=== PATIENT | male | born 1945 | race Caucasian/White ===

== ENCOUNTER 2017-06-13 12:09 | Inpatient (IN) | payer MEDICARE, OTHER ==
[~2017-06-13] VITALS: Ht 160 cm; Wt 108.0 kg
[~2017-06-13 12:09] MED LIST: ALBU8.5H5 INH; ALLO100T30 PO; ASPI-496 PO; CARV12.543 PO; CHOL500045 PO; FENO54TA17 PO; FLUT1DIS3 INH; FURO-93 PO; GEMF600T3 PO; INDO75CA3 PO; INSU100I29 SC; IRON; IRON 65 MG PO; LOSA25TA5 PO; MECL-76 PO; METF500T4 PO; MULT-224 PO; NABU500T PO; NATE120T2 PO; POTA10TA11 PO; RANI150T8 PO; SIMV20TA PO
[2017-06-13 12:35] LABS: HEMATOCRIT 42.5 % (39.2-51.8); HEMOGLOBIN 13.7 g/dL (13.7-18.0); WHITE BLOOD COUNT 5.1 x10^3/uL (3.4-10)
[2017-06-13 12:43] LABS: ASPARTATE AMINO TRANSFERASE 14 U/L (15-37); BLOOD UREA NITROGEN 22 mg/dL (7-18)
[2017-06-13 12:49] LABS: IS PT STATUS REG ER OR PRE ER? YES
[2017-06-13] MEDS ORDERED: ASPIRIN 81 MG TABLET CHEW ONE (12:49)
[2017-06-13] MEDS ORDERED: CEFTRIAXONE PMX 1GM/50ML 50 ML IVPB ONE (13:00)
[2017-06-13] MEDS ORDERED: ASPIRIN 81 MG TABLET CHEW PO ONE (13:00)
[2017-06-13] MEDS ORDERED: AZITHROMYCIN 500 MG in SODIUM CHLORIDE 0.9% 250 ML IVPB ONE (13:00)
[2017-06-13] MEDS ORDERED: SODIUM CHLORIDE FLUSH 10ML SYR IVF ONE (13:00)
[2017-06-13] MEDS ORDERED: CARV25TA12 PO ×2 (13:08→14:49)
[2017-06-13] MEDS ORDERED: CEFTRIAXONE PMX 1GM/50ML 50 ML ONE (14:06)
[2017-06-13] MEDS: AZITHROMYCIN 500 MG in SODIUM CHLORIDE 0.9% 250 ML IV SCH (14:30)
[2017-06-13] MEDS: CEFTRIAXONE PMX 1GM/50ML 50 ML IV SCH (14:30)
[2017-06-13] MEDS ORDERED: ATOR20TA9 PO (14:58)
[2017-06-13] MEDS ORDERED: INSU300I INJ (14:58)
[2017-06-13] MEDS ORDERED: NITROSPRAY (14:58)
[2017-06-13] MEDS ORDERED: FENO48TA5 PO (14:58)
[2017-06-13] MEDS ORDERED: LOSA25TA5 PO (14:58)
[2017-06-13] MEDS ORDERED: RANI150T8 PO (14:58)
[2017-06-13] MEDS ORDERED: ONDANSETRON 2MG/ML, 2ML IVPush PRN (15:00)
[2017-06-13] MEDS ORDERED: ACETAMINOPHEN 325 MG TABLET PO PRN (15:00)
[2017-06-13] MEDS ORDERED: ONDANSETRON ODT 4 MG PO PRN (15:00)
[2017-06-13] MEDS ORDERED: ALBUTEROL SULFATE 2.5 MG/3 ML NPPB PRN (16:30)
[2017-06-13] MEDS ORDERED: ENOXAPARIN 40 MG/0.4 ML ONE (17:38)
[2017-06-13] MEDS: ENOXAPARIN 40 MG/0.4 ML SQ SCH (17:43)
[2017-06-13 18:22] LABS: IS PT STATUS REG ER OR PRE ER? YES
[2017-06-13] MEDS ORDERED: ATORVASTATIN 20 MG TABLET PO SCH (21:00)
[2017-06-13] MEDS: INSULIN DETEMIR 100 UNITS/ML, PEN SQ-INSULIN SCH (21:00)
[2017-06-13] MEDS: ADVAIR INH SCH (21:00)
[2017-06-13] MEDS: CARVEDILOL 25 MG TABLET PO SCH (22:37)
[2017-06-13] MEDS: ALLOPURINOL 100 MG TABLET PO SCH ×2 (22:37→22:39)
[2017-06-13] MEDS: SIMVASTATIN 20 MG TABLET PO SCH (22:37)
[2017-06-13] MEDS: FAMOTIDINE 20 MG TABLET PO SCH (22:37)
[2017-06-14 00:36] LABS: RAPID INFLUENZA A Negative (Negative); RAPID INFLUENZA B Negative (Negative)
[2017-06-14 01:23] LABS: IS PT STATUS REG ER OR PRE ER? NO
[2017-06-14 01:26] VITALS: BP 139/78
[2017-06-14 05:08] LABS: HEMATOCRIT 38.6 % (39.2-51.8); HEMOGLOBIN 12.7 g/dL (13.7-18.0); WHITE BLOOD COUNT 4.4 x10^3/uL (3.4-10)
[2017-06-14 05:17] LABS: BLOOD UREA NITROGEN 22 mg/dL (7-18)
[2017-06-14 05:20] LABS: ASPARTATE AMINO TRANSFERASE 10 U/L (15-37)
[2017-06-14 06:54] VITALS: BP 126/70
[2017-06-14] MEDS ORDERED: FUROSEMIDE 20 MG TABLET PO SCH (09:00)
[2017-06-14] MEDS: FENOFIBRATE NANOCRYSTALLIZED 48 MG HOMEMEDPO SCH (09:00)
[2017-06-14] MEDS ORDERED: POTASSIUM CHLORIDE 10 MEQ TABLET.ER PO SCH (09:00)
[2017-06-14] MEDS: ADVAIR INH SCH ×2 (09:00→21:15)
[2017-06-14] MEDS ORDERED: FUROSEMIDE 40 MG TABLET ONE (09:06)
[2017-06-14] MEDS: methylPREDNISolone SOD SUCC 125 MG/2 ML IVPush SCH ×3 (09:10→23:34)
[2017-06-14] MEDS: GUAIFENESIN ER 600 MG TABLET PO SCH ×2 (09:11→21:26)
[2017-06-14] MEDS: ASPIRIN 81 MG TABLET EC PO SCH (09:11)
[2017-06-14] MEDS: FAMOTIDINE 20 MG TABLET PO SCH (09:12)
[2017-06-14] MEDS: ALLOPURINOL 100 MG TABLET PO SCH ×3 (09:12→21:25)
[2017-06-14] MEDS: CARVEDILOL 25 MG TABLET PO SCH ×2 (09:12→21:25)
[2017-06-14] MEDS: LOSARTAN 25MG TABLET PO SCH (09:12)
[2017-06-14 14:38] VITALS: BP 135/85
[2017-06-14] MEDS: CEFTRIAXONE PMX 1GM/50ML 50 ML IV SCH (17:27)
[2017-06-14] MEDS: ENOXAPARIN 40 MG/0.4 ML SQ SCH (17:34)
[2017-06-14] MEDS: AZITHROMYCIN 500 MG in SODIUM CHLORIDE 0.9% 250 ML IV SCH (17:52)
[2017-06-14 19:24] VITALS: BP 148/88
[2017-06-14] MEDS: INSULIN DETEMIR 100 UNITS/ML, PEN SQ-INSULIN SCH (21:00)
[2017-06-14] MEDS: SIMVASTATIN 20 MG TABLET PO SCH (21:26)
[2017-06-15 01:22] VITALS: BP 142/80
[2017-06-15 05:48] LABS: BLOOD UREA NITROGEN 26 mg/dL (7-18)
[2017-06-15] MEDS: methylPREDNISolone SOD SUCC 125 MG/2 ML IVPush SCH ×2 (07:27→18:28)
[2017-06-15] MEDS: SODIUM CHLORIDE 0.9% 1,000 ML IV SCH ×2 (07:27→20:04)
[2017-06-15 07:47] VITALS: BP 126/80
[2017-06-15] MEDS: ASPIRIN 81 MG TABLET EC PO SCH (09:29)
[2017-06-15] MEDS: FAMOTIDINE 20 MG TABLET PO SCH (09:29)
[2017-06-15] MEDS: ALLOPURINOL 100 MG TABLET PO SCH ×3 (09:29→20:02)
[2017-06-15] MEDS: FENOFIBRATE NANOCRYSTALLIZED 48 MG HOMEMEDPO SCH (09:30)
[2017-06-15] MEDS: GUAIFENESIN ER 600 MG TABLET PO SCH ×2 (09:30→20:02)
[2017-06-15] MEDS: LOSARTAN 25MG TABLET PO SCH (09:30)
[2017-06-15] MEDS: CARVEDILOL 25 MG TABLET PO SCH ×2 (09:30→20:02)
[2017-06-15] MEDS: ADVAIR INH SCH ×2 (09:30→20:06)
[2017-06-15 13:40] VITALS: BP 147/78
[2017-06-15] MEDS: CEFTRIAXONE PMX 1GM/50ML 50 ML IV SCH (14:33)
[2017-06-15] MEDS: ENOXAPARIN 40 MG/0.4 ML SQ SCH (14:33)
[2017-06-15] MEDS: AZITHROMYCIN 500 MG in SODIUM CHLORIDE 0.9% 250 ML IV SCH (18:28)
[2017-06-15 18:58] VITALS: BP 124/79
[2017-06-15] MEDS: SIMVASTATIN 20 MG TABLET PO SCH (20:03)
[2017-06-15] MEDS: INSULIN DETEMIR 100 UNITS/ML, PEN SQ-INSULIN SCH (20:11)
[2017-06-16 00:48] VITALS: BP 126/91
[2017-06-16 06:51] LABS: BLOOD UREA NITROGEN 33 mg/dL (7-18)
[2017-06-16] MEDS: FENOFIBRATE NANOCRYSTALLIZED 48 MG HOMEMEDPO SCH (09:00)
[2017-06-16] MEDS: ADVAIR INH SCH ×2 (09:00→20:18)
[2017-06-16] MEDS: GUAIFENESIN ER 600 MG TABLET PO SCH ×2 (10:22→20:16)
[2017-06-16] MEDS: ASPIRIN 81 MG TABLET EC PO SCH (10:22)
[2017-06-16] MEDS: FAMOTIDINE 20 MG TABLET PO SCH (10:22)
[2017-06-16] MEDS: methylPREDNISolone SOD SUCC 125 MG/2 ML IVPush SCH ×2 (10:22→20:15)
[2017-06-16] MEDS: CARVEDILOL 25 MG TABLET PO SCH ×2 (10:22→20:16)
[2017-06-16] MEDS: ALLOPURINOL 100 MG TABLET PO SCH ×3 (10:23→20:16)
[2017-06-16] MEDS: LOSARTAN 25MG TABLET PO SCH (10:23)
[2017-06-16] MEDS ORDERED: LABETALOL 5MG/ML, 20ML IVPush PRN (10:30)
[2017-06-16] MEDS: ENOXAPARIN 40 MG/0.4 ML SQ SCH (16:56)
[2017-06-16] MEDS: CEFTRIAXONE PMX 1GM/50ML 50 ML IV SCH (16:56)
[2017-06-16 18:53] VITALS: BP 137/82
[2017-06-16] MEDS: SIMVASTATIN 20 MG TABLET PO SCH (20:17)
[2017-06-16] MEDS: AZITHROMYCIN 500 MG in SODIUM CHLORIDE 0.9% 250 ML IV SCH (20:31)
[2017-06-16] MEDS: INSULIN DETEMIR 100 UNITS/ML, PEN SQ-INSULIN SCH (20:32)
[2017-06-16 22:22] LABS: POTASSIUM,URINE RANDOM 38 mmol/L
[2017-06-17 01:01] VITALS: BP 129/77
[2017-06-17 05:41] LABS: HEMOGLOBIN 12.9 g/dL (13.7-18.0); WHITE BLOOD COUNT 5.6 x10^3/uL (3.4-10)
[2017-06-17 06:08] LABS: BLOOD UREA NITROGEN 37 mg/dL (7-18)
[2017-06-17 06:53] VITALS: BP 119/83
[2017-06-17] MEDS: methylPREDNISolone SOD SUCC 125 MG/2 ML IVPush SCH (08:27)
[2017-06-17] MEDS: ASPIRIN 81 MG TABLET EC PO SCH (08:27)
[2017-06-17] MEDS: ALLOPURINOL 100 MG TABLET PO SCH ×2 (08:27→17:12)
[2017-06-17] MEDS: GUAIFENESIN ER 600 MG TABLET PO SCH (08:27)
[2017-06-17] MEDS: CARVEDILOL 25 MG TABLET PO SCH (08:27)
[2017-06-17] MEDS: FENOFIBRATE NANOCRYSTALLIZED 48 MG HOMEMEDPO SCH (08:31)
[2017-06-17] MEDS: ADVAIR INH SCH (08:31)
[2017-06-17] MEDS: FAMOTIDINE 20 MG TABLET PO SCH (08:33)
[2017-06-17 12:46] VITALS: BP 131/81
[2017-06-17] MEDS ORDERED: PRED10TA PO (15:31)
[2017-06-17] MEDS ORDERED: CEFP200T PO (15:31)
[2017-06-17] MEDS ORDERED: APIX5TAB PO (15:31)
[2017-06-17] MEDS ORDERED: ALBU8.5H8 IH (15:31)
[2017-06-17] MEDS ORDERED: APIXABAN 5 MG TABLET PO SCH (16:00)
== END 2017-06-17 19:00 | disposition home or self-care (01) | DRG 682 ==
LOC: ED 13:07 → EDIP 13:08 → ED 13:26 → 3NE 19:00
PROVIDERS: ADMIT Internal Medicine; ATTEND Internal Medicine
PROC: 5A09357 Assistance with Respiratory Ventilation, Less than 24 Consecutive Hours, Continuous Positive Airway Pressure (ICD-10-PCS; principal; 2017-06-14)
PROC: 5A09357 Assistance with Respiratory Ventilation, Less than 24 Consecutive Hours, Continuous Positive Airway Pressure (ICD-10-PCS; 2017-06-16)
PROC: 5A09357 Assistance with Respiratory Ventilation, Less than 24 Consecutive Hours, Continuous Positive Airway Pressure (ICD-10-PCS; 2017-06-17)
DX: N17.9 Acute kidney failure, unspecified (principal); J96.20 Acute and chronic respiratory failure, unspecified whether with hypoxia or hypercapnia; J18.1 Lobar pneumonia, unspecified organism; I13.0 Hypertensive heart and chronic kidney disease with heart failure and stage 1 through stage 4 chronic kidney disease, or unspecified chronic kidney disease; E11.22 Type 2 diabetes mellitus with diabetic chronic kidney disease; I42.9 Cardiomyopathy, unspecified; I50.40 Unspecified combined systolic (congestive) and diastolic (congestive) heart failure; Z68.41 Body mass index [BMI] 40.0-44.9, adult; J44.0 Chronic obstructive pulmonary disease with (acute) lower respiratory infection; J44.1 Chronic obstructive pulmonary disease with (acute) exacerbation; E78.5 Hyperlipidemia, unspecified; G47.33 Obstructive sleep apnea (adult) (pediatric); H81.09 Meniere's disease, unspecified ear; I25.10 Atherosclerotic heart disease of native coronary artery without angina pectoris; I25.2 Old myocardial infarction; I35.0 Nonrheumatic aortic (valve) stenosis; I48.0 Paroxysmal atrial fibrillation; I49.3 Ventricular premature depolarization; E66.9 Obesity, unspecified; G89.29 Other chronic pain; M19.90 Unspecified osteoarthritis, unspecified site; M54.9 Dorsalgia, unspecified; K21.9 Gastro-esophageal reflux disease without esophagitis; M10.9 Gout, unspecified; N18.9 Chronic kidney disease, unspecified; Z79.4 Long term (current) use of insulin; Z82.3 Family history of stroke; Z82.49 Family history of ischemic heart disease and other diseases of the circulatory system; Z87.891 Personal history of nicotine dependence; Z95.1 Presence of aortocoronary bypass graft; Z99.81 Dependence on supplemental oxygen
CPT/HCPCS: 36415; 71010; 80048; 80053; 82436; 82570; 82962; 83605; 83735; 83880; 84100; 84133; 84145; 84300; 84484; 85025; 87040; 87400; 93005; 93306; 94660; 99285; J0456; J0696; J1650; J1815; J2930; J7030; J7050

== ENCOUNTER 2017-07-29 09:43 | Inpatient (IN) | payer MEDICARE, OTHER ==
[~2017-07-29] VITALS: Ht 160 cm; Wt 108.9 kg
[~2017-07-29 09:43] MED LIST changes: +ALBU8.5H8 IH; +APIX5TAB PO; +ATOR20TA9 PO; +CARV25TA12 PO; +CEFP200T PO; +FENO48TA5 PO; +INSU300I INJ; +NITROSPRAY; +PRED10TA PO
[2017-07-29 10:19] LABS: BASOPHILS # (AUTO) 0.02 x10^3/uL (0-0.1); BASOPHILS % (AUTO) 0 % (0-1); EOSINOPHILS # (AUTO) 0.04 x10^3/uL (0-0.4); EOSINOPHILS % (AUTO) 1 % (1-7); LYMPHOCYTES # (AUTO) 0.98 x10^3/uL (1-3.4); LYMPHOCYTES % (AUTO) 15 % (22-44); MD NO; MEAN CORPUSCULAR HEMOGLOBIN 29.9 pg (27.5-34.5); MEAN CORPUSCULAR HGB CONC 31.7 g/dL (33.2-36.2); MEAN CORPUSCULAR VOLUME 94.3 fL (81-97); MONOCYTES # (AUTO) 0.75 x10^3/uL (0.2-0.8); MONOCYTES % (AUTO) 11 % (2-9); NEUTROPHILS # (AUTO) 4.89 x10^3/uL (1.8-6.8); NEUTROPHILS % (AUTO) 73 % (42-75); PLATELET COUNT 107 x10^3/uL (130-400); RED CELL DISTRIBUTION WIDTH 17.2 % (9.4-14.8)
[2017-07-29 10:28] LABS: INTERNATIONAL NORMALIZED RATIO 1.62 (0.93-1.1); PROTHROMBIN TIME 16.7 Seconds (9.6-11.5)
[2017-07-29 10:33] LABS: ALANINE AMINOTRANSFERASE 12 U/L (12-78); ALBUMIN 2.9 g/dL (3.4-5.0); ANION GAP 6 mmol/L (5-15); CALCIUM 8.3 mg/dL (8.5-10.1); CHLORIDE 107 mmol/L (98-107); CREATININE 1.04 mg/dL (0.7-1.3)
[2017-07-29 10:37] LABS: ALKALINE PHOSPHATASE 47 U/L (45-117); BILIRUBIN,TOTAL 0.6 mg/dL (0.2-1.0); TOTAL PROTEIN 6.4 g/dL (6.4-8.2); TROPONIN I < 0.015 ng/mL (0.000-0.045)
[2017-07-29] MEDS ORDERED: FUROSEMIDE 40 MG/4 ML IV ONE (12:30)
[2017-07-29] MEDS ORDERED: FUROSEMIDE 40 MG/4 ML ONE (12:46)
[2017-07-29] MEDS ORDERED: ACETAMINOPHEN 325 MG TABLET PO PRN (14:00)
[2017-07-29] MEDS ORDERED: DOCUSATE 100 MG CAPSULE PO PRN (14:00)
[2017-07-29] MEDS ORDERED: NITROGLYCERIN 0.4 MG BOTTLE (25 TABS) SL PRN (14:00)
[2017-07-29] MEDS ORDERED: ONDANSETRON 2MG/ML, 2ML IVPush PRN (14:00)
[2017-07-29] MEDS ORDERED: POLYETHYLENE GLYCOL 17 GM PACKET PO PRN (14:00)
[2017-07-29] MEDS ORDERED: morphine SULFATE 10 MG/ML, 1ML IVPush PRN (14:00)
[2017-07-29] MEDS ORDERED: ONDANSETRON ODT 4 MG PO PRN (14:00)
[2017-07-29 14:02] VITALS: BP 155/92
[2017-07-29 14:28] VITALS: BP 155/92
[2017-07-29] MEDS ORDERED: ALBUTEROL SULFATE 2.5 MG/3 ML NPPB PRN (14:30)
[2017-07-29] MEDS ORDERED: FERROUS SULFATE 325 MG TABLET PO SCH (14:30)
[2017-07-29] MEDS: INSULIN LISPRO 100 UNITS/ML, PEN SQ-INSULIN SCH ×2 (16:00→20:32)
[2017-07-29] MEDS ORDERED: MAGNESIUM SULFATE PMX 4GM/100M 100 ML IV ONE ×2 (16:00→17:00)
[2017-07-29] MEDS: ALLOPURINOL 100 MG TABLET PO SCH ×2 (17:26→20:29)
[2017-07-29] MEDS: FLUCONAZOLE 200 MG TABLET PO SCH (17:50)
[2017-07-29] MEDS ORDERED: WARFARIN 5 MG TABLET PO-COUM ONE (18:00)
[2017-07-29] MEDS ORDERED: OMNIPAQUE 350 MG/ML, 100ML BOTTLE ONE (19:04)
[2017-07-29 20:25] VITALS: BP 146/79
[2017-07-29] MEDS: SIMVASTATIN 20 MG TABLET PO SCH (20:28)
[2017-07-29] MEDS: FAMOTIDINE 20 MG TABLET PO SCH (20:28)
[2017-07-29] MEDS: DOXYCYCLINE 100MG TABLET PO SCH (20:29)
[2017-07-29] MEDS: CARVEDILOL 25 MG TABLET PO SCH (20:29)
[2017-07-29] MEDS: CEFDINIR 300 MG CAPSULE PO SCH (20:29)
[2017-07-29] MEDS: LOSARTAN 25MG TABLET PO SCH (20:29)
[2017-07-29] MEDS ORDERED: CEFPODOXIME PROXETIL 200 MG PO SCH (21:00)
[2017-07-30 02:30] VITALS: BP 131/75
[2017-07-30 05:07] LABS: BASOPHILS # (AUTO) 0.04 x10^3/uL (0-0.1); BASOPHILS % (AUTO) 1 % (0-1); EOSINOPHILS # (AUTO) 0.04 x10^3/uL (0-0.4); EOSINOPHILS % (AUTO) 1 % (1-7); LYMPHOCYTES # (AUTO) 1.23 x10^3/uL (1-3.4); LYMPHOCYTES % (AUTO) 22 % (22-44); MD NO; MEAN CORPUSCULAR HEMOGLOBIN 30.9 pg (27.5-34.5); MEAN CORPUSCULAR HGB CONC 33.1 g/dL (33.2-36.2); MEAN CORPUSCULAR VOLUME 93.5 fL (81-97); MEAN PLATELET VOLUME 9.7 fL (7.4-10.4); MONOCYTES # (AUTO) 0.72 x10^3/uL (0.2-0.8); MONOCYTES % (AUTO) 13 % (2-9); NEUTROPHILS # (AUTO) 3.59 x10^3/uL (1.8-6.8); NEUTROPHILS % (AUTO) 64 % (42-75); PLATELET COUNT 100 x10^3/uL (130-400); RED BLOOD COUNT 3.49 x10^6/uL (4.38-5.82); RED CELL DISTRIBUTION WIDTH 17.4 % (9.4-14.8)
[2017-07-30 05:08] LABS: INTERNATIONAL NORMALIZED RATIO 1.99 (0.93-1.1); PROTHROMBIN TIME 20.4 Seconds (9.6-11.5)
[2017-07-30 05:17] LABS: CHLORIDE 103 mmol/L (98-107)
[2017-07-30 05:28] LABS: ANION GAP 6 mmol/L (5-15); CALCIUM 8.3 mg/dL (8.5-10.1); CREATININE 1.17 mg/dL (0.7-1.3); TROPONIN I 0.026 ng/mL (0.000-0.045)
[2017-07-30 07:14] VITALS: BP 118/74
[2017-07-30] MEDS: INSULIN LISPRO 100 UNITS/ML, PEN SQ-INSULIN SCH ×4 (07:48→21:00)
[2017-07-30] MEDS ORDERED: REGADENOSON 0.4 MG/5 ML SYRINGE ONE (08:16)
[2017-07-30] MEDS: ALLOPURINOL 100 MG TABLET PO SCH ×3 (09:00→21:58)
[2017-07-30] MEDS ORDERED: LOSARTAN 25MG TABLET PO SCH (09:00)
[2017-07-30] MEDS ORDERED: MAGNESIUM SULFATE PMX 2GM/50ML 50 ML IV ONE (12:00)
[2017-07-30] MEDS ORDERED: SPIRONOLACTONE 100 MG TABLET ONE (12:04)
[2017-07-30 12:05] VITALS: BP 117/64
[2017-07-30] MEDS: FUROSEMIDE 40 MG/4 ML IV SCH (12:10)
[2017-07-30] MEDS: SPIRONOLACTONE 25 MG TABLET PO SCH (12:11)
[2017-07-30] MEDS: ASPIRIN 81 MG TABLET EC PO SCH (12:12)
[2017-07-30] MEDS: CHOLECALCIFEROL 1,000 UNIT TABLET PO SCH (12:13)
[2017-07-30] MEDS: FENOFIBRATE 54 MG TABLET PO SCH (12:14)
[2017-07-30] MEDS: CEFDINIR 300 MG CAPSULE PO SCH ×2 (12:14→21:59)
[2017-07-30] MEDS: FLUCONAZOLE 200 MG TABLET PO SCH (12:14)
[2017-07-30] MEDS: CARVEDILOL 25 MG TABLET PO SCH ×2 (12:15→21:59)
[2017-07-30] MEDS: FAMOTIDINE 20 MG TABLET PO SCH ×2 (12:15→21:59)
[2017-07-30] MEDS: MULTIVITAMIN 1 TABLET PO SCH (12:15)
[2017-07-30] MEDS: DOXYCYCLINE 100MG TABLET PO SCH ×2 (12:16→21:00)
[2017-07-30] MEDS: LOSARTAN 25MG TABLET PO SCH ×2 (12:16→21:58)
[2017-07-30] MEDS: FERROUS SULFATE 325 MG TABLET PO SCH (12:17)
[2017-07-30] MEDS: MECLIZINE CHEWABLE 25 MG TAB PO SCH (12:57)
[2017-07-30] MEDS: INSULIN GLARGINE 100 UNITS/ML, PEN SQ-INSULIN SCH (12:58)
[2017-07-30] MEDS ORDERED: WARFARIN 2.5 MG TABLET PO-COUM ONE (18:00)
[2017-07-30 19:51] VITALS: BP 125/78
[2017-07-30] MEDS: SIMVASTATIN 20 MG TABLET PO SCH (21:59)
[2017-07-31 01:23] VITALS: BP 119/74
[2017-07-31] MEDS ORDERED: MAALOX/HYOSCYAMINE/LIDOCAINE 45 ML BTL PO ONE (02:30)
[2017-07-31 05:19] LABS: INTERNATIONAL NORMALIZED RATIO 2.52 (0.93-1.1); PROTHROMBIN TIME 25.7 Seconds (9.6-11.5)
[2017-07-31 05:24] LABS: ALBUMIN 2.8 g/dL (3.4-5.0); ANION GAP 10 mmol/L (5-15); CALCIUM 8.2 mg/dL (8.5-10.1); CHLORIDE 104 mmol/L (98-107)
[2017-07-31 05:35] LABS: % IRON SATURATION 10 % (20-55); CREATININE 1.36 mg/dL (0.7-1.3); IRON LEVEL 26 mcg/dL (65-175); TOTAL IRON BINDING CAPACITY 273 mcg/dL (250-450)
[2017-07-31] MEDS: INSULIN LISPRO 100 UNITS/ML, PEN SQ-INSULIN SCH ×4 (06:57→21:00)
[2017-07-31 07:32] VITALS: BP 105/74
[2017-07-31] MEDS ORDERED: SPIRONOLACTONE 100 MG TABLET ONE (09:06)
[2017-07-31] MEDS: LOSARTAN 25MG TABLET PO SCH ×2 (09:25→21:17)
[2017-07-31] MEDS: CHOLECALCIFEROL 1,000 UNIT TABLET PO SCH (09:26)
[2017-07-31] MEDS: MULTIVITAMIN 1 TABLET PO SCH (09:27)
[2017-07-31] MEDS: FAMOTIDINE 20 MG TABLET PO SCH ×2 (09:27→21:17)
[2017-07-31] MEDS: ALLOPURINOL 100 MG TABLET PO SCH ×3 (09:27→21:17)
[2017-07-31] MEDS: FLUCONAZOLE 200 MG TABLET PO SCH (09:27)
[2017-07-31] MEDS: ASPIRIN 81 MG TABLET EC PO SCH (09:27)
[2017-07-31] MEDS: CARVEDILOL 25 MG TABLET PO SCH ×2 (09:27→21:16)
[2017-07-31] MEDS: CEFDINIR 300 MG CAPSULE PO SCH (09:27)
[2017-07-31] MEDS: DOXYCYCLINE 100MG TABLET PO SCH (09:27)
[2017-07-31] MEDS: SPIRONOLACTONE 25 MG TABLET PO SCH (09:28)
[2017-07-31] MEDS: MECLIZINE CHEWABLE 25 MG TAB PO SCH (09:29)
[2017-07-31] MEDS: FUROSEMIDE 40 MG/4 ML IV SCH (09:29)
[2017-07-31] MEDS: INSULIN GLARGINE 100 UNITS/ML, PEN SQ-INSULIN SCH (09:32)
[2017-07-31 12:27] VITALS: BP 124/79
[2017-07-31] MEDS: FENOFIBRATE 54 MG TABLET PO SCH (12:54)
[2017-07-31] MEDS: FERROUS SULFATE 325 MG TABLET PO SCH ×3 (12:55→16:53)
[2017-07-31] MEDS ORDERED: LOSA25TA5 PO (14:02)
[2017-07-31] MEDS ORDERED: NITR0.4T SL (14:02)
[2017-07-31] MEDS ORDERED: SPIR25TA PO (14:02)
[2017-07-31] MEDS ORDERED: WARFARIN 1 MG TABLET PO-COUM ONE (18:00)
[2017-07-31 18:41] VITALS: BP 115/64
[2017-07-31] MEDS ORDERED: APIXABAN 5 MG TABLET PO SCH (21:00)
[2017-07-31] MEDS: SIMVASTATIN 20 MG TABLET PO SCH (21:16)
[2017-07-31] MEDS ORDERED: [UNRECOGNIZED DRUG - REMARK] MC PRN (21:30)
[2017-08-01 01:17] VITALS: BP 121/73
[2017-08-01 05:04] LABS: INTERNATIONAL NORMALIZED RATIO 2.43 (0.93-1.1); PROTHROMBIN TIME 24.8 Seconds (9.6-11.5)
[2017-08-01 05:18] LABS: CHLORIDE 101 mmol/L (98-107)
[2017-08-01 05:32] LABS: ANION GAP 8 mmol/L (5-15); CALCIUM 8.7 mg/dL (8.5-10.1); CREATININE 1.64 mg/dL (0.7-1.3)
[2017-08-01] MEDS: INSULIN LISPRO 100 UNITS/ML, PEN SQ-INSULIN SCH ×4 (07:00→20:07)
[2017-08-01 07:20] VITALS: BP 121/77
[2017-08-01] MEDS ORDERED: APIXABAN MC PRN (08:00)
[2017-08-01] MEDS ORDERED: ALBUMIN HUMAN 25% 1 GM in SYRINGE 1 EA IV ONE (08:00)
[2017-08-01] MEDS ORDERED: ALBUMIN HUMAN 25% 50 ML IV ONE (08:30)
[2017-08-01] MEDS: FENOFIBRATE 54 MG TABLET PO SCH (09:24)
[2017-08-01] MEDS: MECLIZINE CHEWABLE 25 MG TAB PO SCH (09:24)
[2017-08-01] MEDS: SPIRONOLACTONE 25 MG TABLET PO SCH (09:24)
[2017-08-01] MEDS: FERROUS SULFATE 325 MG TABLET PO SCH ×4 (09:24→16:21)
[2017-08-01] MEDS: MULTIVITAMIN 1 TABLET PO SCH (09:25)
[2017-08-01] MEDS: LOSARTAN 25MG TABLET PO SCH ×2 (09:25→20:02)
[2017-08-01] MEDS: ASPIRIN 81 MG TABLET EC PO SCH (09:25)
[2017-08-01] MEDS: ALLOPURINOL 100 MG TABLET PO SCH ×3 (09:25→20:02)
[2017-08-01] MEDS: FAMOTIDINE 20 MG TABLET PO SCH (09:25)
[2017-08-01] MEDS: CARVEDILOL 25 MG TABLET PO SCH ×2 (09:25→20:02)
[2017-08-01] MEDS: CHOLECALCIFEROL 1,000 UNIT TABLET PO SCH (09:25)
[2017-08-01] MEDS: MAGNESIUM OXIDE 400 MG TABLET PO SCH ×2 (09:25→20:02)
[2017-08-01] MEDS: CEFDINIR 300 MG CAPSULE PO SCH ×2 (09:25→20:02)
[2017-08-01] MEDS: INSULIN GLARGINE 100 UNITS/ML, PEN SQ-INSULIN SCH (09:26)
[2017-08-01 13:46] VITALS: BP 128/84
[2017-08-01 14:10] VITALS: BP 128/84
[2017-08-01 19:04] VITALS: BP 119/66
[2017-08-01] MEDS: SIMVASTATIN 20 MG TABLET PO SCH (20:02)
[2017-08-02 01:09] VITALS: BP 125/75
[2017-08-02 04:57] LABS: ANION GAP 8 mmol/L (5-15); CALCIUM 8.2 mg/dL (8.5-10.1); CHLORIDE 104 mmol/L (98-107); CREATININE 1.55 mg/dL (0.7-1.3)
[2017-08-02 05:02] LABS: INTERNATIONAL NORMALIZED RATIO 2.3 (0.93-1.1); PROTHROMBIN TIME 23.5 Seconds (9.6-11.5)
[2017-08-02] MEDS: INSULIN LISPRO 100 UNITS/ML, PEN SQ-INSULIN SCH (07:00)
[2017-08-02 07:28] VITALS: BP 107/66
[2017-08-02] MEDS ORDERED: CEFD300C37 PO (07:42)
[2017-08-02] MEDS ORDERED: DOXY100T PO (07:42)
[2017-08-02] MEDS ORDERED: LACT1CAP24 PO (07:42)
[2017-08-02] MEDS ORDERED: APIX2.5T PO (07:53)
[2017-08-02] MEDS ORDERED: FERR325T18 PO (07:59)
[2017-08-02] MEDS ORDERED: MAGN400T26 PO (07:59)
[2017-08-02] MEDS: FERROUS SULFATE 325 MG TABLET PO SCH (08:00)
[2017-08-02] MEDS: ALLOPURINOL 100 MG TABLET PO SCH (08:36)
[2017-08-02] MEDS: MAGNESIUM OXIDE 400 MG TABLET PO SCH (08:36)
[2017-08-02] MEDS: CHOLECALCIFEROL 1,000 UNIT TABLET PO SCH (08:36)
[2017-08-02] MEDS: CEFDINIR 300 MG CAPSULE PO SCH (08:36)
[2017-08-02] MEDS: LOSARTAN 25MG TABLET PO SCH (08:36)
[2017-08-02] MEDS: FENOFIBRATE 54 MG TABLET PO SCH (08:36)
[2017-08-02] MEDS: MECLIZINE CHEWABLE 25 MG TAB PO SCH (08:36)
[2017-08-02] MEDS: MULTIVITAMIN 1 TABLET PO SCH (08:36)
[2017-08-02] MEDS: CARVEDILOL 25 MG TABLET PO SCH (08:36)
[2017-08-02] MEDS: ASPIRIN 81 MG TABLET EC PO SCH (08:36)
[2017-08-02] MEDS: INSULIN GLARGINE 100 UNITS/ML, PEN SQ-INSULIN SCH (08:37)
[2017-08-02] MEDS: SPIRONOLACTONE 25 MG TABLET PO SCH (08:37)
[2017-08-02] MEDS ORDERED: FAMOTIDINE 20 MG TABLET PO SCH (09:00)
== END 2017-08-02 10:13 | disposition home health service (06) | DRG 291 ==
LOC: ED 10:54 → EDIP 12:07 → 5SO 13:43 → 4WST 07-31 21:50 → DCLOUNGE 08-02 09:54
PROVIDERS: ADMIT Hospitalist; ATTEND Internal Medicine
DX: I11.0 Hypertensive heart disease with heart failure (principal); E43 Unspecified severe protein-calorie malnutrition; I47.2 Ventricular tachycardia; N17.9 Acute kidney failure, unspecified; J96.10 Chronic respiratory failure, unspecified whether with hypoxia or hypercapnia; I27.20 Pulmonary hypertension, unspecified; D68.59 Other primary thrombophilia; D69.6 Thrombocytopenia, unspecified; Z68.41 Body mass index [BMI] 40.0-44.9, adult; J98.11 Atelectasis; D64.9 Anemia, unspecified; I50.43 Acute on chronic combined systolic (congestive) and diastolic (congestive) heart failure; E78.5 Hyperlipidemia, unspecified; I25.10 Atherosclerotic heart disease of native coronary artery without angina pectoris; E11.9 Type 2 diabetes mellitus without complications; G89.29 Other chronic pain; H81.09 Meniere's disease, unspecified ear; D50.9 Iron deficiency anemia, unspecified; E66.9 Obesity, unspecified; G47.33 Obstructive sleep apnea (adult) (pediatric); I25.2 Old myocardial infarction; I25.5 Ischemic cardiomyopathy; I35.0 Nonrheumatic aortic (valve) stenosis; I48.0 Paroxysmal atrial fibrillation; K21.9 Gastro-esophageal reflux disease without esophagitis; M10.9 Gout, unspecified; Z79.01 Long term (current) use of anticoagulants; Z79.4 Long term (current) use of insulin; Z82.3 Family history of stroke; Z82.49 Family history of ischemic heart disease and other diseases of the circulatory system; Z87.01 Personal history of pneumonia (recurrent); Z87.891 Personal history of nicotine dependence; Z95.1 Presence of aortocoronary bypass graft; Z99.81 Dependence on supplemental oxygen; I25.9 Chronic ischemic heart disease, unspecified; M54.9 Dorsalgia, unspecified
CPT/HCPCS: 36415; 71045; 71275; 78452; 80048; 80053; 82040; 82962; 83036; 83540; 83550; 83735; 83880; 84100; 84145; 84443; 84484; 85025; 85610; 85730; 93005; 93017; 96374; J1940; J2785; P9047; Q9967; A9502; C9898; J1815; J3475

== ENCOUNTER 2018-03-07 13:50 | Inpatient (IN) | payer MEDICARE, OTHER ==
[~2018-03-07] VITALS: Ht 157.5 cm; Wt 102.8 kg
[~2018-03-07 13:50] MED LIST changes: +APIX2.5T PO; +ATOR40TA78 PO; +CEFD300C37 PO; +DOXY100T PO; +FENO145T32 PO; +FERR325T18 PO; -GEMF600T3 PO; +GEMF600T4 PO; +LACT1CAP24 PO; -LOSA25TA5 PO; +LOSA25TA6 PO; +MAGN400T26 PO; +METF500T17 PO; -METF500T4 PO; +NITR0.4T SL; +RANI150T23 PO; -RANI150T8 PO; +SPIR25TA PO; +TORS20TA PO
[2018-03-07] MEDS ORDERED: SODIUM CHLORIDE FLUSH 10ML SYR IVF ONE (14:30)
[2018-03-07 14:32] LABS: BASOPHILS # (AUTO) 0.02 x10^3/uL (0-0.1); BASOPHILS % (AUTO) 0 % (0-1); EOSINOPHILS # (AUTO) 0.04 x10^3/uL (0-0.4); EOSINOPHILS % (AUTO) 1 % (1-7); LYMPHOCYTES # (AUTO) 0.96 x10^3/uL (1-3.4); LYMPHOCYTES % (AUTO) 17 % (22-44); MD NO; MEAN CORPUSCULAR HEMOGLOBIN 31.4 pg (27.5-34.5); MEAN CORPUSCULAR HGB CONC 32.9 g/dL (33.2-36.2); MEAN CORPUSCULAR VOLUME 95.4 fL (81-97); MEAN PLATELET VOLUME 8.9 fL (7.4-10.4); MONOCYTES # (AUTO) 0.63 x10^3/uL (0.2-0.8); MONOCYTES % (AUTO) 11 % (2-9); NEUTROPHILS # (AUTO) 4.18 x10^3/uL (1.8-6.8); NEUTROPHILS % (AUTO) 72 % (42-75); PLATELET COUNT 166 x10^3/uL (130-400); RED BLOOD COUNT 3.51 x10^6/uL (4.38-5.82); RED CELL DISTRIBUTION WIDTH 15.3 % (9.4-14.8)
[2018-03-07] MEDS ORDERED: CARV25TA12 PO (14:34)
[2018-03-07 14:35] LABS: ALBUMIN 3.1 g/dL (3.4-5.0); ANION GAP 8 mmol/L (5-15); CALCIUM 8.5 mg/dL (8.5-10.1); CHLORIDE 107 mmol/L (98-107); INTERNATIONAL NORMALIZED RATIO 1.07 (0.93-1.1); PROTHROMBIN TIME 11.1 Seconds (9.6-11.5)
[2018-03-07] MEDS ORDERED: LOSA25TA6 PO (14:35)
[2018-03-07] MEDS ORDERED: MECL25TA4 PO (14:36)
[2018-03-07 14:38] LABS: TROPONIN I 0.022 ng/mL (0.000-0.045)
[2018-03-07] MEDS ORDERED: NITR12SP2 TL (14:38)
[2018-03-07] MEDS ORDERED: FERR140T3 PO (14:40)
[2018-03-07] MEDS ORDERED: IRON15TA3 PO (14:41)
[2018-03-07] MEDS ORDERED: FLUO10CA13 PO (14:42)
[2018-03-07] MEDS ORDERED: ACET325T14 PO (14:44)
[2018-03-07] MEDS ORDERED: ASPIRIN 81 MG TABLET CHEW PO ONE (17:00)
[2018-03-07] MEDS ORDERED: ASPIRIN 81 MG TABLET CHEW ONE (17:07)
[2018-03-07] MEDS ORDERED: LIDOCAINE-MPF 2%, 2ML ONE (17:13)
[2018-03-07] MEDS ORDERED: CEFTRIAXONE 1,000 MG in SODIUM CHLORIDE 0.9% 50 ML IV ONE (17:30)
[2018-03-07] MEDS ORDERED: CEFTRIAXONE PMX 1GM/50ML 50 ML ONE (17:35)
[2018-03-07] MEDS ORDERED: GUAIFENESIN/DM 200-20MG, 10ML UDC PO PRN (18:00)
[2018-03-07] MEDS ORDERED: ONDANSETRON ODT 4 MG PO PRN (18:00)
[2018-03-07] MEDS ORDERED: LABETALOL 5MG/ML, 20ML IVPush PRN (18:00)
[2018-03-07] MEDS ORDERED: ACETAMINOPHEN 325 MG TABLET PO SCH (18:00)
[2018-03-07] MEDS ORDERED: ONDANSETRON 2MG/ML, 2ML IVPush PRN (18:00)
[2018-03-07] MEDS ORDERED: POLYETHYLENE GLYCOL 17 GM PACKET PO PRN (18:00)
[2018-03-07 18:10] VITALS: BP 157/74
[2018-03-07 18:40] LABS: FREE T4 (FREE THYROXINE) 1.11 ng/dL (0.76-1.46); THYROID STIMULATING HORMONE 1.74 mIU/L (0.358-3.740)
[2018-03-07 20:00] VITALS: BP 146/84
[2018-03-07 20:03] LABS: MICROSCOPIC INDICATED
[2018-03-07 20:04] LABS: CULTURE INDICATED? YES
[2018-03-07] MEDS ORDERED: ALBUTEROL SULFATE 2.5 MG/3 ML NPPB PRN (20:30)
[2018-03-07] MEDS: ATORVASTATIN 40 MG TABLET PO SCH (21:08)
[2018-03-07] MEDS: MECLIZINE 12.5 MG TABLET PO SCH (21:08)
[2018-03-07] MEDS: DOXYCYCLINE 100MG TABLET PO SCH (21:09)
[2018-03-08] MEDS ORDERED: ACETAMINOPHEN 325 MG TABLET PO PRN ×2 (00:30)
[2018-03-08 02:00] VITALS: BP 129/78
[2018-03-08] MEDS: CEFTRIAXONE 2 GM in SODIUM CHLORIDE 0.9% 50 ML IV SCH (05:33)
[2018-03-08] MEDS: ASPIRIN 81 MG TABLET EC PO SCH (05:33)
[2018-03-08 06:16] LABS: BASOPHILS # (AUTO) 0.01 x10^3/uL (0-0.1); BASOPHILS % (AUTO) 0 % (0-1); EOSINOPHILS % (AUTO) 0 % (1-7); LYMPHOCYTES # (AUTO) 0.55 x10^3/uL (1-3.4); LYMPHOCYTES % (AUTO) 12 % (22-44); MD NO; MEAN CORPUSCULAR HEMOGLOBIN 32.1 pg (27.5-34.5); MEAN CORPUSCULAR HGB CONC 33.7 g/dL (33.2-36.2); MEAN CORPUSCULAR VOLUME 95.1 fL (81-97); MEAN PLATELET VOLUME 9.1 fL (7.4-10.4); MONOCYTES % (AUTO) 5 % (2-9); NEUTROPHILS # (AUTO) 3.83 x10^3/uL (1.8-6.8); NEUTROPHILS % (AUTO) 83 % (42-75); PLATELET COUNT 144 x10^3/uL (130-400); RED CELL DISTRIBUTION WIDTH 15.1 % (9.4-14.8)
[2018-03-08 06:23] LABS: CHLORIDE 106 mmol/L (98-107)
[2018-03-08 06:36] LABS: ALANINE AMINOTRANSFERASE 10 U/L (12-78); ALBUMIN 2.8 g/dL (3.4-5.0); ALKALINE PHOSPHATASE 45 U/L (45-117); ANION GAP 7 mmol/L (5-15); BILIRUBIN,TOTAL 0.4 mg/dL (0.2-1.0); CALCIUM 8.4 mg/dL (8.5-10.1); CHOL/HDL RATIO 3.3; CHOLESTEROL, TOTAL 123 mg/dL (140-239); CREATININE 1.38 mg/dL (0.7-1.3); HDL CHOL % 30 % (26-37); HDL CHOLESTEROL (DIRECT) 37 mg/dL (40-60); LDL CHOLESTEROL,CALCULATED 64 mg/dL (54-169); LDL/HDL RATIO 1.7 (0.5-3.0); THYROID STIMULATING HORMONE 0.754 mIU/L (0.358-3.740); TOTAL PROTEIN 6.4 g/dL (6.4-8.2); TRIGLYCERIDES 108 mg/dL (50-200); VLDL CHOLESTEROL 22 mg/dL (0-25)
[2018-03-08 07:28] VITALS: BP 133/79
[2018-03-08] MEDS: SENNA/DOCUSATE TABLET PO SCH (09:00)
[2018-03-08] MEDS ORDERED: LOSARTAN POTASSIUM 20 MG PO SCH (09:00)
[2018-03-08] MEDS ORDERED: FUROSEMIDE 40 MG/4 ML IV SCH (09:00)
[2018-03-08 09:20] VITALS: BP 126/70
[2018-03-08] MEDS: MECLIZINE 12.5 MG TABLET PO SCH ×2 (09:29→20:39)
[2018-03-08] MEDS: FENOFIBRATE 145 MG TABLET PO SCH (09:29)
[2018-03-08] MEDS: FLUOXETINE 10 MG CAP PO SCH (09:29)
[2018-03-08] MEDS: CHOLECALCIFEROL 5,000u TAB PO SCH (09:29)
[2018-03-08] MEDS: DOXYCYCLINE 100MG TABLET PO SCH ×2 (09:30→20:39)
[2018-03-08] MEDS: SPIRONOLACTONE 50 MG TABLET PO SCH (09:30)
[2018-03-08] MEDS: MULTIVITAMIN 1 TABLET PO SCH (09:30)
[2018-03-08] MEDS: ALLOPURINOL 100 MG TABLET PO SCH (09:30)
[2018-03-08] MEDS: CARVEDILOL 25 MG TABLET PO SCH (09:30)
[2018-03-08] MEDS: INSULIN GLARGINE 100 UNITS/ML, PEN SQ-INSULIN SCH (11:51)
[2018-03-08] MEDS: LOSARTAN 25MG TABLET PO SCH ×2 (11:52→20:39)
[2018-03-08 12:30] VITALS: BP 147/83
[2018-03-08] MEDS: APIXABAN 2.5 MG TABLET PO SCH ×2 (12:39→20:39)
[2018-03-08] MEDS ORDERED: CEFTRIAXONE 2 GM in SODIUM CHLORIDE 0.9% 50 ML IV SCH (18:00)
[2018-03-08 20:00] VITALS: BP 125/63
[2018-03-08] MEDS: ATORVASTATIN 40 MG TABLET PO SCH (20:39)
[2018-03-08] MEDS ORDERED: DEXTROSE 4 GM TAB.CHEW PO PRN (21:00)
[2018-03-08] MEDS ORDERED: GLUCAGON 1 MG IM PRN (21:00)
[2018-03-08] MEDS ORDERED: DEXTROSE 50%, 50ML SYRINGE IVPush PRN (21:00)
[2018-03-08] MEDS: SODIUM CHLORIDE FLUSH 10ML SYR IVF SCH (21:21)
[2018-03-08] MEDS: INSULIN LISPRO 100 UNITS/ML, PEN SQ-INSULIN SCH (21:22)
[2018-03-09 01:54] VITALS: BP 129/87
[2018-03-09 05:32] LABS: CHLORIDE 105 mmol/L (98-107)
[2018-03-09 05:36] LABS: BASOPHILS # (AUTO) 0.01 x10^3/uL (0-0.1); BASOPHILS % (AUTO) 0 % (0-1); EOSINOPHILS % (AUTO) 0 % (1-7); LYMPHOCYTES # (AUTO) 0.77 x10^3/uL (1-3.4); LYMPHOCYTES % (AUTO) 10 % (22-44); MD NO; MEAN CORPUSCULAR HEMOGLOBIN 31.1 pg (27.5-34.5); MEAN CORPUSCULAR HGB CONC 32.7 g/dL (33.2-36.2); MEAN CORPUSCULAR VOLUME 95.2 fL (81-97); MEAN PLATELET VOLUME 9.4 fL (7.4-10.4); MONOCYTES # (AUTO) 0.73 x10^3/uL (0.2-0.8); MONOCYTES % (AUTO) 10 % (2-9); NEUTROPHILS # (AUTO) 5.85 x10^3/uL (1.8-6.8); NEUTROPHILS % (AUTO) 80 % (42-75); PLATELET COUNT 156 x10^3/uL (130-400); RED BLOOD COUNT 3.35 x10^6/uL (4.38-5.82); RED CELL DISTRIBUTION WIDTH 15.3 % (9.4-14.8)
[2018-03-09 05:40] LABS: ALANINE AMINOTRANSFERASE 12 U/L (12-78); ALKALINE PHOSPHATASE 45 U/L (45-117); ANION GAP 7 mmol/L (5-15); BILIRUBIN,TOTAL 0.3 mg/dL (0.2-1.0); CALCIUM 8.6 mg/dL (8.5-10.1); CREATININE 1.68 mg/dL (0.7-1.3); TOTAL PROTEIN 6.9 g/dL (6.4-8.2)
[2018-03-09] MEDS: ASPIRIN 81 MG TABLET EC PO SCH (05:56)
[2018-03-09] MEDS: CEFTRIAXONE 2 GM in SODIUM CHLORIDE 0.9% 50 ML IV SCH (05:56)
[2018-03-09] MEDS: INSULIN LISPRO 100 UNITS/ML, PEN SQ-INSULIN SCH ×3 (08:26→17:45)
[2018-03-09] MEDS: INSULIN GLARGINE 100 UNITS/ML, PEN SQ-INSULIN SCH (08:26)
[2018-03-09] MEDS: MECLIZINE 12.5 MG TABLET PO SCH (08:29)
[2018-03-09] MEDS: APIXABAN 2.5 MG TABLET PO SCH (08:29)
[2018-03-09] MEDS: FLUOXETINE 10 MG CAP PO SCH (08:30)
[2018-03-09] MEDS: CARVEDILOL 25 MG TABLET PO SCH (08:30)
[2018-03-09] MEDS: ALLOPURINOL 100 MG TABLET PO SCH (08:30)
[2018-03-09] MEDS: FENOFIBRATE 145 MG TABLET PO SCH (08:30)
[2018-03-09] MEDS: MULTIVITAMIN 1 TABLET PO SCH (08:30)
[2018-03-09] MEDS: CHOLECALCIFEROL 5,000u TAB PO SCH (08:30)
[2018-03-09] MEDS: SPIRONOLACTONE 50 MG TABLET PO SCH (08:31)
[2018-03-09] MEDS: SODIUM CHLORIDE FLUSH 10ML SYR IVF SCH (08:31)
[2018-03-09] MEDS: LOSARTAN 25MG TABLET PO SCH (08:31)
[2018-03-09] MEDS: DOXYCYCLINE 100MG TABLET PO SCH (08:31)
[2018-03-09] MEDS: SENNA/DOCUSATE TABLET PO SCH (08:31)
[2018-03-09 08:34] VITALS: BP 124/81
[2018-03-09] MEDS ORDERED: FUROSEMIDE 20 MG/2 ML IV SCH (09:00)
[2018-03-09 13:00] VITALS: BP 113/64
[2018-03-09] MEDS ORDERED: CEFD300C37 PO (16:21)
[2018-03-09] MEDS ORDERED: DOXY100T PO (16:22)
== END 2018-03-09 18:25 | disposition home or self-care (01) | DRG 291 ==
LOC: ED 15:20 → EDIP 16:55 → 5SO 18:02
PROVIDERS: ADMIT Hospitalist; ATTEND Hospitalist
PROC: 0W993ZZ Drainage of Right Pleural Cavity, Percutaneous Approach (ICD-10-PCS; principal; 2018-03-07)
DX: I13.0 Hypertensive heart and chronic kidney disease with heart failure and stage 1 through stage 4 chronic kidney disease, or unspecified chronic kidney disease (principal); I50.43 Acute on chronic combined systolic (congestive) and diastolic (congestive) heart failure; J18.9 Pneumonia, unspecified organism; J96.21 Acute and chronic respiratory failure with hypoxia; D68.69 Other thrombophilia; J44.0 Chronic obstructive pulmonary disease with (acute) lower respiratory infection; J44.1 Chronic obstructive pulmonary disease with (acute) exacerbation; J90 Pleural effusion, not elsewhere classified; Z68.41 Body mass index [BMI] 40.0-44.9, adult; D64.9 Anemia, unspecified; N18.3 Chronic kidney disease, stage 3 (moderate); E11.22 Type 2 diabetes mellitus with diabetic chronic kidney disease; E11.65 Type 2 diabetes mellitus with hyperglycemia; E11.649 Type 2 diabetes mellitus with hypoglycemia without coma; E78.5 Hyperlipidemia, unspecified; I25.10 Atherosclerotic heart disease of native coronary artery without angina pectoris; I25.5 Ischemic cardiomyopathy; I48.91 Unspecified atrial fibrillation; I27.20 Pulmonary hypertension, unspecified; K21.9 Gastro-esophageal reflux disease without esophagitis; M10.9 Gout, unspecified; E11.21 Type 2 diabetes mellitus with diabetic nephropathy; E66.01 Morbid (severe) obesity due to excess calories; M19.90 Unspecified osteoarthritis, unspecified site; G89.29 Other chronic pain; M54.9 Dorsalgia, unspecified; H81.09 Meniere's disease, unspecified ear; Z95.1 Presence of aortocoronary bypass graft; Z87.891 Personal history of nicotine dependence; Z82.49 Family history of ischemic heart disease and other diseases of the circulatory system; Z82.0 Family history of epilepsy and other diseases of the nervous system; I25.2 Old myocardial infarction
CPT/HCPCS: 32555; 36415; 71045; 71250; 80048; 80053; 80061; 81001; 82040; 82945; 82962; 83605; 83615; 83735; 83880; 83986; 84100; 84145; 84439; 84443; 84484; 85025; 85610; 87040; 87070; 87086; 87205; 88112; 88305; 89051; 93005; 96374; 99285; G0378; J0696; J1940; J3490; J1815; J7512

== ENCOUNTER 2018-03-22 10:47 | Inpatient (IN) | payer MEDICARE, OTHER ==
[~2018-03-22] VITALS: Ht 157.5 cm; Wt 114.5 kg
[~2018-03-22 10:47] MED LIST changes: +ACET325T14 PO; +FERR140T3 PO; +FLUO10CA13 PO; +IRON15TA3 PO; +MECL25TA4 PO; +NITR12SP2 TL
[2018-03-22] MEDS ORDERED: FUROSEMIDE 40 MG/4 ML IV ONE (11:30)
[2018-03-22] MEDS ORDERED: FUROSEMIDE 40 MG/4 ML ONE (11:34)
[2018-03-22 11:51] LABS: BASOPHILS # (AUTO) 0.03 x10^3/uL (0-0.1); BASOPHILS % (AUTO) 1 % (0-1); EOSINOPHILS # (AUTO) 0.04 x10^3/uL (0-0.4); EOSINOPHILS % (AUTO) 1 % (1-7); LYMPHOCYTES # (AUTO) 0.71 x10^3/uL (1-3.4); LYMPHOCYTES % (AUTO) 15 % (22-44); MD NO; MEAN CORPUSCULAR HEMOGLOBIN 31.4 pg (27.5-34.5); MEAN CORPUSCULAR HGB CONC 32.9 g/dL (33.2-36.2); MEAN CORPUSCULAR VOLUME 95.5 fL (81-97); MEAN PLATELET VOLUME 8.8 fL (7.4-10.4); MONOCYTES # (AUTO) 0.45 x10^3/uL (0.2-0.8); MONOCYTES % (AUTO) 9 % (2-9); NEUTROPHILS # (AUTO) 3.51 x10^3/uL (1.8-6.8); NEUTROPHILS % (AUTO) 74 % (42-75); PLATELET COUNT 125 x10^3/uL (130-400); RED BLOOD COUNT 3.53 x10^6/uL (4.38-5.82); RED CELL DISTRIBUTION WIDTH 15.1 % (9.4-14.8)
[2018-03-22 12:04] LABS: ALBUMIN 3.2 g/dL (3.4-5.0); ANION GAP 6 mmol/L (5-15); CALCIUM 8.4 mg/dL (8.5-10.1); CHLORIDE 108 mmol/L (98-107)
[2018-03-22 12:07] LABS: ALANINE AMINOTRANSFERASE 16 U/L (12-78); CREATININE 1.36 mg/dL (0.7-1.3)
[2018-03-22 12:11] LABS: ALKALINE PHOSPHATASE 43 U/L (45-117); BILIRUBIN,TOTAL 0.4 mg/dL (0.2-1.0); TROPONIN I 0.019 ng/mL (0.000-0.045)
[2018-03-22] MEDS ORDERED: TORS20TA2 PO (12:22)
[2018-03-22] MEDS ORDERED: LOSA25TA2 PO (12:22)
[2018-03-22] MEDS ORDERED: MECL-76 PO (12:22)
[2018-03-22] MEDS ORDERED: ACETAMINOPHEN 325 MG TABLET PO PRN (13:00)
[2018-03-22] MEDS ORDERED: MECLIZINE HCL 25 MG PO SCH (13:00)
[2018-03-22] MEDS ORDERED: ACETAMINOPHEN 325 MG TABLET PO SCH (13:00)
[2018-03-22] MEDS ORDERED: TEMPLATE NON-FORMULARY MED. (Albuterol Sulfate** (Albuterol Sulfate Hfa**) 2 PUFF(S)) INH PRN (13:00)
[2018-03-22] MEDS ORDERED: NITROGLYCERIN 0.4 MG/SPRAY TL SCH (13:00)
[2018-03-22] MEDS ORDERED: PROMETHAZINE 25 MG/ML, 1ML IM PRN (13:00)
[2018-03-22 13:30] LABS: TROPONIN I 0.015 ng/mL (0.000-0.045)
[2018-03-22 13:58] LABS: HEMOGLOBIN A1C 6.2 % (4.2-6.3)
[2018-03-22] MEDS ORDERED: LIDOCAINE-MPF 2%, 2ML ONE (14:05)
[2018-03-22] MEDS ORDERED: ALBUTEROL SULFATE 2.5 MG/3 ML NPPB PRN (15:00)
[2018-03-22 15:35] VITALS: BP 159/93
[2018-03-22] MEDS: ISOSORBIDE DINITRATE 10 MG TABLET PO SCH ×2 (16:00→21:23)
[2018-03-22] MEDS: INSULIN LISPRO 100 UNITS/ML, PEN SQ-INSULIN SCH ×2 (16:05→21:00)
[2018-03-22] MEDS ORDERED: MECLIZINE CHEWABLE 25 MG TAB PO PRN (17:00)
[2018-03-22 18:47] VITALS: BP 106/68
[2018-03-22 18:48] LABS: TROPONIN I 0.018 ng/mL (0.000-0.045)
[2018-03-22] MEDS: CARVEDILOL 12.5 MG TABLET PO SCH (21:23)
[2018-03-22] MEDS: APIXABAN 2.5 MG TABLET PO SCH (21:23)
[2018-03-22] MEDS: ATORVASTATIN 40 MG TABLET PO SCH (21:24)
[2018-03-23 01:07] VITALS: BP 133/72
[2018-03-23 04:51] LABS: BASOPHILS # (AUTO) 0.02 x10^3/uL (0-0.1); BASOPHILS % (AUTO) 0 % (0-1); EOSINOPHILS # (AUTO) 0.08 x10^3/uL (0-0.4); EOSINOPHILS % (AUTO) 2 % (1-7); LYMPHOCYTES # (AUTO) 1.06 x10^3/uL (1-3.4); LYMPHOCYTES % (AUTO) 19 % (22-44); MD NO; MEAN CORPUSCULAR HGB CONC 33.6 g/dL (33.2-36.2); MEAN CORPUSCULAR VOLUME 95.1 fL (81-97); MEAN PLATELET VOLUME 9.1 fL (7.4-10.4); MONOCYTES # (AUTO) 0.55 x10^3/uL (0.2-0.8); MONOCYTES % (AUTO) 10 % (2-9); NEUTROPHILS % (AUTO) 70 % (42-75); PLATELET COUNT 117 x10^3/uL (130-400); RED BLOOD COUNT 3.17 x10^6/uL (4.38-5.82); RED CELL DISTRIBUTION WIDTH 14.4 % (9.4-14.8)
[2018-03-23 05:00] LABS: ANION GAP 6 mmol/L (5-15); CALCIUM 8.3 mg/dL (8.5-10.1); CHLORIDE 104 mmol/L (98-107); CREATININE 1.58 mg/dL (0.7-1.3)
[2018-03-23 06:55] VITALS: BP 138/79
[2018-03-23] MEDS: INSULIN LISPRO 100 UNITS/ML, PEN SQ-INSULIN SCH ×4 (07:00→20:22)
[2018-03-23] MEDS ORDERED: TEMPLATE NON-FORMULARY MED. (Carvedilol** 25 MG) PO SCH (09:00)
[2018-03-23] MEDS ORDERED: LOSARTAN POTASSIUM 20 MG PO SCH (09:00)
[2018-03-23] MEDS: ASPIRIN 81 MG TABLET EC PO SCH (09:04)
[2018-03-23] MEDS: FENOFIBRATE 145 MG TABLET PO SCH (09:04)
[2018-03-23] MEDS: APIXABAN 2.5 MG TABLET PO SCH ×2 (09:04→20:21)
[2018-03-23] MEDS: FLUOXETINE 10 MG CAP PO SCH (09:04)
[2018-03-23] MEDS: LOSARTAN 25MG TABLET PO SCH (09:04)
[2018-03-23] MEDS: CARVEDILOL 12.5 MG TABLET PO SCH ×2 (09:04→20:21)
[2018-03-23] MEDS: SPIRONOLACTONE 50 MG TABLET PO SCH (09:04)
[2018-03-23] MEDS: MULTIVITAMIN 1 TABLET PO SCH (09:04)
[2018-03-23] MEDS: ISOSORBIDE DINITRATE 10 MG TABLET PO SCH ×3 (09:05→22:15)
[2018-03-23] MEDS: TORSEMIDE 20 MG TABLET PO SCH (09:05)
[2018-03-23] MEDS: ALLOPURINOL 100 MG TABLET PO SCH (09:05)
[2018-03-23] MEDS: CHOLECALCIFEROL 5,000u TAB PO SCH (09:05)
[2018-03-23] MEDS ORDERED: ALLO100T30 PO (09:11)
[2018-03-23] MEDS ORDERED: RANI150T23 PO (09:11)
[2018-03-23 10:29] VITALS: BP 108/66
[2018-03-23] MEDS ORDERED: MAGNESIUM SULFATE 4 GM in SODIUM CHLORIDE 0.9% 100 ML IV ONE (11:30)
[2018-03-23 14:15] VITALS: BP 127/73
[2018-03-23] MEDS ORDERED: MAGNESIUM SULFATE PMX 4GM/100M 100 ML IV ONE (15:00)
[2018-03-23 17:40] VITALS: BP 125/66
[2018-03-23 20:11] VITALS: BP 116/66
[2018-03-23] MEDS: ATORVASTATIN 40 MG TABLET PO SCH (20:22)
[2018-03-23] MEDS: FAMOTIDINE 20 MG TABLET PO SCH (20:22)
[2018-03-23] MEDS ORDERED: FAMOTIDINE 20 MG TABLET PO SCH (21:00)
[2018-03-24 02:00] VITALS: BP 123/80
[2018-03-24 05:23] LABS: ANION GAP 7 mmol/L (5-15); CALCIUM 8.7 mg/dL (8.5-10.1); CHLORIDE 104 mmol/L (98-107); CREATININE 1.54 mg/dL (0.7-1.3)
[2018-03-24] MEDS: INSULIN LISPRO 100 UNITS/ML, PEN SQ-INSULIN SCH ×4 (07:00→21:00)
[2018-03-24 07:34] VITALS: BP 127/75
[2018-03-24] MEDS: FENOFIBRATE 145 MG TABLET PO SCH (08:05)
[2018-03-24] MEDS: LOSARTAN 25MG TABLET PO SCH (08:06)
[2018-03-24] MEDS: FLUOXETINE 10 MG CAP PO SCH (08:06)
[2018-03-24] MEDS: APIXABAN 2.5 MG TABLET PO SCH ×2 (08:06→21:13)
[2018-03-24] MEDS: ALLOPURINOL 100 MG TABLET PO SCH (08:06)
[2018-03-24] MEDS: MULTIVITAMIN 1 TABLET PO SCH (08:06)
[2018-03-24] MEDS: TORSEMIDE 20 MG TABLET PO SCH (08:06)
[2018-03-24] MEDS: CARVEDILOL 12.5 MG TABLET PO SCH ×2 (08:06→21:13)
[2018-03-24] MEDS: ISOSORBIDE DINITRATE 10 MG TABLET PO SCH ×3 (08:06→21:12)
[2018-03-24] MEDS: CHOLECALCIFEROL 5,000u TAB PO SCH (08:06)
[2018-03-24] MEDS: SPIRONOLACTONE 50 MG TABLET PO SCH (08:06)
[2018-03-24] MEDS: ASPIRIN 81 MG TABLET EC PO SCH (08:06)
[2018-03-24 12:51] VITALS: BP 111/68
[2018-03-24 18:53] VITALS: BP 104/56
[2018-03-24] MEDS: ATORVASTATIN 40 MG TABLET PO SCH (21:13)
[2018-03-24] MEDS: FAMOTIDINE 20 MG TABLET PO SCH (21:13)
[2018-03-24 23:54] VITALS: BP 103/61
[2018-03-25 00:10] VITALS: BP 103/61
[2018-03-25 05:13] LABS: BASOPHILS # (AUTO) 0.01 x10^3/uL (0-0.1); BASOPHILS % (AUTO) 0 % (0-1); EOSINOPHILS # (AUTO) 0.11 x10^3/uL (0-0.4); EOSINOPHILS % (AUTO) 2 % (1-7); LYMPHOCYTES # (AUTO) 1.23 x10^3/uL (1-3.4); LYMPHOCYTES % (AUTO) 23 % (22-44); MD NO; MEAN CORPUSCULAR HEMOGLOBIN 33.1 pg (27.5-34.5); MEAN CORPUSCULAR HGB CONC 33.9 g/dL (33.2-36.2); MEAN CORPUSCULAR VOLUME 97.7 fL (81-97); MEAN PLATELET VOLUME 9.2 fL (7.4-10.4); MONOCYTES # (AUTO) 0.73 x10^3/uL (0.2-0.8); MONOCYTES % (AUTO) 14 % (2-9); NEUTROPHILS # (AUTO) 3.19 x10^3/uL (1.8-6.8); NEUTROPHILS % (AUTO) 61 % (42-75); PLATELET COUNT 120 x10^3/uL (130-400); RED CELL DISTRIBUTION WIDTH 14.3 % (9.4-14.8)
[2018-03-25 05:21] LABS: CHLORIDE 102 mmol/L (98-107)
[2018-03-25 05:46] LABS: ANION GAP 10 mmol/L (5-15); CALCIUM 8.9 mg/dL (8.5-10.1); CREATININE 1.73 mg/dL (0.7-1.3)
[2018-03-25 08:31] VITALS: BP 116/69
[2018-03-25] MEDS: INSULIN LISPRO 100 UNITS/ML, PEN SQ-INSULIN SCH ×2 (08:37→11:00)
[2018-03-25] MEDS: APIXABAN 2.5 MG TABLET PO SCH (08:48)
[2018-03-25] MEDS: FENOFIBRATE 145 MG TABLET PO SCH (08:48)
[2018-03-25] MEDS: SPIRONOLACTONE 50 MG TABLET PO SCH (08:48)
[2018-03-25] MEDS: LOSARTAN 25MG TABLET PO SCH (08:48)
[2018-03-25] MEDS: CARVEDILOL 12.5 MG TABLET PO SCH (08:48)
[2018-03-25] MEDS: FLUOXETINE 10 MG CAP PO SCH (08:48)
[2018-03-25] MEDS: TORSEMIDE 20 MG TABLET PO SCH (08:48)
[2018-03-25] MEDS: ISOSORBIDE DINITRATE 10 MG TABLET PO SCH (08:49)
[2018-03-25] MEDS: ALLOPURINOL 100 MG TABLET PO SCH (08:49)
[2018-03-25] MEDS: MULTIVITAMIN 1 TABLET PO SCH (08:49)
[2018-03-25] MEDS: ASPIRIN 81 MG TABLET EC PO SCH (08:49)
[2018-03-25] MEDS: CHOLECALCIFEROL 5,000u TAB PO SCH (08:50)
[2018-03-25] MEDS ORDERED: INSULIN GLARGINE HUM REC ANLOG 18 UNIT INJ SCH (09:00)
[2018-03-25] MEDS ORDERED: ISOS30TA8 PO (11:56)
[2018-03-25 13:05] VITALS: BP 131/80
== END 2018-03-25 16:02 | disposition home or self-care (01) | DRG 291 ==
LOC: ED 12:28 → EDIP 12:29 → ED 13:11 → 5SO 15:27
PROVIDERS: ADMIT Internal Medicine; ATTEND Internal Medicine
PROC: 0W993ZZ Drainage of Right Pleural Cavity, Percutaneous Approach (ICD-10-PCS; principal; 2018-03-22)
DX: I13.0 Hypertensive heart and chronic kidney disease with heart failure and stage 1 through stage 4 chronic kidney disease, or unspecified chronic kidney disease (principal); I50.43 Acute on chronic combined systolic (congestive) and diastolic (congestive) heart failure; N17.9 Acute kidney failure, unspecified; Z68.42 Body mass index [BMI] 45.0-49.9, adult; J96.11 Chronic respiratory failure with hypoxia; I50.82 Biventricular heart failure; N18.3 Chronic kidney disease, stage 3 (moderate); I48.91 Unspecified atrial fibrillation; J44.9 Chronic obstructive pulmonary disease, unspecified; D69.6 Thrombocytopenia, unspecified; E11.22 Type 2 diabetes mellitus with diabetic chronic kidney disease; E11.40 Type 2 diabetes mellitus with diabetic neuropathy, unspecified; E66.01 Morbid (severe) obesity due to excess calories; G47.33 Obstructive sleep apnea (adult) (pediatric); I25.10 Atherosclerotic heart disease of native coronary artery without angina pectoris; E78.5 Hyperlipidemia, unspecified; I25.5 Ischemic cardiomyopathy; I27.20 Pulmonary hypertension, unspecified; K21.9 Gastro-esophageal reflux disease without esophagitis; Z79.01 Long term (current) use of anticoagulants; Z82.0 Family history of epilepsy and other diseases of the nervous system; I25.2 Old myocardial infarction; Z82.49 Family history of ischemic heart disease and other diseases of the circulatory system; Z95.1 Presence of aortocoronary bypass graft; Z99.81 Dependence on supplemental oxygen; Z79.899 Other long term (current) drug therapy; Z79.82 Long term (current) use of aspirin; Z79.4 Long term (current) use of insulin
CPT/HCPCS: 32555; 36415; 71045; 80048; 80053; 82962; 83036; 83735; 83880; 84484; 85025; 93005; 93306; 96374; 99285; G0378; J1940; J3490; J1815; J3475

== ENCOUNTER 2018-04-11 10:44 | Inpatient (IN) | payer MEDICARE, OTHER ==
[~2018-04-11] VITALS: Ht 157.5 cm; Wt 99.7 kg
[~2018-04-11 10:44] MED LIST changes: +ISOS30TA8 PO; +LOSA25TA2 PO; +TORS20TA2 PO
[2018-04-11] MEDS ORDERED: CARV25TA12 PO (11:09)
[2018-04-11] MEDS ORDERED: MECL-76 PO (11:11)
[2018-04-11] MEDS ORDERED: FLUO20CA19 PO (11:13)
[2018-04-11 11:43] LABS: BASOPHILS # (AUTO) 0.02 x10^3/uL (0-0.1); BASOPHILS % (AUTO) 0 % (0-1); EOSINOPHILS # (AUTO) 0.04 x10^3/uL (0-0.4); EOSINOPHILS % (AUTO) 1 % (1-7); LYMPHOCYTES # (AUTO) 0.93 x10^3/uL (1-3.4); LYMPHOCYTES % (AUTO) 18 % (22-44); MD NO; MEAN CORPUSCULAR HEMOGLOBIN 31.5 pg (27.5-34.5); MEAN CORPUSCULAR HGB CONC 32.9 g/dL (33.2-36.2); MEAN CORPUSCULAR VOLUME 95.7 fL (81-97); MEAN PLATELET VOLUME 8.3 fL (7.4-10.4); MONOCYTES # (AUTO) 0.57 x10^3/uL (0.2-0.8); MONOCYTES % (AUTO) 11 % (2-9); NEUTROPHILS # (AUTO) 3.61 x10^3/uL (1.8-6.8); NEUTROPHILS % (AUTO) 70 % (42-75); PLATELET COUNT 135 x10^3/uL (130-400); RED BLOOD COUNT 3.47 x10^6/uL (4.38-5.82); RED CELL DISTRIBUTION WIDTH 14.4 % (9.4-14.8)
[2018-04-11 11:55] LABS: ALANINE AMINOTRANSFERASE 19 U/L (12-78); ALBUMIN 3.1 g/dL (3.4-5.0); ANION GAP 6 mmol/L (5-15); CALCIUM 8.1 mg/dL (8.5-10.1); CHLORIDE 107 mmol/L (98-107); CREATININE 1.48 mg/dL (0.7-1.3)
[2018-04-11 11:59] LABS: ALKALINE PHOSPHATASE 49 U/L (45-117); BILIRUBIN,TOTAL 0.3 mg/dL (0.2-1.0); TOTAL PROTEIN 7.1 g/dL (6.4-8.2); TROPONIN I < 0.015 ng/mL (0.000-0.045)
[2018-04-11 12:04] LABS: INTERNATIONAL NORMALIZED RATIO 0.98 (0.93-1.1); PROTHROMBIN TIME 10.1 Seconds (9.6-11.5)
[2018-04-11 14:27] VITALS: BP 146/79
[2018-04-11] MEDS ORDERED: ONDANSETRON ODT 4 MG PO PRN (14:30)
[2018-04-11] MEDS ORDERED: ONDANSETRON 2MG/ML, 2ML IVPush PRN (14:30)
[2018-04-11] MEDS ORDERED: LABETALOL 5MG/ML, 20ML IVPush PRN (14:30)
[2018-04-11] MEDS ORDERED: POLYETHYLENE GLYCOL 17 GM PACKET PO PRN (14:30)
[2018-04-11] MEDS ORDERED: LIDOCAINE-MPF 1%, 5ML ONE (15:10)
[2018-04-11] MEDS ORDERED: ALBUTEROL SULFATE 2.5 MG/3 ML HHN PRN (15:30)
[2018-04-11] MEDS: FERROUS SULFATE 325 MG TABLET PO SCH (16:04)
[2018-04-11] MEDS: ENOXAPARIN 40 MG/0.4 ML SQ SCH (16:04)
[2018-04-11] MEDS ORDERED: FUROSEMIDE 40 MG/4 ML IV SCH (17:00)
[2018-04-11 19:28] VITALS: BP 113/73
[2018-04-11] MEDS: ATORVASTATIN 40 MG TABLET PO SCH (20:58)
[2018-04-12 02:52] VITALS: BP 120/73
[2018-04-12 04:55] LABS: BASOPHILS # (AUTO) 0.03 x10^3/uL (0-0.1); BASOPHILS % (AUTO) 1 % (0-1); EOSINOPHILS # (AUTO) 0.07 x10^3/uL (0-0.4); EOSINOPHILS % (AUTO) 1 % (1-7); LYMPHOCYTES # (AUTO) 1.22 x10^3/uL (1-3.4); LYMPHOCYTES % (AUTO) 24 % (22-44); MD NO; MEAN CORPUSCULAR HEMOGLOBIN 32.8 pg (27.5-34.5); MEAN CORPUSCULAR HGB CONC 34.2 g/dL (33.2-36.2); MEAN CORPUSCULAR VOLUME 95.8 fL (81-97); MEAN PLATELET VOLUME 9.3 fL (7.4-10.4); MONOCYTES % (AUTO) 13 % (2-9); NEUTROPHILS # (AUTO) 3.19 x10^3/uL (1.8-6.8); NEUTROPHILS % (AUTO) 61 % (42-75); PLATELET COUNT 135 x10^3/uL (130-400); RED BLOOD COUNT 3.25 x10^6/uL (4.38-5.82); RED CELL DISTRIBUTION WIDTH 14.4 % (9.4-14.8)
[2018-04-12 05:07] LABS: ANION GAP 7 mmol/L (5-15); CALCIUM 8.2 mg/dL (8.5-10.1); CHLORIDE 105 mmol/L (98-107)
[2018-04-12 05:11] LABS: ALANINE AMINOTRANSFERASE 16 U/L (12-78); ALKALINE PHOSPHATASE 43 U/L (45-117); BILIRUBIN,TOTAL 0.4 mg/dL (0.2-1.0); CREATININE 1.35 mg/dL (0.7-1.3); TOTAL PROTEIN 6.6 g/dL (6.4-8.2)
[2018-04-12 07:25] VITALS: BP 146/73
[2018-04-12] MEDS: INSULIN GLARGINE HUM REC ANLOG 15 UNIT HOMEINJ SCH (09:00)
[2018-04-12] MEDS: FENOFIBRATE 145 MG TABLET PO SCH (09:16)
[2018-04-12] MEDS: FLUOXETINE 10 MG CAP PO SCH (09:16)
[2018-04-12] MEDS: SENNA/DOCUSATE TABLET PO SCH (09:16)
[2018-04-12] MEDS: FERROUS SULFATE 325 MG TABLET PO SCH (09:16)
[2018-04-12] MEDS: MULTIVITAMIN 1 TABLET PO SCH (09:16)
[2018-04-12] MEDS: ALLOPURINOL 100 MG TABLET PO SCH (09:16)
[2018-04-12] MEDS: CARVEDILOL 25 MG TABLET PO SCH (09:17)
[2018-04-12] MEDS: ISOSORBIDE MONONITRATE ER 30 MG TABLET PO SCH (09:17)
[2018-04-12] MEDS: SPIRONOLACTONE 50 MG TABLET PO SCH (09:17)
[2018-04-12] MEDS: CHOLECALCIFEROL 5,000u TAB PO SCH (09:17)
[2018-04-12 12:33] VITALS: BP 114/62
[2018-04-12] MEDS: ENOXAPARIN 40 MG/0.4 ML SQ SCH (13:13)
[2018-04-12] MEDS: FUROSEMIDE 40 MG/4 ML IV SCH (13:19)
[2018-04-12] MEDS: INSULIN LISPRO 100 UNITS/ML, PEN SQ-INSULIN SCH ×2 (17:10→21:00)
[2018-04-12 19:39] VITALS: BP 105/58
[2018-04-12] MEDS: ATORVASTATIN 40 MG TABLET PO SCH (21:04)
[2018-04-13 01:14] VITALS: BP 120/65
[2018-04-13 05:35] LABS: ALBUMIN 2.9 g/dL (3.4-5.0); ANION GAP 8 mmol/L (5-15); CALCIUM 8.3 mg/dL (8.5-10.1); CHLORIDE 105 mmol/L (98-107)
[2018-04-13 05:36] LABS: CREATININE 1.99 mg/dL (0.7-1.3)
[2018-04-13 05:37] LABS: BASOPHILS # (AUTO) 0.02 x10^3/uL (0-0.1); BASOPHILS % (AUTO) 1 % (0-1); EOSINOPHILS # (AUTO) 0.06 x10^3/uL (0-0.4); EOSINOPHILS % (AUTO) 1 % (1-7); LYMPHOCYTES # (AUTO) 1.14 x10^3/uL (1-3.4); LYMPHOCYTES % (AUTO) 24 % (22-44); MD NO; MEAN CORPUSCULAR HEMOGLOBIN 31.9 pg (27.5-34.5); MEAN CORPUSCULAR HGB CONC 33.6 g/dL (33.2-36.2); MEAN CORPUSCULAR VOLUME 95.2 fL (81-97); MEAN PLATELET VOLUME 9.2 fL (7.4-10.4); MONOCYTES # (AUTO) 0.59 x10^3/uL (0.2-0.8); MONOCYTES % (AUTO) 12 % (2-9); NEUTROPHILS # (AUTO) 3.03 x10^3/uL (1.8-6.8); NEUTROPHILS % (AUTO) 63 % (42-75); PLATELET COUNT 123 x10^3/uL (130-400); RED BLOOD COUNT 3.12 x10^6/uL (4.38-5.82); RED CELL DISTRIBUTION WIDTH 14.4 % (9.4-14.8)
[2018-04-13] MEDS: INSULIN LISPRO 100 UNITS/ML, PEN SQ-INSULIN SCH ×4 (07:00→19:49)
[2018-04-13 08:20] VITALS: BP 115/67
[2018-04-13] MEDS: INSULIN GLARGINE HUM REC ANLOG 15 UNIT HOMEINJ SCH (09:00)
[2018-04-13] MEDS: SENNA/DOCUSATE TABLET PO SCH (09:00)
[2018-04-13] MEDS: CHOLECALCIFEROL 5,000u TAB PO SCH (09:14)
[2018-04-13] MEDS: ALLOPURINOL 100 MG TABLET PO SCH (09:14)
[2018-04-13] MEDS: FERROUS SULFATE 325 MG TABLET PO SCH (09:14)
[2018-04-13] MEDS: FLUOXETINE 10 MG CAP PO SCH (09:14)
[2018-04-13] MEDS: SPIRONOLACTONE 50 MG TABLET PO SCH (09:15)
[2018-04-13] MEDS: CARVEDILOL 25 MG TABLET PO SCH (09:15)
[2018-04-13] MEDS: ISOSORBIDE MONONITRATE ER 30 MG TABLET PO SCH (09:15)
[2018-04-13] MEDS: FENOFIBRATE 145 MG TABLET PO SCH (09:21)
[2018-04-13] MEDS: FUROSEMIDE 40 MG/4 ML IV SCH (09:21)
[2018-04-13] MEDS: MULTIVITAMIN 1 TABLET PO SCH (09:21)
[2018-04-13] MEDS ORDERED: ENOXAPARIN 30 MG/0.3 ML SQ SCH (14:00)
[2018-04-13 15:33] VITALS: BP 105/64
[2018-04-13 19:03] VITALS: BP 126/74
[2018-04-13] MEDS: ATORVASTATIN 40 MG TABLET PO SCH (19:49)
[2018-04-14 00:29] VITALS: BP 125/63
[2018-04-14 05:37] LABS: ANION GAP 8 mmol/L (5-15); CALCIUM 8.5 mg/dL (8.5-10.1); CHLORIDE 104 mmol/L (98-107); CREATININE 1.62 mg/dL (0.7-1.3)
[2018-04-14 06:41] VITALS: BP 115/71
[2018-04-14] MEDS: INSULIN LISPRO 100 UNITS/ML, PEN SQ-INSULIN SCH ×2 (07:00→11:59)
[2018-04-14] MEDS ORDERED: TORSEMIDE 20 MG TABLET PO SCH (09:00)
[2018-04-14] MEDS: SENNA/DOCUSATE TABLET PO SCH (09:00)
[2018-04-14] MEDS: INSULIN GLARGINE HUM REC ANLOG 15 UNIT HOMEINJ SCH (09:00)
[2018-04-14] MEDS: FENOFIBRATE 145 MG TABLET PO SCH (09:18)
[2018-04-14] MEDS: FERROUS SULFATE 325 MG TABLET PO SCH (09:18)
[2018-04-14] MEDS: CHOLECALCIFEROL 5,000u TAB PO SCH (09:19)
[2018-04-14] MEDS: ALLOPURINOL 100 MG TABLET PO SCH (09:19)
[2018-04-14] MEDS: FLUOXETINE 10 MG CAP PO SCH (09:19)
[2018-04-14] MEDS: SPIRONOLACTONE 50 MG TABLET PO SCH (09:19)
[2018-04-14] MEDS: MULTIVITAMIN 1 TABLET PO SCH (09:19)
[2018-04-14] MEDS: ISOSORBIDE MONONITRATE ER 30 MG TABLET PO SCH (09:19)
[2018-04-14] MEDS: CARVEDILOL 25 MG TABLET PO SCH (09:19)
[2018-04-14] MEDS ORDERED: MAGNESIUM SULFATE PMX 2GM/50ML 50 ML IV ONE (10:30)
[2018-04-14 13:39] VITALS: BP 106/69
== END 2018-04-14 16:40 | disposition home or self-care (01) | DRG 291 ==
LOC: ED 12:10 → EDIP 14:06 → 4EST 14:22 → DCLOUNGE 04-14 16:22
PROVIDERS: ADMIT Family Medicine; ATTEND Family Medicine
PROC: 0W993ZZ Drainage of Right Pleural Cavity, Percutaneous Approach (ICD-10-PCS; principal; 2018-04-11)
PROC: 5A09357 Assistance with Respiratory Ventilation, Less than 24 Consecutive Hours, Continuous Positive Airway Pressure (ICD-10-PCS; 2018-04-11)
DX: I13.0 Hypertensive heart and chronic kidney disease with heart failure and stage 1 through stage 4 chronic kidney disease, or unspecified chronic kidney disease (principal); J96.21 Acute and chronic respiratory failure with hypoxia; I50.33 Acute on chronic diastolic (congestive) heart failure; J90 Pleural effusion, not elsewhere classified; D68.69 Other thrombophilia; J98.11 Atelectasis; Z68.41 Body mass index [BMI] 40.0-44.9, adult; D64.9 Anemia, unspecified; E11.22 Type 2 diabetes mellitus with diabetic chronic kidney disease; E78.5 Hyperlipidemia, unspecified; G47.33 Obstructive sleep apnea (adult) (pediatric); G89.29 Other chronic pain; H81.09 Meniere's disease, unspecified ear; I25.10 Atherosclerotic heart disease of native coronary artery without angina pectoris; I27.20 Pulmonary hypertension, unspecified; I48.91 Unspecified atrial fibrillation; I25.5 Ischemic cardiomyopathy; J44.9 Chronic obstructive pulmonary disease, unspecified; E66.01 Morbid (severe) obesity due to excess calories; M54.9 Dorsalgia, unspecified; K21.9 Gastro-esophageal reflux disease without esophagitis; M10.9 Gout, unspecified; N18.3 Chronic kidney disease, stage 3 (moderate); Z79.01 Long term (current) use of anticoagulants; I25.2 Old myocardial infarction; Z82.0 Family history of epilepsy and other diseases of the nervous system; Z82.49 Family history of ischemic heart disease and other diseases of the circulatory system; Z95.1 Presence of aortocoronary bypass graft; Z87.891 Personal history of nicotine dependence; Z79.84 Long term (current) use of oral hypoglycemic drugs; Z99.81 Dependence on supplemental oxygen
CPT/HCPCS: 32555; 36415; 71045; 71250; 80048; 80053; 82040; 82945; 82962; 83615; 83735; 83880; 83986; 84100; 84157; 84484; 85025; 85610; 85730; 88112; 88305; 89051; 93005; 99285; G0378; J1650; J1940; J1815; J3475

== ENCOUNTER 2018-07-11 14:40 | Inpatient (IN) | payer MEDICARE, OTHER ==
[~2018-07-11] VITALS: Ht 160 cm; Wt 110.9 kg
[~2018-07-11 14:40] MED LIST changes: +ATOR20TA37 PO; -ATOR20TA9 PO; +FLUO20CA19 PO; +LOSA25TA25 PO; -LOSA25TA6 PO
[2018-07-11 15:06] LABS: BASOPHILS # (AUTO) 0.01 x10^3/uL (0-0.1); BASOPHILS % (AUTO) 0 % (0-1); EOSINOPHILS # (AUTO) 0.04 x10^3/uL (0-0.4); EOSINOPHILS % (AUTO) 1 % (1-7); LYMPHOCYTES # (AUTO) 1.01 x10^3/uL (1-3.4); LYMPHOCYTES % (AUTO) 21 % (22-44); MD NO; MEAN CORPUSCULAR HEMOGLOBIN 31.4 pg (27.5-34.5); MEAN CORPUSCULAR HGB CONC 32.5 g/dL (33.2-36.2); MEAN CORPUSCULAR VOLUME 96.7 fL (81-97); MEAN PLATELET VOLUME 8.8 fL (7.4-10.4); MONOCYTES # (AUTO) 0.59 x10^3/uL (0.2-0.8); MONOCYTES % (AUTO) 12 % (2-9); NEUTROPHILS % (AUTO) 67 % (42-75); PLATELET COUNT 142 x10^3/uL (130-400); RED CELL DISTRIBUTION WIDTH 15.1 % (9.4-14.8)
[2018-07-11 15:18] LABS: ALBUMIN 3.3 g/dL (3.4-5.0); ANION GAP 2 mmol/L (5-15); CALCIUM 8.4 mg/dL (8.5-10.1); CHLORIDE 108 mmol/L (98-107)
[2018-07-11 15:23] LABS: ALANINE AMINOTRANSFERASE 11 U/L (12-78); ALKALINE PHOSPHATASE 46 U/L (45-117); BILIRUBIN,TOTAL 0.5 mg/dL (0.2-1.0); CREATININE 1.32 mg/dL (0.7-1.3); TOTAL PROTEIN 7.3 g/dL (6.4-8.2); TROPONIN I < 0.015 ng/mL (0.000-0.045)
[2018-07-11 15:31] LABS: INTERNATIONAL NORMALIZED RATIO 1.06 (0.93-1.1); PROTHROMBIN TIME 11.2 Seconds (9.6-11.5)
[2018-07-11] MEDS ORDERED: LIDOCAINE-MPF 1%, 5ML ONE (15:48)
[2018-07-11] MEDS ORDERED: ONDANSETRON 2MG/ML, 2ML IVPush PRN (17:00)
[2018-07-11] MEDS ORDERED: NITROGLYCERIN 0.4 MG/SPRAY TL PRN (17:00)
[2018-07-11] MEDS ORDERED: ONDANSETRON ODT 4 MG PO PRN (17:00)
[2018-07-11] MEDS ORDERED: TEMPLATE NON-FORMULARY MED. (Albuterol Sulfate** (Albuterol Sulfate Hfa**) 2 PUFF(S)) INH PRN (17:00)
[2018-07-11] MEDS ORDERED: ALBUTEROL SULFATE 2.5 MG/3 ML NPPB PRN (17:00)
[2018-07-11] MEDS ORDERED: LABETALOL 5MG/ML, 20ML IVPush PRN (17:00)
[2018-07-11 17:13] LABS: FREE T4 (FREE THYROXINE) 1.1 ng/dL (0.76-1.46)
--- NOTE | 2018-07-11 17:20 | NUR ---
DR MANUEL AND HOSPITALIST AWARE OF PNEUMOTHORAX. PT TO JUST BE MONITORED FOR THE TIME BEING. PT STATES, "I FEEL MUCH BETTER." SITTING UP IN BED. NO S/S OF RESP DISTRESS NOTED. TALKING IN FULL SENTENCES. ON 4L O2 VIA NC
--- NOTE | 2018-07-11 17:23 | NUR ---
SBAR REPORT TO MARCIE DELGADO AT THIS TIME.
[2018-07-11] MEDS: FUROSEMIDE 20 MG/2 ML IV SCH (17:56)
[2018-07-11] MEDS ORDERED: [UNRECOGNIZED DRUG - OTHER] PO (18:29)
[2018-07-11] MEDS ORDERED: RANI150T23 PO (18:29)
[2018-07-11] MEDS ORDERED: MECLIZINE PO (18:29)
[2018-07-11] MEDS ORDERED: [UNRECOGNIZED DRUG - OTHER] (18:29)
[2018-07-11 18:50] LABS: RAPID INFLUENZA A Negative (Negative); RAPID INFLUENZA B Negative (Negative)
[2018-07-11 19:43] VITALS: BP 129/81
[2018-07-11] MEDS: INSULIN LISPRO 100 UNITS/ML, PEN SQ-INSULIN SCH (20:45)
[2018-07-11] MEDS: ATORVASTATIN 40 MG TABLET PO SCH (20:45)
[2018-07-12] VITALS (9 sets, daily range): BP systolic 84–149; BP diastolic 52–81
[2018-07-12 06:04] LABS: BASOPHILS # (AUTO) 0.01 x10^3/uL (0-0.1); BASOPHILS % (AUTO) 0 % (0-1); EOSINOPHILS # (AUTO) 0.09 x10^3/uL (0-0.4); EOSINOPHILS % (AUTO) 2 % (1-7); LYMPHOCYTES # (AUTO) 0.81 x10^3/uL (1-3.4); LYMPHOCYTES % (AUTO) 14 % (22-44); MD NO; MEAN CORPUSCULAR HEMOGLOBIN 31.4 pg (27.5-34.5); MEAN CORPUSCULAR HGB CONC 32.8 g/dL (33.2-36.2); MEAN CORPUSCULAR VOLUME 95.8 fL (81-97); MEAN PLATELET VOLUME 8.9 fL (7.4-10.4); MONOCYTES # (AUTO) 0.64 x10^3/uL (0.2-0.8); MONOCYTES % (AUTO) 11 % (2-9); NEUTROPHILS # (AUTO) 4.32 x10^3/uL (1.8-6.8); NEUTROPHILS % (AUTO) 74 % (42-75); PLATELET COUNT 147 x10^3/uL (130-400); RED BLOOD COUNT 3.83 x10^6/uL (4.38-5.82); RED CELL DISTRIBUTION WIDTH 14.8 % (9.4-14.8)
[2018-07-12 06:11] LABS: ALBUMIN 3.4 g/dL (3.4-5.0); ANION GAP 3 mmol/L (5-15); CALCIUM 8.5 mg/dL (8.5-10.1); CHLORIDE 103 mmol/L (98-107)
[2018-07-12 06:24] LABS: ALANINE AMINOTRANSFERASE 11 U/L (12-78); ALKALINE PHOSPHATASE 47 U/L (45-117); CREATININE 1.33 mg/dL (0.7-1.3); TOTAL PROTEIN 7.1 g/dL (6.4-8.2)
[2018-07-12] MEDS: INSULIN LISPRO 100 UNITS/ML, PEN SQ-INSULIN SCH ×4 (07:00→21:31)
[2018-07-12] MEDS ORDERED: MAGNESIUM SULFATE PMX 2GM/50ML 50 ML IV ONE (08:00)
[2018-07-12] MEDS: FUROSEMIDE 20 MG/2 ML IV SCH ×2 (08:10→17:00)
[2018-07-12] MEDS ORDERED: LIDOCAINE-MPF 1%, 5ML ONE (08:12)
[2018-07-12] MEDS ORDERED: FLUMAZENIL 0.1 MG/1 ML, 5ML ONE (08:25)
[2018-07-12] MEDS ORDERED: NALOXONE 1 MG/ML, 2ML ONE (08:25)
[2018-07-12] MEDS ORDERED: FENTANYL PF 100 MCG/2ML ONE (08:25)
[2018-07-12] MEDS ORDERED: MIDAZOLAM 1 MG/ML, 5ML ONE (08:25)
[2018-07-12] MEDS ORDERED: LOSARTAN POTASSIUM 20 MG PO SCH (09:00)
[2018-07-12] MEDS ORDERED: ISOSORBIDE MONONITRATE ER 30 MG TABLET PO SCH (09:00)
[2018-07-12] MEDS ORDERED: CARVEDILOL 25 MG TABLET PO SCH (09:00)
[2018-07-12] MEDS ORDERED: SPIRONOLACTONE 25 MG TABLET PO SCH (09:00)
[2018-07-12] MEDS ORDERED: FLUOXETINE HCL 20 MG CAPSULE PO SCH (09:00)
[2018-07-12] MEDS: ALLOPURINOL 100 MG TABLET PO SCH (09:27)
[2018-07-12] MEDS: CHOLECALCIFEROL 5,000u TAB PO SCH (09:28)
[2018-07-12] MEDS: FENOFIBRATE 145 MG TABLET PO SCH (09:28)
[2018-07-12] MEDS: MULTIVITAMIN 1 TABLET PO SCH (09:29)
[2018-07-12] MEDS: INSULIN GLARGINE 100 UNITS/ML, PEN SQ-INSULIN SCH (10:41)
[2018-07-12] MEDS: HYDROcodone/APAP 5/325 TABLET PO PRN ×2 (15:22→23:23)
[2018-07-12] MEDS ORDERED: SODIUM CHLORIDE 0.9% 250 ML IV SCH (17:00)
[2018-07-12] MEDS ORDERED: SODIUM CHLORIDE 0.9% 250 ML IV ONE (19:00)
[2018-07-12] MEDS: ATORVASTATIN 40 MG TABLET PO SCH (21:31)
[2018-07-13 02:50] VITALS: BP 94/54
[2018-07-13 05:33] LABS: BASOPHILS # (AUTO) 0.01 x10^3/uL (0-0.1); BASOPHILS % (AUTO) 0 % (0-1); EOSINOPHILS # (AUTO) 0.14 x10^3/uL (0-0.4); EOSINOPHILS % (AUTO) 3 % (1-7); LYMPHOCYTES # (AUTO) 0.98 x10^3/uL (1-3.4); LYMPHOCYTES % (AUTO) 17 % (22-44); MD NO; MEAN CORPUSCULAR HEMOGLOBIN 31.8 pg (27.5-34.5); MEAN CORPUSCULAR VOLUME 96.2 fL (81-97); MEAN PLATELET VOLUME 9.4 fL (7.4-10.4); MONOCYTES # (AUTO) 0.73 x10^3/uL (0.2-0.8); MONOCYTES % (AUTO) 13 % (2-9); NEUTROPHILS # (AUTO) 3.82 x10^3/uL (1.8-6.8); NEUTROPHILS % (AUTO) 67 % (42-75); PLATELET COUNT 138 x10^3/uL (130-400); RED BLOOD COUNT 3.47 x10^6/uL (4.38-5.82); RED CELL DISTRIBUTION WIDTH 15.2 % (9.4-14.8)
[2018-07-13 05:57] VITALS: BP 104/65
[2018-07-13] MEDS: HYDROcodone/APAP 5/325 TABLET PO PRN ×2 (06:03→13:06)
[2018-07-13 06:41] LABS: CHLORIDE 101 mmol/L (98-107)
[2018-07-13 07:14] LABS: ALANINE AMINOTRANSFERASE 10 U/L (12-78); ALKALINE PHOSPHATASE 44 U/L (45-117); ANION GAP 8 mmol/L (5-15); BILIRUBIN,TOTAL 0.7 mg/dL (0.2-1.0); CALCIUM 8.2 mg/dL (8.5-10.1); CREATININE 2.53 mg/dL (0.7-1.3); TOTAL PROTEIN 6.7 g/dL (6.4-8.2)
[2018-07-13] MEDS ORDERED: FUROSEMIDE 20 MG/2 ML IV SCH (07:30)
[2018-07-13 07:34] VITALS: BP 96/60
[2018-07-13] MEDS: INSULIN LISPRO 100 UNITS/ML, PEN SQ-INSULIN SCH ×4 (08:10→21:00)
[2018-07-13] MEDS ORDERED: CARVEDILOL 25 MG TABLET PO SCH (09:00)
[2018-07-13] MEDS ORDERED: ISOSORBIDE MONONITRATE ER 30 MG TABLET PO SCH (09:00)
[2018-07-13] MEDS ORDERED: SPIRONOLACTONE 25 MG TABLET PO SCH (09:00)
[2018-07-13] MEDS: MULTIVITAMIN 1 TABLET PO SCH (10:01)
[2018-07-13] MEDS: FENOFIBRATE 145 MG TABLET PO SCH (10:01)
[2018-07-13] MEDS: ALLOPURINOL 100 MG TABLET PO SCH (10:02)
[2018-07-13] MEDS: FLUOXETINE 10 MG CAP PO SCH (10:02)
[2018-07-13] MEDS: CHOLECALCIFEROL 5,000u TAB PO SCH (10:02)
[2018-07-13] MEDS: INSULIN GLARGINE 100 UNITS/ML, PEN SQ-INSULIN SCH (10:03)
[2018-07-13] MEDS ORDERED: SODIUM CHLORIDE 0.9% 1,000 ML IV SCH (12:30)
[2018-07-13 15:44] VITALS: BP 101/65
[2018-07-13] MEDS ORDERED: SODIUM CHLORIDE 0.9% 1,000 ML IV ONE (17:30)
[2018-07-13 18:55] VITALS: BP 103/63
[2018-07-13 19:27] LABS: MICROSCOPIC AUTO
[2018-07-13 19:32] LABS: CULTURE INDICATED? YES
[2018-07-13] MEDS: ATORVASTATIN 40 MG TABLET PO SCH (20:28)
[2018-07-14 01:24] VITALS: BP 107/62
[2018-07-14 05:16] LABS: BASOPHILS # (AUTO) 0.01 x10^3/uL (0-0.1); BASOPHILS % (AUTO) 0 % (0-1); EOSINOPHILS # (AUTO) 0.13 x10^3/uL (0-0.4); EOSINOPHILS % (AUTO) 2 % (1-7); LYMPHOCYTES # (AUTO) 0.82 x10^3/uL (1-3.4); LYMPHOCYTES % (AUTO) 12 % (22-44); MD NO; MEAN CORPUSCULAR HEMOGLOBIN 32.1 pg (27.5-34.5); MEAN CORPUSCULAR HGB CONC 33.6 g/dL (33.2-36.2); MEAN CORPUSCULAR VOLUME 95.7 fL (81-97); MEAN PLATELET VOLUME 9.9 fL (7.4-10.4); MONOCYTES # (AUTO) 0.92 x10^3/uL (0.2-0.8); MONOCYTES % (AUTO) 14 % (2-9); NEUTROPHILS % (AUTO) 72 % (42-75); PLATELET COUNT 119 x10^3/uL (130-400); RED BLOOD COUNT 3.19 x10^6/uL (4.38-5.82); RED CELL DISTRIBUTION WIDTH 15.2 % (9.4-14.8)
[2018-07-14 05:18] LABS: ALANINE AMINOTRANSFERASE 12 U/L (12-78); ALBUMIN 2.6 g/dL (3.4-5.0); ANION GAP 6 mmol/L (5-15); CALCIUM 7.9 mg/dL (8.5-10.1); CHLORIDE 103 mmol/L (98-107)
[2018-07-14 05:20] LABS: ALKALINE PHOSPHATASE 40 U/L (45-117); BILIRUBIN,TOTAL 1.1 mg/dL (0.2-1.0); CREATININE 2.11 mg/dL (0.7-1.3); TOTAL PROTEIN 6.2 g/dL (6.4-8.2)
[2018-07-14] MEDS: INSULIN LISPRO 100 UNITS/ML, PEN SQ-INSULIN SCH ×4 (07:00→20:13)
[2018-07-14 08:04] VITALS: BP 119/61
[2018-07-14] MEDS: ALLOPURINOL 100 MG TABLET PO SCH (08:12)
[2018-07-14] MEDS: FENOFIBRATE 145 MG TABLET PO SCH (08:12)
[2018-07-14] MEDS: MULTIVITAMIN 1 TABLET PO SCH (08:12)
[2018-07-14] MEDS: CHOLECALCIFEROL 5,000u TAB PO SCH (08:12)
[2018-07-14] MEDS: INSULIN GLARGINE 100 UNITS/ML, PEN SQ-INSULIN SCH (08:15)
[2018-07-14] MEDS: FLUOXETINE 10 MG CAP PO SCH (09:57)
[2018-07-14 12:45] VITALS: BP 121/77
[2018-07-14] MEDS ORDERED: SODIUM CHLORIDE 0.9% 500 ML IV SCH (18:00)
[2018-07-14 19:36] VITALS: BP 124/67
[2018-07-14] MEDS: ATORVASTATIN 40 MG TABLET PO SCH (20:05)
[2018-07-14] MEDS: APIXABAN 2.5 MG TABLET PO SCH (20:05)
[2018-07-15 01:15] VITALS: BP 120/76
[2018-07-15 05:31] LABS: BASOPHILS # (AUTO) 0.02 x10^3/uL (0-0.1); BASOPHILS % (AUTO) 0 % (0-1); EOSINOPHILS # (AUTO) 0.11 x10^3/uL (0-0.4); EOSINOPHILS % (AUTO) 2 % (1-7); LYMPHOCYTES # (AUTO) 1.05 x10^3/uL (1-3.4); LYMPHOCYTES % (AUTO) 18 % (22-44); MD NO; MEAN CORPUSCULAR HGB CONC 33.5 g/dL (33.2-36.2); MEAN CORPUSCULAR VOLUME 95.7 fL (81-97); MEAN PLATELET VOLUME 9.9 fL (7.4-10.4); MONOCYTES # (AUTO) 0.94 x10^3/uL (0.2-0.8); MONOCYTES % (AUTO) 16 % (2-9); NEUTROPHILS # (AUTO) 3.63 x10^3/uL (1.8-6.8); NEUTROPHILS % (AUTO) 63 % (42-75); PLATELET COUNT 118 x10^3/uL (130-400); RED BLOOD COUNT 3.27 x10^6/uL (4.38-5.82); RED CELL DISTRIBUTION WIDTH 15.3 % (9.4-14.8)
[2018-07-15 05:36] LABS: CHLORIDE 104 mmol/L (98-107)
[2018-07-15 05:51] LABS: ALANINE AMINOTRANSFERASE 11 U/L (12-78); ALBUMIN 2.7 g/dL (3.4-5.0); ALKALINE PHOSPHATASE 38 U/L (45-117); ANION GAP 5 mmol/L (5-15); BILIRUBIN,TOTAL 0.7 mg/dL (0.2-1.0); CALCIUM 8.3 mg/dL (8.5-10.1); CREATININE 1.77 mg/dL (0.7-1.3); TOTAL PROTEIN 6.4 g/dL (6.4-8.2)
[2018-07-15] MEDS: INSULIN LISPRO 100 UNITS/ML, PEN SQ-INSULIN SCH ×4 (07:00→20:57)
[2018-07-15 07:49] VITALS: BP 130/72
[2018-07-15] MEDS: ALLOPURINOL 100 MG TABLET PO SCH (08:19)
[2018-07-15] MEDS: CHOLECALCIFEROL 5,000u TAB PO SCH (08:19)
[2018-07-15] MEDS: FENOFIBRATE 145 MG TABLET PO SCH (08:19)
[2018-07-15] MEDS: MULTIVITAMIN 1 TABLET PO SCH (08:19)
[2018-07-15] MEDS: APIXABAN 2.5 MG TABLET PO SCH ×2 (08:19→19:38)
[2018-07-15] MEDS: FLUOXETINE 10 MG CAP PO SCH (08:19)
[2018-07-15] MEDS: INSULIN GLARGINE 100 UNITS/ML, PEN SQ-INSULIN SCH (08:19)
[2018-07-15 12:34] VITALS: BP 122/70
[2018-07-15] MEDS: LOSARTAN 25MG TABLET PO SCH (14:49)
[2018-07-15] MEDS: CARVEDILOL 3.125 MG TABLET PO SCH (17:04)
[2018-07-15 19:32] VITALS: BP 118/75
[2018-07-15] MEDS: ATORVASTATIN 40 MG TABLET PO SCH (19:38)
[2018-07-16 01:44] VITALS: BP 120/79
[2018-07-16 05:26] VITALS: BP 110/61
[2018-07-16] MEDS: CARVEDILOL 3.125 MG TABLET PO SCH (05:27)
[2018-07-16 05:30] LABS: BASOPHILS # (AUTO) 0.02 x10^3/uL (0-0.1); BASOPHILS % (AUTO) 0 % (0-1); EOSINOPHILS # (AUTO) 0.19 x10^3/uL (0-0.4); EOSINOPHILS % (AUTO) 4 % (1-7); LYMPHOCYTES # (AUTO) 0.96 x10^3/uL (1-3.4); LYMPHOCYTES % (AUTO) 18 % (22-44); MD NO; MEAN CORPUSCULAR HEMOGLOBIN 31.8 pg (27.5-34.5); MEAN CORPUSCULAR HGB CONC 33.3 g/dL (33.2-36.2); MEAN CORPUSCULAR VOLUME 95.5 fL (81-97); MEAN PLATELET VOLUME 9.6 fL (7.4-10.4); MONOCYTES # (AUTO) 0.83 x10^3/uL (0.2-0.8); MONOCYTES % (AUTO) 16 % (2-9); NEUTROPHILS # (AUTO) 3.35 x10^3/uL (1.8-6.8); NEUTROPHILS % (AUTO) 63 % (42-75); PLATELET COUNT 130 x10^3/uL (130-400); RED BLOOD COUNT 3.32 x10^6/uL (4.38-5.82)
[2018-07-16 05:40] LABS: ALANINE AMINOTRANSFERASE 17 U/L (12-78); ALBUMIN 2.8 g/dL (3.4-5.0); ANION GAP 5 mmol/L (5-15); CALCIUM 8.6 mg/dL (8.5-10.1); CHLORIDE 106 mmol/L (98-107); CREATININE 1.56 mg/dL (0.7-1.3)
[2018-07-16 05:43] LABS: ALKALINE PHOSPHATASE 39 U/L (45-117); BILIRUBIN,TOTAL 0.7 mg/dL (0.2-1.0); TOTAL PROTEIN 6.6 g/dL (6.4-8.2)
[2018-07-16] MEDS: INSULIN LISPRO 100 UNITS/ML, PEN SQ-INSULIN SCH ×2 (07:00→11:44)
[2018-07-16 08:12] VITALS: BP 123/81
[2018-07-16] MEDS: LOSARTAN 25MG TABLET PO SCH (08:20)
[2018-07-16] MEDS: ALLOPURINOL 100 MG TABLET PO SCH (08:20)
[2018-07-16] MEDS: FENOFIBRATE 145 MG TABLET PO SCH (08:20)
[2018-07-16] MEDS: CHOLECALCIFEROL 5,000u TAB PO SCH (08:20)
[2018-07-16] MEDS: FLUOXETINE 10 MG CAP PO SCH (08:20)
[2018-07-16] MEDS: MULTIVITAMIN 1 TABLET PO SCH (08:20)
[2018-07-16] MEDS: APIXABAN 2.5 MG TABLET PO SCH (08:21)
[2018-07-16] MEDS: INSULIN GLARGINE 100 UNITS/ML, PEN SQ-INSULIN SCH (08:24)
[2018-07-16] MEDS ORDERED: SPIRONOLACTONE 25 MG TABLET PO SCH (09:00)
[2018-07-16 13:15] VITALS: BP 114/64
[2018-07-16] MEDS ORDERED: SPIR25TA PO (13:54)
[2018-07-16] MEDS ORDERED: LOSA25TA25 PO (13:54)
[2018-07-16] MEDS ORDERED: CARV12.543 PO (13:54)
[2018-07-16] MEDS ORDERED: CARVEDILOL 12.5 MG TABLET PO SCH (18:00)
== END 2018-07-16 16:56 | disposition home or self-care (01) | DRG 199 ==
LOC: ED 15:31 → EDIP 15:48 → 5SO 17:09
PROVIDERS: ADMIT Hospitalist; ATTEND Hospitalist
PROC: 0W993ZZ Drainage of Right Pleural Cavity, Percutaneous Approach (ICD-10-PCS; 2018-07-11)
PROC: 5A09357 Assistance with Respiratory Ventilation, Less than 24 Consecutive Hours, Continuous Positive Airway Pressure (ICD-10-PCS; 2018-07-12)
PROC: 0W9930Z Drainage of Right Pleural Cavity with Drainage Device, Percutaneous Approach (ICD-10-PCS; 2018-07-12)
PROC: 0T9B70Z Drainage of Bladder with Drainage Device, Via Natural or Artificial Opening (ICD-10-PCS; principal; 2018-07-13)
PROC: 5A09357 Assistance with Respiratory Ventilation, Less than 24 Consecutive Hours, Continuous Positive Airway Pressure (ICD-10-PCS; 2018-07-14)
PROC: 5A09357 Assistance with Respiratory Ventilation, Less than 24 Consecutive Hours, Continuous Positive Airway Pressure (ICD-10-PCS; 2018-07-15)
DX: J95.811 Postprocedural pneumothorax (principal); J96.21 Acute and chronic respiratory failure with hypoxia; N17.0 Acute kidney failure with tubular necrosis; Z68.41 Body mass index [BMI] 40.0-44.9, adult; D68.69 Other thrombophilia; I13.0 Hypertensive heart and chronic kidney disease with heart failure and stage 1 through stage 4 chronic kidney disease, or unspecified chronic kidney disease; I50.42 Chronic combined systolic (congestive) and diastolic (congestive) heart failure; J91.8 Pleural effusion in other conditions classified elsewhere; I47.2 Ventricular tachycardia; E66.01 Morbid (severe) obesity due to excess calories; I25.5 Ischemic cardiomyopathy; Z87.01 Personal history of pneumonia (recurrent); M19.90 Unspecified osteoarthritis, unspecified site; M54.9 Dorsalgia, unspecified; G89.29 Other chronic pain; E11.22 Type 2 diabetes mellitus with diabetic chronic kidney disease; E78.5 Hyperlipidemia, unspecified; G47.33 Obstructive sleep apnea (adult) (pediatric); H81.09 Meniere's disease, unspecified ear; I25.10 Atherosclerotic heart disease of native coronary artery without angina pectoris; I25.2 Old myocardial infarction; I95.9 Hypotension, unspecified; I27.20 Pulmonary hypertension, unspecified; Y83.8 Other surgical procedures as the cause of abnormal reaction of the patient, or of later complication, without mention of misadventure at the time of the procedure; I48.91 Unspecified atrial fibrillation; J43.9 Emphysema, unspecified; K21.9 Gastro-esophageal reflux disease without esophagitis; M10.9 Gout, unspecified; N18.3 Chronic kidney disease, stage 3 (moderate); Z79.01 Long term (current) use of anticoagulants; Z79.899 Other long term (current) drug therapy; Z82.0 Family history of epilepsy and other diseases of the nervous system; Z82.49 Family history of ischemic heart disease and other diseases of the circulatory system; Z87.891 Personal history of nicotine dependence; Z95.1 Presence of aortocoronary bypass graft; Z99.81 Dependence on supplemental oxygen; Y92.89 Other specified places as the place of occurrence of the external cause
CPT/HCPCS: 32551; 32555; 32557; 36415; 71045; 71046; 80053; 81001; 82962; 83605; 83735; 83880; 84100; 84145; 84439; 84443; 84484; 85025; 85379; 85610; 85730; 87040; 87086; 87400; 93005; 96374; 99156; 99157; G0378; J2250; J3010; C1729; C1751; C1769; J1815; J1940; J2310; J3475; J7030; J7040; J7050

== ENCOUNTER 2018-07-31 13:57 | Observation (INO) | payer MEDICARE, OTHER ==
[~2018-07-31] VITALS: Ht 160 cm; Wt 103.9 kg
[~2018-07-31 13:57] MED LIST changes: -GEMF600T4 PO; +GEMF600T8 PO; +MECLIZINE PO; -MULT-224 PO; +MULT-642 PO; +[UNRECOGNIZED DRUG - OTHER]; +[UNRECOGNIZED DRUG - OTHER] PO
--- NOTE | 2018-07-31 14:04 | NUR ---
CONNER RN: PT BIB [facility] FROM HOME FOR PRODUCTIVE COUGH AND INCREASED SOB X3 DAYS, CANNOT CATCH BREATH WITH MOVEMENT. PT REPORTING 4L NC AT ALL TIMES. THOROCENTESIS ON RIGHT SIDE 2 WKS AGO. PT ABLE TO SPEAK IN FULL SENTENCES, A&OX4. CONNECTED TO ALL MONITORING, VSS. EKG DONE, MD AWARE. PA AND MD TO BEDSIDE FOR ASSESSMENT. AWAITING ORDERS. CALL LIGHT WITHIN REACH.
[2018-07-31 14:26] LABS: BASOPHILS # (AUTO) 0.02 x10^3/uL (0-0.1); BASOPHILS % (AUTO) 0 % (0-1); EOSINOPHILS # (AUTO) 0.04 x10^3/uL (0-0.4); EOSINOPHILS % (AUTO) 1 % (1-7); LYMPHOCYTES # (AUTO) 0.64 x10^3/uL (1-3.4); LYMPHOCYTES % (AUTO) 15 % (22-44); MD NO; MEAN CORPUSCULAR HGB CONC 32.3 g/dL (33.2-36.2); MEAN PLATELET VOLUME 8.6 fL (7.4-10.4); MONOCYTES % (AUTO) 9 % (2-9); NEUTROPHILS # (AUTO) 3.28 x10^3/uL (1.8-6.8); NEUTROPHILS % (AUTO) 75 % (42-75); PLATELET COUNT 169 x10^3/uL (130-400); RED BLOOD COUNT 3.55 x10^6/uL (4.38-5.82); RED CELL DISTRIBUTION WIDTH 15.4 % (9.4-14.8)
[2018-07-31 14:28] LABS: INTERNATIONAL NORMALIZED RATIO 1.04 (0.93-1.1)
[2018-07-31] MEDS ORDERED: FUROSEMIDE 40 MG/4 ML IV ONE (14:30)
[2018-07-31] MEDS ORDERED: SODIUM CHLORIDE FLUSH 10ML SYR IVF ONE (14:30)
[2018-07-31 14:31] LABS: ALANINE AMINOTRANSFERASE 16 U/L (12-78); ANION GAP 4 mmol/L (5-15); CALCIUM 8.6 mg/dL (8.5-10.1); CHLORIDE 108 mmol/L (98-107); CREATININE 1.44 mg/dL (0.7-1.3)
[2018-07-31] MEDS ORDERED: FUROSEMIDE 40 MG/4 ML ONE (14:32)
[2018-07-31 14:36] LABS: ALKALINE PHOSPHATASE 48 U/L (45-117); BILIRUBIN,TOTAL 0.3 mg/dL (0.2-1.0); TOTAL PROTEIN 6.9 g/dL (6.4-8.2); TROPONIN I < 0.015 ng/mL (0.000-0.045)
--- NOTE | 2018-07-31 14:37 | NUR ---
Lasix admin. Urinal at bedside. VSS. No other needs.
[2018-07-31] MEDS ORDERED: LIDOCAINE-MPF 1%, 5ML ONE (15:14)
--- NOTE | 2018-07-31 15:22 | NUR ---
Patient to IR.
[2018-07-31] MEDS ORDERED: RANI150T23 PO (15:29)
[2018-07-31] MEDS ORDERED: CARV25TA12 PO (15:29)
[2018-07-31] MEDS ORDERED: INSU100V8 SQ (15:29)
[2018-07-31] MEDS ORDERED: SPIR50TA4 PO (15:29)
--- NOTE | 2018-07-31 15:47 | NUR ---
Patient called to MARCIE Nicole.
[2018-07-31 16:32] VITALS: BP 146/88
[2018-07-31 20:35] VITALS: BP 167/72
[2018-07-31] MEDS ORDERED: hydrALAzine 20 MG/ML, 1ML IVPush PRN (21:00)
[2018-07-31] MEDS ORDERED: GUAIFENESIN/DM 200-20MG, 10ML UDC PO PRN (21:00)
[2018-07-31] MEDS ORDERED: DOCUSATE 100 MG CAPSULE PO PRN (21:00)
[2018-07-31] MEDS ORDERED: ONDANSETRON ODT 4 MG PO PRN (21:00)
[2018-07-31] MEDS ORDERED: ACETAMINOPHEN 325 MG TABLET PO PRN (21:00)
[2018-07-31] MEDS ORDERED: ALBUTEROL SULFATE 2.5 MG/3 ML NPPB PRN ×2 (21:30→23:30)
[2018-07-31] MEDS ORDERED: INSULIN GLARGINE 100 UNITS/ML, PEN SQ-INSULIN SCH (21:30)
[2018-07-31] MEDS ORDERED: ATORVASTATIN 40 MG TABLET PO SCH (21:30)
[2018-08-01 00:20] VITALS: BP 144/78
[2018-08-01 04:53] LABS: ANION GAP 6 mmol/L (5-15); CALCIUM 8.5 mg/dL (8.5-10.1); CHLORIDE 106 mmol/L (98-107); CREATININE 1.36 mg/dL (0.7-1.3)
[2018-08-01 07:34] VITALS: BP 147/83
[2018-08-01] MEDS ORDERED: FAMOTIDINE 20 MG TABLET PO SCH (08:00)
[2018-08-01] MEDS ORDERED: FENOFIBRATE 145 MG TABLET PO SCH (09:00)
[2018-08-01] MEDS ORDERED: MECLIZINE CHEWABLE 25 MG TAB PO SCH (09:00)
[2018-08-01] MEDS ORDERED: SPIRONOLACTONE 50 MG TABLET PO SCH ×2 (09:00)
[2018-08-01] MEDS ORDERED: CARVEDILOL 25 MG TABLET PO SCH (09:00)
[2018-08-01] MEDS ORDERED: MULTIVITAMIN 1 TABLET PO SCH (09:00)
[2018-08-01] MEDS ORDERED: ALLOPURINOL 100 MG TABLET PO SCH (09:00)
[2018-08-01] MEDS ORDERED: TORSEMIDE 20 MG TABLET PO SCH ×3 (09:00)
[2018-08-01] MEDS ORDERED: IRON CARBONYL 45 MG PO SCH (09:00)
[2018-08-01] MEDS ORDERED: APIXABAN 2.5 MG TABLET PO SCH (09:00)
[2018-08-01] MEDS ORDERED: LOSARTAN 25MG TABLET PO SCH (09:00)
[2018-08-01] MEDS ORDERED: CHOLECALCIFEROL 5,000u TAB PO SCH (09:00)
[2018-08-01] MEDS ORDERED: ASPIRIN 81 MG TABLET EC PO SCH (09:00)
[2018-08-01] MEDS ORDERED: FLUOXETINE HCL 20 MG CAPSULE PO SCH (09:00)
[2018-08-01 13:14] VITALS: BP 115/71
[2018-08-01] MEDS ORDERED: SPIR50TA4 PO (13:23)
[2018-08-01] MEDS ORDERED: TORS20TA2 PO (13:23)
[2018-08-02] MEDS ORDERED: SPIRONOLACTONE 50 MG TABLET PO SCH (09:00)
== END 2018-08-01 16:54 | disposition home or self-care (01) ==
LOC: ED 14:20 → EDIP 15:09 → INTOOBSV 15:09 → 5SO 16:16 → DCLOUNGE 08-01 16:40
PROVIDERS: ADMIT Internal Medicine; ATTEND Internal Medicine
DX: J96.21 Acute and chronic respiratory failure with hypoxia (principal); J44.9 Chronic obstructive pulmonary disease, unspecified; I13.0 Hypertensive heart and chronic kidney disease with heart failure and stage 1 through stage 4 chronic kidney disease, or unspecified chronic kidney disease; E11.22 Type 2 diabetes mellitus with diabetic chronic kidney disease; N18.3 Chronic kidney disease, stage 3 (moderate); E78.5 Hyperlipidemia, unspecified; G47.30 Sleep apnea, unspecified; M10.9 Gout, unspecified; M54.9 Dorsalgia, unspecified; G89.29 Other chronic pain; I25.10 Atherosclerotic heart disease of native coronary artery without angina pectoris; I25.2 Old myocardial infarction; I48.91 Unspecified atrial fibrillation; I50.43 Acute on chronic combined systolic (congestive) and diastolic (congestive) heart failure; K21.9 Gastro-esophageal reflux disease without esophagitis; Z95.1 Presence of aortocoronary bypass graft; Z99.81 Dependence on supplemental oxygen
CPT/HCPCS: 32555; 36415; 71045; 71046; 80048; 80053; 82962; 83615; 83880; 83986; 84157; 84484; 84560; 85025; 85610; 87070; 87075; 87205; 89051; 93005; 96372; 96374; 97162; 97165; 99284; G0378; G8978; G8979; G8980; J1815; J1940

== ENCOUNTER 2018-09-10 13:28 | Inpatient (IN) | payer MEDICARE, OTHER ==
[~2018-09-10] VITALS: Ht 160 cm; Wt 104.8 kg
[~2018-09-10 13:28] MED LIST changes: +INSU100V8 SQ; +SPIR50TA4 PO
[2018-09-10] MEDS ORDERED: ALBUTEROL/IPRATROPIUM 2.5MG/0.5MG, 3 ML NPPB ONE (14:00)
[2018-09-10] MEDS ORDERED: SODIUM CHLORIDE FLUSH 10ML SYR IVF ONE (14:00)
[2018-09-10] MEDS ORDERED: ALBUTEROL/IPRATROPIUM 2.5MG/0.5MG, 3 ML ONE (14:06)
[2018-09-10 14:18] LABS: BASOPHILS # (AUTO) 0.01 x10^3/uL (0-0.1); BASOPHILS % (AUTO) 0 % (0-1); EOSINOPHILS # (AUTO) 0.03 x10^3/uL (0-0.4); EOSINOPHILS % (AUTO) 1 % (1-7); LYMPHOCYTES # (AUTO) 0.81 x10^3/uL (1-3.4); LYMPHOCYTES % (AUTO) 17 % (22-44); MD NO; MEAN CORPUSCULAR HEMOGLOBIN 31.4 pg (27.5-34.5); MEAN CORPUSCULAR HGB CONC 33.2 g/dL (33.2-36.2); MEAN CORPUSCULAR VOLUME 94.4 fL (81-97); MEAN PLATELET VOLUME 9.3 fL (7.4-10.4); MONOCYTES # (AUTO) 0.52 x10^3/uL (0.2-0.8); MONOCYTES % (AUTO) 11 % (2-9); NEUTROPHILS # (AUTO) 3.35 x10^3/uL (1.8-6.8); NEUTROPHILS % (AUTO) 71 % (42-75); PLATELET COUNT 154 x10^3/uL (130-400); RED CELL DISTRIBUTION WIDTH 15.9 % (9.4-14.8)
[2018-09-10 14:22] LABS: ALANINE AMINOTRANSFERASE 15 U/L (12-78); ALBUMIN 3.5 g/dL (3.4-5.0); ANION GAP 4 mmol/L (5-15); CALCIUM 8.7 mg/dL (8.5-10.1); CHLORIDE 107 mmol/L (98-107); CREATININE 1.43 mg/dL (0.7-1.3)
[2018-09-10 14:26] LABS: ALKALINE PHOSPHATASE 58 U/L (45-117); BILIRUBIN,TOTAL 0.5 mg/dL (0.2-1.0); TOTAL PROTEIN 7.8 g/dL (6.4-8.2); TROPONIN I < 0.015 ng/mL (0.000-0.045)
[2018-09-10] MEDS ORDERED: SODIUM CHLORIDE FLUSH 10ML SYR IVF PRN (15:30)
[2018-09-10] MEDS ORDERED: morphine SULFATE 10 MG/ML, 1ML IVPush PRN (16:30)
[2018-09-10] MEDS ORDERED: ONDANSETRON 2MG/ML, 2ML IVPush PRN (16:30)
[2018-09-10] MEDS ORDERED: LABETALOL 5MG/ML, 20ML IVPush PRN (16:30)
[2018-09-10] MEDS ORDERED: HEPARIN 5,000 UNITS/ML, 1ML SQ SCH (16:30)
[2018-09-10] MEDS ORDERED: POLYETHYLENE GLYCOL 17 GM PACKET PO PRN (16:30)
[2018-09-10] MEDS ORDERED: INSULIN GLARGINE, 100 UNITS/ML VIAL SQ SCH (16:30)
[2018-09-10] MEDS ORDERED: ALBUTEROL SULFATE 2.5 MG/3 ML NPPB PRN ×2 (16:30→17:30)
[2018-09-10] MEDS ORDERED: ONDANSETRON ODT 4 MG PO PRN (16:30)
[2018-09-10] MEDS ORDERED: ACET325T14 PO (16:49)
--- NOTE | 2018-09-10 19:48 | NUR ---
REPORT TO BRANDY JACK
[2018-09-10] MEDS ORDERED: FAMOTIDINE 20 MG/2 ML IVPush SCH (21:00)
[2018-09-10] MEDS: FAMOTIDINE 20 MG TABLET PO SCH (21:06)
[2018-09-10] MEDS: APIXABAN 2.5 MG TABLET PO SCH (21:06)
[2018-09-10] MEDS: ATORVASTATIN 40 MG TABLET PO SCH (21:06)
[2018-09-10 22:14] LABS: MICROSCOPIC AUTO
[2018-09-10 22:19] LABS: CULTURE INDICATED? NO
[2018-09-10 22:21] VITALS: BP 169/78
[2018-09-11 02:19] VITALS: BP 103/62
[2018-09-11 05:37] LABS: BASOPHILS % (AUTO) 0 % (0-1); EOSINOPHILS % (AUTO) 0 % (1-7); LYMPHOCYTES # (AUTO) 0.62 x10^3/uL (1-3.4); LYMPHOCYTES % (AUTO) 11 % (22-44); MD NO; MEAN CORPUSCULAR HEMOGLOBIN 30.6 pg (27.5-34.5); MEAN CORPUSCULAR HGB CONC 32.8 g/dL (33.2-36.2); MEAN CORPUSCULAR VOLUME 93.1 fL (81-97); MEAN PLATELET VOLUME 9.3 fL (7.4-10.4); MONOCYTES # (AUTO) 0.41 x10^3/uL (0.2-0.8); MONOCYTES % (AUTO) 7 % (2-9); NEUTROPHILS # (AUTO) 4.57 x10^3/uL (1.8-6.8); NEUTROPHILS % (AUTO) 82 % (42-75); PLATELET COUNT 134 x10^3/uL (130-400); RED BLOOD COUNT 3.66 x10^6/uL (4.38-5.82); RED CELL DISTRIBUTION WIDTH 15.4 % (9.4-14.8)
[2018-09-11 05:50] LABS: CHLORIDE 106 mmol/L (98-107)
[2018-09-11 06:09] LABS: ALANINE AMINOTRANSFERASE 14 U/L (12-78); ALKALINE PHOSPHATASE 52 U/L (45-117); ANION GAP 4 mmol/L (5-15); BILIRUBIN,TOTAL 0.5 mg/dL (0.2-1.0); CALCIUM 8.4 mg/dL (8.5-10.1); CREATININE 1.38 mg/dL (0.7-1.3); THYROID STIMULATING HORMONE 0.796 mIU/L (0.358-3.740); TOTAL PROTEIN 6.8 g/dL (6.4-8.2)
[2018-09-11 06:35] VITALS: BP 156/85
[2018-09-11] MEDS: SENNA/DOCUSATE TABLET PO SCH (09:18)
[2018-09-11] MEDS: LOSARTAN 25MG TABLET PO SCH (09:18)
[2018-09-11] MEDS: ALLOPURINOL 100 MG TABLET PO SCH (09:18)
[2018-09-11] MEDS: APIXABAN 2.5 MG TABLET PO SCH ×2 (09:19→21:25)
[2018-09-11] MEDS: CARVEDILOL 25 MG TABLET PO SCH (09:19)
[2018-09-11] MEDS: FLUOXETINE 10 MG CAP PO SCH (09:19)
[2018-09-11] MEDS: MULTIVITAMIN 1 TABLET PO SCH (09:19)
[2018-09-11] MEDS: SPIRONOLACTONE 50 MG TABLET PO SCH (09:19)
[2018-09-11] MEDS: CHOLECALCIFEROL 5,000u TAB PO SCH (09:19)
[2018-09-11] MEDS: FENOFIBRATE 145 MG TABLET PO SCH (09:19)
[2018-09-11] MEDS: ASPIRIN 81 MG TABLET EC PO SCH (09:19)
[2018-09-11] MEDS: FAMOTIDINE 20 MG TABLET PO SCH ×2 (09:19→21:25)
[2018-09-11] MEDS: FUROSEMIDE 20 MG/2 ML IV SCH ×2 (09:20→17:15)
[2018-09-11 12:09] VITALS: BP 147/88
[2018-09-11 18:39] VITALS: BP 115/78
[2018-09-11] MEDS ORDERED: INSULIN GLARGINE 100 UNITS/ML, PEN SQ-INSULIN SCH (21:00)
[2018-09-11] MEDS: ATORVASTATIN 40 MG TABLET PO SCH (21:25)
[2018-09-12 01:03] VITALS: BP 146/86
[2018-09-12 04:59] LABS: BASOPHILS # (AUTO) 0.01 x10^3/uL (0-0.1); BASOPHILS % (AUTO) 0 % (0-1); EOSINOPHILS # (AUTO) 0.27 x10^3/uL (0-0.4); EOSINOPHILS % (AUTO) 4 % (1-7); LYMPHOCYTES % (AUTO) 15 % (22-44); MD NO; MEAN CORPUSCULAR HEMOGLOBIN 31.4 pg (27.5-34.5); MEAN CORPUSCULAR HGB CONC 33.4 g/dL (33.2-36.2); MEAN CORPUSCULAR VOLUME 93.9 fL (81-97); MEAN PLATELET VOLUME 8.9 fL (7.4-10.4); MONOCYTES # (AUTO) 1.04 x10^3/uL (0.2-0.8); MONOCYTES % (AUTO) 13 % (2-9); NEUTROPHILS % (AUTO) 68 % (42-75); PLATELET COUNT 136 x10^3/uL (130-400); RED BLOOD COUNT 3.52 x10^6/uL (4.38-5.82)
[2018-09-12 05:04] LABS: ALANINE AMINOTRANSFERASE 11 U/L (12-78); ALBUMIN 2.9 g/dL (3.4-5.0); ANION GAP 2 mmol/L (5-15); CALCIUM 8.3 mg/dL (8.5-10.1); CHLORIDE 104 mmol/L (98-107)
[2018-09-12 05:07] LABS: ALKALINE PHOSPHATASE 45 U/L (45-117); BILIRUBIN,TOTAL 0.6 mg/dL (0.2-1.0); CREATININE 1.65 mg/dL (0.7-1.3); TOTAL PROTEIN 6.6 g/dL (6.4-8.2)
[2018-09-12 07:26] VITALS: BP 142/82
[2018-09-12] MEDS ORDERED: FUROSEMIDE 20 MG/2 ML IV SCH (07:30)
[2018-09-12] MEDS: FENOFIBRATE 145 MG TABLET PO SCH (09:41)
[2018-09-12] MEDS: CHOLECALCIFEROL 5,000u TAB PO SCH (09:42)
[2018-09-12] MEDS: MULTIVITAMIN 1 TABLET PO SCH (09:42)
[2018-09-12] MEDS: SPIRONOLACTONE 50 MG TABLET PO SCH (09:42)
[2018-09-12] MEDS: ALLOPURINOL 100 MG TABLET PO SCH (09:42)
[2018-09-12] MEDS: ASPIRIN 81 MG TABLET EC PO SCH (09:42)
[2018-09-12] MEDS: LOSARTAN 25MG TABLET PO SCH (09:43)
[2018-09-12] MEDS: FAMOTIDINE 20 MG TABLET PO SCH (09:43)
[2018-09-12] MEDS: CARVEDILOL 25 MG TABLET PO SCH (09:43)
[2018-09-12] MEDS: APIXABAN 2.5 MG TABLET PO SCH (09:43)
[2018-09-12] MEDS: FLUOXETINE 10 MG CAP PO SCH (09:44)
[2018-09-12] MEDS: SENNA/DOCUSATE TABLET PO SCH (09:49)
[2018-09-12] MEDS ORDERED: FUROSEMIDE 20 MG/2 ML IV ONE (11:00)
== END 2018-09-12 12:30 | disposition home or self-care (01) | DRG 186 ==
LOC: ED 13:43 → EDIP 15:01 → 5SO 20:44 → DCLOUNGE 09-12 12:10
PROVIDERS: ADMIT Hospitalist; ATTEND Hospitalist
PROC: 0W993ZZ Drainage of Right Pleural Cavity, Percutaneous Approach (ICD-10-PCS; principal; 2018-09-11)
PROC: 5A09357 Assistance with Respiratory Ventilation, Less than 24 Consecutive Hours, Continuous Positive Airway Pressure (ICD-10-PCS; 2018-09-11)
DX: J90 Pleural effusion, not elsewhere classified (principal); J96.21 Acute and chronic respiratory failure with hypoxia; I13.0 Hypertensive heart and chronic kidney disease with heart failure and stage 1 through stage 4 chronic kidney disease, or unspecified chronic kidney disease; I50.42 Chronic combined systolic (congestive) and diastolic (congestive) heart failure; D68.59 Other primary thrombophilia; Z68.41 Body mass index [BMI] 40.0-44.9, adult; I25.5 Ischemic cardiomyopathy; D64.9 Anemia, unspecified; E11.21 Type 2 diabetes mellitus with diabetic nephropathy; E78.5 Hyperlipidemia, unspecified; E11.22 Type 2 diabetes mellitus with diabetic chronic kidney disease; G47.33 Obstructive sleep apnea (adult) (pediatric); G89.29 Other chronic pain; H81.09 Meniere's disease, unspecified ear; I25.10 Atherosclerotic heart disease of native coronary artery without angina pectoris; I27.20 Pulmonary hypertension, unspecified; I48.91 Unspecified atrial fibrillation; J44.9 Chronic obstructive pulmonary disease, unspecified; K21.9 Gastro-esophageal reflux disease without esophagitis; M10.9 Gout, unspecified; N18.3 Chronic kidney disease, stage 3 (moderate); T50.2X5A Adverse effect of carbonic-anhydrase inhibitors, benzothiadiazides and other diuretics, initial encounter; I25.2 Old myocardial infarction; Z79.01 Long term (current) use of anticoagulants; Z82.0 Family history of epilepsy and other diseases of the nervous system; Z82.49 Family history of ischemic heart disease and other diseases of the circulatory system; Z87.891 Personal history of nicotine dependence; Z95.1 Presence of aortocoronary bypass graft; Z99.81 Dependence on supplemental oxygen
CPT/HCPCS: 32555; 36415; 71045; 80053; 81001; 82962; 83605; 83735; 83880; 84100; 84439; 84443; 84484; 85025; 87040; 93005; 94640; G0378; J1815; J1940; J7512

== ENCOUNTER 2019-01-22 13:58 | Inpatient (IN) | payer MEDICARE, OTHER ==
[~2019-01-22] VITALS: Ht 157.5 cm; Wt 108.7 kg
[2019-01-26 06:50] VITALS: BP 114/53
== END 2019-01-26 14:35 | disposition home or self-care (01) | DRG 291 ==
LOC: ED 14:18 → EDIP 15:01 → UNDOADMIN 15:19 → EDIP 15:19 → 5SO 17:55 → DCLOUNGE 01-26 14:28
PROVIDERS: ADMIT Internal Medicine; ATTEND Internal Medicine
PROC: 0W993ZZ Drainage of Right Pleural Cavity, Percutaneous Approach (ICD-10-PCS; principal; 2019-01-24)
PROC: 5A09357 Assistance with Respiratory Ventilation, Less than 24 Consecutive Hours, Continuous Positive Airway Pressure (ICD-10-PCS; 2019-01-24)
PROC: 5A09357 Assistance with Respiratory Ventilation, Less than 24 Consecutive Hours, Continuous Positive Airway Pressure (ICD-10-PCS; 2019-01-25)
PROC: 5A09357 Assistance with Respiratory Ventilation, Less than 24 Consecutive Hours, Continuous Positive Airway Pressure (ICD-10-PCS; 2019-01-26)
DX: I13.0 Hypertensive heart and chronic kidney disease with heart failure and stage 1 through stage 4 chronic kidney disease, or unspecified chronic kidney disease (principal); I50.43 Acute on chronic combined systolic (congestive) and diastolic (congestive) heart failure; J96.21 Acute and chronic respiratory failure with hypoxia; N17.9 Acute kidney failure, unspecified; D68.69 Other thrombophilia; Z68.41 Body mass index [BMI] 40.0-44.9, adult; N18.4 Chronic kidney disease, stage 4 (severe); I48.91 Unspecified atrial fibrillation; I27.20 Pulmonary hypertension, unspecified; M10.9 Gout, unspecified; K21.9 Gastro-esophageal reflux disease without esophagitis; J43.9 Emphysema, unspecified; I25.5 Ischemic cardiomyopathy; H81.09 Meniere's disease, unspecified ear; E66.01 Morbid (severe) obesity due to excess calories; E11.22 Type 2 diabetes mellitus with diabetic chronic kidney disease; E11.21 Type 2 diabetes mellitus with diabetic nephropathy; D50.9 Iron deficiency anemia, unspecified; E78.5 Hyperlipidemia, unspecified; G47.33 Obstructive sleep apnea (adult) (pediatric); I25.10 Atherosclerotic heart disease of native coronary artery without angina pectoris; Z95.1 Presence of aortocoronary bypass graft; Z87.891 Personal history of nicotine dependence; Z82.49 Family history of ischemic heart disease and other diseases of the circulatory system; Z82.0 Family history of epilepsy and other diseases of the nervous system; Z79.4 Long term (current) use of insulin; I25.2 Old myocardial infarction
CPT/HCPCS: 32555; 36415; 71045; 74018; 76705; 80048; 80053; 82728; 82962; 83036; 83540; 83550; 83880; 84145; 84443; 84484; 85025; 93005; 93306; 94640; G0378; J1940; J7613; J1815

== ENCOUNTER 2019-06-25 22:12 | Emergency (ER) | payer MEDICARE, OTHER ==
[~2019-06-25] VITALS: Ht 157.5 cm; Wt 116.0 kg
[~2019-06-25 22:12] MED LIST changes: +FENO48TA17 PO; -FENO48TA5 PO; +FURO20TA3 PO; +HYDR-3341 PO; +ISOS10TA2 PO; -NITR0.4T SL; +NITR0.4T41 SL; +RANI-467 PO; -RANI150T23 PO
[2019-06-25] MEDS ORDERED: SODIUM CHLORIDE FLUSH 10ML SYR IVF ONE (22:30)
[2019-06-25 22:38] LABS: BASOPHILS # (AUTO) 0.02 x10^3/uL (0-0.1); BASOPHILS % (AUTO) 0 % (0-1); EOSINOPHILS # (AUTO) 0.03 x10^3/uL (0-0.4); EOSINOPHILS % (AUTO) 1 % (1-7); LYMPHOCYTES # (AUTO) 1.06 x10^3/uL (1-3.4); LYMPHOCYTES % (AUTO) 23 % (22-44); MD NO; MEAN CORPUSCULAR HEMOGLOBIN 32.6 pg (27.5-34.5); MEAN CORPUSCULAR HGB CONC 33.2 g/dL (33.2-36.2); MEAN CORPUSCULAR VOLUME 98.1 fL (81-97); MEAN PLATELET VOLUME 9.1 fL (7.4-10.4); MONOCYTES # (AUTO) 0.61 x10^3/uL (0.2-0.8); MONOCYTES % (AUTO) 13 % (2-9); NEUTROPHILS # (AUTO) 2.98 x10^3/uL (1.8-6.8); NEUTROPHILS % (AUTO) 63 % (42-75); PLATELET COUNT 141 x10^3/uL (130-400); RED BLOOD COUNT 3.47 x10^6/uL (4.38-5.82); RED CELL DISTRIBUTION WIDTH 14.8 % (9.4-14.8)
[2019-06-25 22:51] LABS: ALANINE AMINOTRANSFERASE 19 U/L (12-78); ALBUMIN 3.1 g/dL (3.4-5.0); ANION GAP 5 mmol/L (5-15); CALCIUM 8.3 mg/dL (8.5-10.1); CHLORIDE 109 mmol/L (98-107); CREATININE 1.83 mg/dL (0.7-1.3)
[2019-06-25 22:55] LABS: ALKALINE PHOSPHATASE 26 U/L (45-117); BILIRUBIN,TOTAL 0.3 mg/dL (0.2-1.0); TOTAL PROTEIN 7.5 g/dL (6.4-8.2); TROPONIN I 0.019 ng/mL (0.000-0.045)
[2019-06-25] MEDS ORDERED: FUROSEMIDE 40 MG/4 ML ONE (23:28)
[2019-06-25] MEDS ORDERED: FUROSEMIDE 20 MG/2 ML IV ONE (23:30)
[2019-06-25 23:31] VITALS: BP 170/89
== END 2019-06-26 00:23 | disposition home or self-care (01) ==
LOC: ED 06-26 00:01
DX: R06.00 Dyspnea, unspecified (principal); E11.9 Type 2 diabetes mellitus without complications; I11.0 Hypertensive heart disease with heart failure; I25.2 Old myocardial infarction; J44.0 Chronic obstructive pulmonary disease with (acute) lower respiratory infection; E78.5 Hyperlipidemia, unspecified; M10.9 Gout, unspecified; Z87.891 Personal history of nicotine dependence
CPT/HCPCS: 36415; 71045; 80053; 83880; 84484; 85025; 93005; 96374; 99284; J1940

== ENCOUNTER 2019-07-11 17:30 | Inpatient (IN) | payer MEDICARE, OTHER ==
[~2019-07-11] VITALS: Ht 157.5 cm; Wt 115.3 kg
[~2019-07-11 17:30] MED LIST changes: +FENO48TA10 PO; -FENO48TA17 PO; +MECL-101 PO; -MECL25TA4 PO
--- NOTE | 2019-07-11 17:55 | NUR ---
THIS IS A 74 YO M W/ C/O WORSENING SOB W/ EXERTION. WAS SEEN ON 06/25/19 AND D/C W/ LASIX. PATIENT STATES HE FELT BETTER FOR A FEW DAYS AND THEN SYMPTOMS RETURNED. BREATHING IS EVEN AND UNLABORED. VS STABLE. PATIENT IS IN NO ACUTE DISTRESS. PATIENT DENIES FURTHER NEEDS AT THIS TIME.
--- NOTE | 2019-07-11 18:00 | NUR ---
DR. BHAKTA AT BEDSIDE.
--- NOTE | 2019-07-11 18:07 | NUR ---
PATIENT STATES HE FELL ON TUESDAY AND LOST CONCIOUSNESS FOR A FEW SECONDS. WILL REPORT TO PROVIDER.
[2019-07-11] MEDS ORDERED: LIDOCAINE 1%, 10ML ONE ×2 (18:21→18:53)
[2019-07-11] MEDS ORDERED: SODIUM CHLORIDE FLUSH 10ML SYR IVF ONE (18:30)
[2019-07-11 18:33] LABS: BASOPHILS # (AUTO) 0.01 x10^3/uL (0-0.1); BASOPHILS % (AUTO) 0 % (0-1); EOSINOPHILS # (AUTO) 0.04 x10^3/uL (0-0.4); EOSINOPHILS % (AUTO) 1 % (1-7); LYMPHOCYTES % (AUTO) 18 % (22-44); MD NO; MEAN CORPUSCULAR HEMOGLOBIN 32.2 pg (27.5-34.5); MEAN CORPUSCULAR HGB CONC 33.3 g/dL (33.2-36.2); MEAN CORPUSCULAR VOLUME 96.7 fL (81-97); MONOCYTES # (AUTO) 0.41 x10^3/uL (0.2-0.8); MONOCYTES % (AUTO) 9 % (2-9); NEUTROPHILS % (AUTO) 72 % (42-75); PLATELET COUNT 156 x10^3/uL (130-400); RED BLOOD COUNT 3.32 x10^6/uL (4.38-5.82); RED CELL DISTRIBUTION WIDTH 15.1 % (9.4-14.8)
[2019-07-11 18:41] LABS: INTERNATIONAL NORMALIZED RATIO 0.95 (0.93-1.1)
[2019-07-11 18:45] LABS: ALANINE AMINOTRANSFERASE 18 U/L (12-78); ANION GAP 7 mmol/L (5-15); CHLORIDE 110 mmol/L (98-107); CREATININE 1.73 mg/dL (0.7-1.3)
[2019-07-11 18:49] LABS: ALKALINE PHOSPHATASE 30 U/L (45-117); BILIRUBIN,TOTAL 0.4 mg/dL (0.2-1.0); TOTAL PROTEIN 6.8 g/dL (6.4-8.2); TROPONIN I < 0.015 ng/mL (0.000-0.045)
--- NOTE | 2019-07-11 18:56 | NUR ---
PATIENT TO CT.
--- NOTE | 2019-07-11 19:00 | NUR ---
PT TO IR AT THIS TIME.
[2019-07-11] MEDS ORDERED: MECL-101 PO (19:06)
[2019-07-11] MEDS ORDERED: NITR12SP2 TL (19:07)
[2019-07-11] MEDS ORDERED: INSU100I13 SQ-INSULIN (19:08)
--- NOTE | 2019-07-11 19:33 | NUR ---
REPORT FROM NESTOR JACK.
--- NOTE | 2019-07-11 19:45 | NUR ---
BACK IN ROOM FROM [facility]. NO COMPLAINTS AT THIS TIME. DENIES CHANGE IN SOB. VSS. /CALL SLOAN AT BEDSIDE.
--- NOTE | 2019-07-11 21:06 | NUR ---
PT TO BE ADMITTED.
[2019-07-11] MEDS ORDERED: FUROSEMIDE 40 MG/4 ML IV ONE (21:30)
[2019-07-11] MEDS ORDERED: FUROSEMIDE 40 MG/4 ML ONE (21:54)
[2019-07-11] MEDS ORDERED: MECLIZINE CHEWABLE 25 MG TAB ONE (21:55)
[2019-07-11] MEDS ORDERED: APIXABAN 5 MG TABLET ONE (21:55)
[2019-07-11] MEDS ORDERED: CARVEDILOL 3.125 MG TABLET ONE (21:55)
[2019-07-11] MEDS: IRON CARBONYL 45 MG PO SCH (22:00)
[2019-07-11] MEDS ORDERED: ACETAMINOPHEN 325 MG TABLET PO PRN (22:00)
[2019-07-11] MEDS ORDERED: ALBUTEROL SULFATE 2.5 MG/3 ML NPPB PRN (22:00)
[2019-07-11] MEDS: SODIUM CHLORIDE FLUSH 10ML SYR IVF SCH (22:00)
[2019-07-11] MEDS ORDERED: NITROGLYCERIN 0.4 MG BOTTLE (25 TABS) SL PRN (22:00)
[2019-07-11] MEDS ORDERED: ONDANSETRON ODT 4 MG PO PRN (22:00)
[2019-07-11] MEDS: APIXABAN 2.5 MG TABLET PO SCH (22:00)
[2019-07-11] MEDS ORDERED: POLYETHYLENE GLYCOL 17 GM PACKET PO PRN (22:00)
[2019-07-11] MEDS ORDERED: BISACODYL 10 MG SUPP PR PRN (22:00)
[2019-07-11] MEDS: MECLIZINE 25 MG TABLET PO SCH (22:00)
--- NOTE | 2019-07-11 22:05 | NUR ---
FLOOR MEDS PER MAR, REST REQUESTED FROM PHARM.
--- NOTE | 2019-07-11 22:08 | NUR ---
ADM FOR CHF EXACERBATION/PLEURAL EFFUSION 1200 CC OUT.
[2019-07-11] MEDS: CARVEDILOL 25 MG TABLET PO SCH (22:25)
[2019-07-11] MEDS: ISOSORBIDE DINITRATE 10 MG TABLET PO SCH (22:25)
[2019-07-11] MEDS: FAMOTIDINE 20 MG TABLET PO SCH (22:25)
[2019-07-11] MEDS: ATORVASTATIN 40 MG TABLET PO SCH (22:25)
--- NOTE | 2019-07-11 22:26 | NUR ---
REPORT TO SHELLI JACK. FLOOR MEDS PER SEP.
[2019-07-11 22:40] VITALS: BP 110/67
[2019-07-12 02:43] VITALS: BP 110/67
[2019-07-12 03:30] VITALS: BP 114/70
[2019-07-12 05:54] LABS: BASOPHILS % (AUTO) 0 % (0-1); EOSINOPHILS # (AUTO) 0.03 x10^3/uL (0-0.4); EOSINOPHILS % (AUTO) 1 % (1-7); LYMPHOCYTES # (AUTO) 0.85 x10^3/uL (1-3.4); LYMPHOCYTES % (AUTO) 17 % (22-44); MD NO; MEAN CORPUSCULAR HEMOGLOBIN 31.9 pg (27.5-34.5); MEAN CORPUSCULAR VOLUME 96.6 fL (81-97); MEAN PLATELET VOLUME 9.6 fL (7.4-10.4); MONOCYTES # (AUTO) 0.59 x10^3/uL (0.2-0.8); MONOCYTES % (AUTO) 12 % (2-9); NEUTROPHILS # (AUTO) 3.41 x10^3/uL (1.8-6.8); NEUTROPHILS % (AUTO) 70 % (42-75); PLATELET COUNT 144 x10^3/uL (130-400); RED BLOOD COUNT 3.08 x10^6/uL (4.38-5.82)
[2019-07-12 06:01] LABS: ALANINE AMINOTRANSFERASE 17 U/L (12-78); ALBUMIN 2.8 g/dL (3.4-5.0); ANION GAP 5 mmol/L (5-15); CALCIUM 8.1 mg/dL (8.5-10.1); CHLORIDE 110 mmol/L (98-107); CREATININE 1.85 mg/dL (0.7-1.3)
[2019-07-12 06:04] LABS: ALKALINE PHOSPHATASE 27 U/L (45-117); BILIRUBIN,TOTAL 0.4 mg/dL (0.2-1.0); TOTAL PROTEIN 6.3 g/dL (6.4-8.2)
[2019-07-12 07:55] VITALS: BP 112/75
[2019-07-12] MEDS: FAMOTIDINE 20 MG TABLET PO SCH (09:04)
[2019-07-12] MEDS: MECLIZINE 25 MG TABLET PO SCH ×2 (09:05→21:38)
[2019-07-12] MEDS: SPIRONOLACTONE 50 MG TABLET PO SCH (09:05)
[2019-07-12] MEDS: ISOSORBIDE DINITRATE 10 MG TABLET PO SCH ×3 (09:05→21:37)
[2019-07-12] MEDS: FENOFIBRATE 145 MG TABLET PO SCH (09:05)
[2019-07-12] MEDS: SENNA/DOCUSATE TABLET PO SCH (09:06)
[2019-07-12] MEDS: APIXABAN 2.5 MG TABLET PO SCH ×2 (09:06→21:37)
[2019-07-12] MEDS: MULTIVITAMIN 1 TABLET PO SCH (09:07)
[2019-07-12] MEDS: CARVEDILOL 25 MG TABLET PO SCH ×2 (09:07→21:38)
[2019-07-12] MEDS: ALLOPURINOL 100 MG TABLET PO SCH (09:07)
[2019-07-12] MEDS: CHOLECALCIFEROL 5,000u TAB PO SCH (09:07)
[2019-07-12] MEDS: ASPIRIN 81 MG TABLET EC PO SCH (09:07)
[2019-07-12] MEDS: FLUOXETINE 10 MG CAP PO SCH (09:07)
[2019-07-12] MEDS: SODIUM CHLORIDE FLUSH 10ML SYR IVF SCH ×2 (09:08→21:38)
[2019-07-12] MEDS: FUROSEMIDE 40 MG/4 ML IV SCH ×2 (09:09→16:47)
[2019-07-12 13:26] VITALS: BP 102/65
[2019-07-12] MEDS: INSULIN LISPRO 100 UNITS/ML, PEN SQ-INSULIN SCH ×2 (16:00→21:49)
[2019-07-12 20:10] VITALS: BP 126/77
[2019-07-12] MEDS: ATORVASTATIN 40 MG TABLET PO SCH (21:37)
[2019-07-12] MEDS: INSULIN GLARGINE 100 UNITS/ML, PEN SQ-INSULIN SCH (21:39)
[2019-07-13 01:29] VITALS: BP 126/74
[2019-07-13 07:50] VITALS: BP 119/71
[2019-07-13] MEDS: FUROSEMIDE 40 MG/4 ML IV SCH ×2 (08:19→17:32)
[2019-07-13] MEDS: INSULIN LISPRO 100 UNITS/ML, PEN SQ-INSULIN SCH ×4 (08:47→21:07)
[2019-07-13] MEDS: FLUOXETINE 10 MG CAP PO SCH (08:47)
[2019-07-13] MEDS: MULTIVITAMIN 1 TABLET PO SCH (08:48)
[2019-07-13] MEDS: CHOLECALCIFEROL 5,000u TAB PO SCH (08:48)
[2019-07-13] MEDS: MECLIZINE 25 MG TABLET PO SCH ×2 (08:48→21:04)
[2019-07-13] MEDS: FAMOTIDINE 20 MG TABLET PO SCH (08:48)
[2019-07-13] MEDS: ISOSORBIDE DINITRATE 10 MG TABLET PO SCH ×3 (08:48→21:04)
[2019-07-13] MEDS: FENOFIBRATE 145 MG TABLET PO SCH (08:48)
[2019-07-13] MEDS: ASPIRIN 81 MG TABLET EC PO SCH (08:48)
[2019-07-13] MEDS: CARVEDILOL 25 MG TABLET PO SCH ×2 (08:48→21:05)
[2019-07-13] MEDS: APIXABAN 2.5 MG TABLET PO SCH (08:48)
[2019-07-13] MEDS: ALLOPURINOL 100 MG TABLET PO SCH (08:49)
[2019-07-13] MEDS: SPIRONOLACTONE 50 MG TABLET PO SCH (08:49)
[2019-07-13] MEDS: SODIUM CHLORIDE FLUSH 10ML SYR IVF SCH ×2 (08:49→21:07)
[2019-07-13] MEDS: SENNA/DOCUSATE TABLET PO SCH (09:00)
[2019-07-13 09:25] LABS: ANION GAP 7 mmol/L (5-15); CALCIUM 8.6 mg/dL (8.5-10.1); CHLORIDE 106 mmol/L (98-107)
[2019-07-13 13:54] VITALS: BP 123/58
[2019-07-13 19:27] VITALS: BP 119/74
[2019-07-13] MEDS: ATORVASTATIN 40 MG TABLET PO SCH (21:04)
[2019-07-13] MEDS: APIXABAN 5 MG TABLET PO SCH (21:05)
[2019-07-13] MEDS: INSULIN GLARGINE 100 UNITS/ML, PEN SQ-INSULIN SCH (21:07)
[2019-07-13] MEDS: IRON CARBONYL 45 MG PO SCH (21:08)
[2019-07-14 01:45] VITALS: BP 112/77
[2019-07-14] MEDS: CEFTRIAXONE PMX 2GM/50ML 50 ML IV SCH (06:44)
[2019-07-14] MEDS: INSULIN LISPRO 100 UNITS/ML, PEN SQ-INSULIN SCH ×4 (07:00→22:47)
[2019-07-14 07:17] LABS: ANION GAP 7 mmol/L (5-15); CALCIUM 8.9 mg/dL (8.5-10.1); CHLORIDE 104 mmol/L (98-107)
[2019-07-14 08:45] VITALS: BP 122/61
[2019-07-14] MEDS: FUROSEMIDE 40 MG/4 ML IV SCH ×2 (08:53→17:00)
[2019-07-14] MEDS: SODIUM CHLORIDE FLUSH 10ML SYR IVF SCH ×2 (08:58→22:51)
[2019-07-14] MEDS: SENNA/DOCUSATE TABLET PO SCH (09:00)
[2019-07-14] MEDS: APIXABAN 5 MG TABLET PO SCH ×2 (09:34→22:40)
[2019-07-14] MEDS: FLUOXETINE 10 MG CAP PO SCH (09:37)
[2019-07-14] MEDS: MECLIZINE 25 MG TABLET PO SCH ×2 (09:37→22:40)
[2019-07-14] MEDS: DOXYCYCLINE 100MG TABLET PO SCH ×2 (09:37→22:40)
[2019-07-14] MEDS: ALLOPURINOL 100 MG TABLET PO SCH (09:37)
[2019-07-14] MEDS: MULTIVITAMIN 1 TABLET PO SCH (09:37)
[2019-07-14] MEDS: FENOFIBRATE 145 MG TABLET PO SCH (09:37)
[2019-07-14] MEDS: ASPIRIN 81 MG TABLET EC PO SCH (09:37)
[2019-07-14] MEDS: FAMOTIDINE 20 MG TABLET PO SCH (09:38)
[2019-07-14] MEDS: CHOLECALCIFEROL 5,000u TAB PO SCH (09:38)
[2019-07-14] MEDS: CARVEDILOL 25 MG TABLET PO SCH ×2 (09:57→22:51)
[2019-07-14] MEDS: SPIRONOLACTONE 50 MG TABLET PO SCH (09:57)
[2019-07-14] MEDS: ISOSORBIDE DINITRATE 10 MG TABLET PO SCH ×3 (09:59→22:40)
[2019-07-14 13:49] VITALS: BP 124/74
[2019-07-14 19:58] VITALS: BP 138/74
[2019-07-14] MEDS: ATORVASTATIN 40 MG TABLET PO SCH (22:40)
[2019-07-14] MEDS: INSULIN GLARGINE 100 UNITS/ML, PEN SQ-INSULIN SCH (22:51)
[2019-07-15 02:00] VITALS: BP 125/79
[2019-07-15 05:22] LABS: CHLORIDE 102 mmol/L (98-107)
[2019-07-15 05:31] LABS: ALANINE AMINOTRANSFERASE 10 U/L (12-78); ALBUMIN 3.1 g/dL (3.4-5.0); ALKALINE PHOSPHATASE 27 U/L (45-117); ANION GAP 8 mmol/L (5-15); BILIRUBIN,TOTAL 0.4 mg/dL (0.2-1.0); CREATININE 2.49 mg/dL (0.7-1.3); TOTAL PROTEIN 7.5 g/dL (6.4-8.2)
[2019-07-15] MEDS: CEFTRIAXONE PMX 2GM/50ML 50 ML IV SCH (05:39)
[2019-07-15 06:46] VITALS: BP 135/67
[2019-07-15] MEDS: INSULIN LISPRO 100 UNITS/ML, PEN SQ-INSULIN SCH ×2 (07:00→12:02)
[2019-07-15] MEDS ORDERED: FUROSEMIDE 40 MG/4 ML IV SCH (09:00)
[2019-07-15] MEDS: SODIUM CHLORIDE FLUSH 10ML SYR IVF SCH (09:00)
[2019-07-15] MEDS: SENNA/DOCUSATE TABLET PO SCH (09:00)
[2019-07-15] MEDS: FAMOTIDINE 20 MG TABLET PO SCH (10:18)
[2019-07-15] MEDS: ASPIRIN 81 MG TABLET EC PO SCH (10:18)
[2019-07-15] MEDS: SPIRONOLACTONE 50 MG TABLET PO SCH (10:18)
[2019-07-15] MEDS: DOXYCYCLINE 100MG TABLET PO SCH (10:18)
[2019-07-15] MEDS: ALLOPURINOL 100 MG TABLET PO SCH (10:18)
[2019-07-15] MEDS: MULTIVITAMIN 1 TABLET PO SCH (10:18)
[2019-07-15] MEDS: FLUOXETINE 10 MG CAP PO SCH (10:19)
[2019-07-15] MEDS: APIXABAN 5 MG TABLET PO SCH (10:19)
[2019-07-15] MEDS: MECLIZINE 25 MG TABLET PO SCH (10:19)
[2019-07-15] MEDS: CARVEDILOL 25 MG TABLET PO SCH (10:19)
[2019-07-15] MEDS: CHOLECALCIFEROL 5,000u TAB PO SCH (10:19)
[2019-07-15] MEDS: ISOSORBIDE DINITRATE 10 MG TABLET PO SCH (10:19)
[2019-07-15] MEDS: FENOFIBRATE 145 MG TABLET PO SCH (10:20)
[2019-07-15 13:19] VITALS: BP 116/72
[2019-07-15] MEDS ORDERED: POTA10CA PO ×2 (13:26)
[2019-07-15] MEDS ORDERED: FURO-92 PO (13:26)
[2019-07-15] MEDS ORDERED: MAGNESIUM SULFATE/D5W 100 ML IV ONE (13:30)
[2019-07-15] MEDS ORDERED: MAGN400T26 PO (13:31)
== END 2019-07-15 17:45 | disposition home or self-care (01) | DRG 291 ==
LOC: ED 19:28 → EDIP 20:59 → 5SO 22:35
PROVIDERS: ADMIT Internal Medicine; ATTEND Internal Medicine
PROC: 0W993ZZ Drainage of Right Pleural Cavity, Percutaneous Approach (ICD-10-PCS; principal; 2019-07-11)
DX: I13.0 Hypertensive heart and chronic kidney disease with heart failure and stage 1 through stage 4 chronic kidney disease, or unspecified chronic kidney disease (principal); I50.23 Acute on chronic systolic (congestive) heart failure; J18.9 Pneumonia, unspecified organism; Z68.42 Body mass index [BMI] 45.0-49.9, adult; J91.8 Pleural effusion in other conditions classified elsewhere; D68.69 Other thrombophilia; I48.20 Chronic atrial fibrillation, unspecified; J96.10 Chronic respiratory failure, unspecified whether with hypoxia or hypercapnia; I35.0 Nonrheumatic aortic (valve) stenosis; I27.20 Pulmonary hypertension, unspecified; D64.9 Anemia, unspecified; E11.22 Type 2 diabetes mellitus with diabetic chronic kidney disease; E11.65 Type 2 diabetes mellitus with hyperglycemia; E66.01 Morbid (severe) obesity due to excess calories; E78.5 Hyperlipidemia, unspecified; G47.33 Obstructive sleep apnea (adult) (pediatric); I25.10 Atherosclerotic heart disease of native coronary artery without angina pectoris; I25.5 Ischemic cardiomyopathy; J43.9 Emphysema, unspecified; K21.9 Gastro-esophageal reflux disease without esophagitis; M10.9 Gout, unspecified; N18.3 Chronic kidney disease, stage 3 (moderate); Z82.49 Family history of ischemic heart disease and other diseases of the circulatory system; Z81.8 Family history of other mental and behavioral disorders; I25.2 Old myocardial infarction; Z79.4 Long term (current) use of insulin; Z87.891 Personal history of nicotine dependence; Z95.1 Presence of aortocoronary bypass graft; Z99.81 Dependence on supplemental oxygen; Z79.01 Long term (current) use of anticoagulants; Z79.899 Other long term (current) drug therapy; Z79.82 Long term (current) use of aspirin; Z79.51 Long term (current) use of inhaled steroids
CPT/HCPCS: 32555; 36415; 70450; 71045; 80048; 80053; 82962; 83036; 83735; 83880; 84100; 84484; 85025; 85610; 93005; 93321; 93325; 99285; G0378; J0696; J1940; C8924; J1815

== ENCOUNTER 2019-08-04 13:46 | Inpatient (IN) | payer MEDICARE, OTHER ==
[~2019-08-04] VITALS: Ht 157.5 cm; Wt 121.5 kg
[~2019-08-04 13:46] MED LIST changes: +FURO-92 PO; +INSU100I13 SQ-INSULIN; +POTA10CA PO
--- NOTE | 2019-08-04 13:56 | NUR ---
74 YR OLD MALE ARRIVED VIA EMS WITH LEFT CP BEGAN THIS AM. PAIN NOW "MAINLY IN BACK". PT ARRIVED WITH 18G IV IN RIGHT HAND. 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 PT ALSO WITH C/O PAIN AND RASH LEFT HAND/ARM. DR ESPINOZA AT BEDSIDE TO QAMAR PT
--- NOTE | 2019-08-04 14:20 | NUR ---
MD EXAM: PT HAS SHINGLES LEFT HAND. ISOLATION PRECAUTIONS IN PLACE.
[2019-08-04 14:26] LABS: BASOPHILS # (AUTO) 0.01 x10^3/uL (0-0.1); BASOPHILS % (AUTO) 0 % (0-1); EOSINOPHILS # (AUTO) 0.05 x10^3/uL (0-0.4); EOSINOPHILS % (AUTO) 1 % (1-7); LYMPHOCYTES # (AUTO) 0.87 x10^3/uL (1-3.4); LYMPHOCYTES % (AUTO) 24 % (22-44); MD NO; MEAN CORPUSCULAR HGB CONC 32.9 g/dL (33.2-36.2); MEAN CORPUSCULAR VOLUME 97.5 fL (81-97); MONOCYTES # (AUTO) 0.61 x10^3/uL (0.2-0.8); MONOCYTES % (AUTO) 17 % (2-9); NEUTROPHILS # (AUTO) 2.09 x10^3/uL (1.8-6.8); NEUTROPHILS % (AUTO) 58 % (42-75); PLATELET COUNT 157 x10^3/uL (130-400)
[2019-08-04 14:32] LABS: ALANINE AMINOTRANSFERASE 13 U/L (12-78); ALBUMIN 3.1 g/dL (3.4-5.0); ANION GAP 5 mmol/L (5-15); CALCIUM 8.2 mg/dL (8.5-10.1); CHLORIDE 106 mmol/L (98-107)
[2019-08-04 14:36] LABS: ALKALINE PHOSPHATASE 32 U/L (45-117); BILIRUBIN,TOTAL 0.4 mg/dL (0.2-1.0); TOTAL PROTEIN 7.3 g/dL (6.4-8.2); TROPONIN I < 0.015 ng/mL (0.000-0.045)
[2019-08-04] MEDS ORDERED: FUROSEMIDE 40 MG/4 ML IV ONE (15:00)
[2019-08-04] MEDS ORDERED: FUROSEMIDE 40 MG/4 ML ONE (15:13)
[2019-08-04] MEDS ORDERED: MORPHINE SULFATE 4 MG/ML, 1ML ONE (15:13)
[2019-08-04] MEDS ORDERED: MORPHINE SULFATE 4 MG/ML, 1ML IVPush ONE (15:30)
--- NOTE | 2019-08-04 15:31 | NUR ---
AFTER MEDICATED FOR CHEST PAIN AND LEFT HAND PAIN, PT STATES CP MUCH IMPROVED BUT HAND HURTS. AWARE OF INTENTION TO ADMIT
[2019-08-04] MEDS ORDERED: ACETAMINOPHEN 325 MG TABLET PO PRN (16:00)
--- NOTE | 2019-08-04 16:29 | NUR ---
REPORT TO CORINE JACK. TO BE TRANSPORTED TO FLOOR.
[2019-08-04] MEDS: FUROSEMIDE 40 MG/4 ML IV SCH (17:00)
[2019-08-04 17:27] VITALS: BP 135/66
[2019-08-04] MEDS: GABAPENTIN 100 MG CAPSULE PO SCH ×2 (17:29→20:42)
[2019-08-04] MEDS: ISOSORBIDE DINITRATE 10 MG TABLET PO SCH ×2 (17:29→20:43)
[2019-08-04] MEDS: VALACYCLOVIR 500MG TABLET PO SCH (17:41)
[2019-08-04] MEDS ORDERED: DEXTROSE 4 GM TAB.CHEW PO PRN (18:00)
[2019-08-04] MEDS ORDERED: DEXTROSE 50%, 50ML SYRINGE IVPush PRN (18:00)
[2019-08-04] MEDS ORDERED: GLUCAGON 1 MG IM PRN (18:00)
[2019-08-04] MEDS: MECLIZINE 25 MG TABLET PO SCH (20:42)
[2019-08-04] MEDS: ATORVASTATIN 40 MG TABLET PO SCH (20:42)
[2019-08-04] MEDS: APIXABAN 2.5 MG TABLET PO SCH (20:43)
[2019-08-04] MEDS: FAMOTIDINE 20 MG TABLET PO SCH (20:43)
[2019-08-04] MEDS: CARVEDILOL 25 MG TABLET PO SCH (20:43)
[2019-08-04 22:08] VITALS: BP 102/61
[2019-08-04] MEDS: INSULIN GLARGINE 100 UNITS/ML, PEN SQ-INSULIN SCH (22:13)
[2019-08-04] MEDS: MAGNESIUM OXIDE 400 MG TABLET PO SCH (22:13)
[2019-08-04] MEDS: SODIUM CHLORIDE FLUSH 10ML SYR IVF SCH (22:13)
[2019-08-04] MEDS: morphine SULFATE 10 MG/ML, 1ML IVPush PRN (22:14)
[2019-08-04 22:27] VITALS: BP 102/58
[2019-08-04 23:32] LABS: TROPONIN I 0.017 ng/mL (0.000-0.045)
[2019-08-05] VITALS (9 sets, daily range): BP systolic 77–124; BP diastolic 45–72
[2019-08-05] MEDS: morphine SULFATE 10 MG/ML, 1ML IVPush PRN ×4 (01:38→22:18)
[2019-08-05 05:37] LABS: BASOPHILS # (AUTO) 0.01 x10^3/uL (0-0.1); BASOPHILS % (AUTO) 0 % (0-1); EOSINOPHILS # (AUTO) 0.08 x10^3/uL (0-0.4); EOSINOPHILS % (AUTO) 2 % (1-7); LYMPHOCYTES # (AUTO) 1.12 x10^3/uL (1-3.4); LYMPHOCYTES % (AUTO) 29 % (22-44); MD NO; MEAN CORPUSCULAR HEMOGLOBIN 32.4 pg (27.5-34.5); MEAN CORPUSCULAR HGB CONC 33.8 g/dL (33.2-36.2); MEAN CORPUSCULAR VOLUME 95.9 fL (81-97); MEAN PLATELET VOLUME 9.4 fL (7.4-10.4); MONOCYTES # (AUTO) 0.68 x10^3/uL (0.2-0.8); MONOCYTES % (AUTO) 18 % (2-9); NEUTROPHILS # (AUTO) 1.99 x10^3/uL (1.8-6.8); NEUTROPHILS % (AUTO) 51 % (42-75); PLATELET COUNT 143 x10^3/uL (130-400); RED BLOOD COUNT 3.06 x10^6/uL (4.38-5.82); RED CELL DISTRIBUTION WIDTH 15.2 % (9.4-14.8)
[2019-08-05 05:49] LABS: CHLORIDE 104 mmol/L (98-107)
[2019-08-05 06:02] LABS: ANION GAP 8 mmol/L (5-15)
[2019-08-05 06:03] LABS: TROPONIN I 0.019 ng/mL (0.000-0.045)
[2019-08-05] MEDS: MAGNESIUM OXIDE 400 MG TABLET PO SCH ×2 (08:43→20:54)
[2019-08-05] MEDS: FLUOXETINE 10 MG CAP PO SCH (08:43)
[2019-08-05] MEDS: GABAPENTIN 100 MG CAPSULE PO SCH ×3 (08:44→20:53)
[2019-08-05] MEDS: ASPIRIN 81 MG TABLET EC PO SCH (08:45)
[2019-08-05] MEDS: ISOSORBIDE DINITRATE 10 MG TABLET PO SCH ×2 (08:45→13:34)
[2019-08-05] MEDS: MECLIZINE 25 MG TABLET PO SCH ×2 (08:45→21:09)
[2019-08-05] MEDS: SPIRONOLACTONE 25 MG TABLET PO SCH (08:45)
[2019-08-05] MEDS: APIXABAN 2.5 MG TABLET PO SCH ×2 (08:45→20:54)
[2019-08-05] MEDS: CARVEDILOL 25 MG TABLET PO SCH (08:46)
[2019-08-05] MEDS: FUROSEMIDE 40 MG/4 ML IV SCH (08:46)
[2019-08-05] MEDS: ALLOPURINOL 100 MG TABLET PO SCH (08:47)
[2019-08-05] MEDS: FAMOTIDINE 20 MG TABLET PO SCH ×2 (08:47→20:54)
[2019-08-05] MEDS: VALACYCLOVIR 500MG TABLET PO SCH ×2 (08:47→20:54)
[2019-08-05] MEDS: FENOFIBRATE 145 MG TABLET PO SCH (08:47)
[2019-08-05] MEDS: SODIUM CHLORIDE FLUSH 10ML SYR IVF SCH ×2 (08:47→20:53)
[2019-08-05] MEDS ORDERED: POTASSIUM CHLORIDE 10 MEQ TABLET.ER PO SCH (09:00)
[2019-08-05] MEDS ORDERED: FUROSEMIDE 40 MG TABLET PO SCH (09:00)
[2019-08-05] MEDS ORDERED: OXYcodone IR 5MG TABLET PO PRN (12:00)
[2019-08-05] MEDS ORDERED: INSULIN LISPRO 100 UNITS/ML, PEN ONE (13:10)
[2019-08-05] MEDS ORDERED: MORPHINE SULFATE 4 MG/ML, 1ML ONE ×2 (13:15→17:51)
[2019-08-05] MEDS: INSULIN LISPRO 100 UNITS/ML, PEN SQ-INSULIN SCH ×2 (13:25→17:49)
[2019-08-05] MEDS ORDERED: INSULIN LISPRO 100 UNITS/ML, PEN SQ-INSULIN SCH (17:57)
[2019-08-05] MEDS: ATORVASTATIN 40 MG TABLET PO SCH (20:54)
[2019-08-05] MEDS: CARVEDILOL 12.5 MG TABLET PO SCH (20:55)
[2019-08-05] MEDS: INSULIN GLARGINE 100 UNITS/ML, PEN SQ-INSULIN SCH (20:56)
[2019-08-06 01:30] VITALS: BP 99/66
[2019-08-06 05:45] LABS: ANION GAP 8 mmol/L (5-15); CALCIUM 7.9 mg/dL (8.5-10.1); CHLORIDE 102 mmol/L (98-107)
[2019-08-06 05:48] LABS: CREATININE 2.77 mg/dL (0.7-1.3)
[2019-08-06] MEDS ORDERED: SODIUM CHLORIDE 0.9%, 500ML IVBOLUS ONE (07:00)
[2019-08-06 07:26] VITALS: BP 91/53
[2019-08-06] MEDS: FLUOXETINE 10 MG CAP PO SCH (08:10)
[2019-08-06] MEDS: VALACYCLOVIR 500MG TABLET PO SCH ×2 (08:11→10:58)
[2019-08-06] MEDS: ASPIRIN 81 MG TABLET EC PO SCH (08:11)
[2019-08-06] MEDS: CARVEDILOL 12.5 MG TABLET PO SCH ×2 (08:11→21:44)
[2019-08-06] MEDS: ALLOPURINOL 100 MG TABLET PO SCH (08:11)
[2019-08-06] MEDS: MECLIZINE 25 MG TABLET PO SCH ×2 (08:11→21:43)
[2019-08-06] MEDS: MAGNESIUM OXIDE 400 MG TABLET PO SCH ×2 (08:11→21:00)
[2019-08-06] MEDS: FENOFIBRATE 145 MG TABLET PO SCH (08:11)
[2019-08-06] MEDS: APIXABAN 2.5 MG TABLET PO SCH ×2 (08:11→22:17)
[2019-08-06] MEDS: INSULIN LISPRO 100 UNITS/ML, PEN SQ-INSULIN SCH ×4 (08:12→21:00)
[2019-08-06] MEDS: SODIUM CHLORIDE FLUSH 10ML SYR IVF SCH ×2 (08:13→21:45)
[2019-08-06] MEDS: GABAPENTIN 100 MG CAPSULE PO SCH ×3 (08:18→21:44)
[2019-08-06] MEDS: SPIRONOLACTONE 25 MG TABLET PO SCH (08:18)
[2019-08-06 12:59] VITALS: BP 92/57
[2019-08-06 14:58] VITALS: BP 148/78
[2019-08-06 18:39] VITALS: BP 109/59
[2019-08-06 20:14] VITALS: BP 108/46
[2019-08-06] MEDS: INSULIN GLARGINE 100 UNITS/ML, PEN SQ-INSULIN SCH (21:00)
[2019-08-06] MEDS: ATORVASTATIN 40 MG TABLET PO SCH (21:43)
[2019-08-06] MEDS: FAMOTIDINE 20 MG TABLET PO SCH (21:44)
[2019-08-07 00:55] VITALS: BP 121/76
[2019-08-07 05:50] LABS: BASOPHILS # (AUTO) 0.01 x10^3/uL (0-0.1); BASOPHILS % (AUTO) 0 % (0-1); EOSINOPHILS # (AUTO) 0.07 x10^3/uL (0-0.4); EOSINOPHILS % (AUTO) 2 % (1-7); LYMPHOCYTES # (AUTO) 1.11 x10^3/uL (1-3.4); LYMPHOCYTES % (AUTO) 25 % (22-44); MD NO; MEAN CORPUSCULAR HEMOGLOBIN 32.3 pg (27.5-34.5); MEAN CORPUSCULAR HGB CONC 33.3 g/dL (33.2-36.2); MONOCYTES # (AUTO) 0.68 x10^3/uL (0.2-0.8); MONOCYTES % (AUTO) 15 % (2-9); NEUTROPHILS # (AUTO) 2.62 x10^3/uL (1.8-6.8); NEUTROPHILS % (AUTO) 58 % (42-75); PLATELET COUNT 126 x10^3/uL (130-400); RED BLOOD COUNT 2.71 x10^6/uL (4.38-5.82); RED CELL DISTRIBUTION WIDTH 14.7 % (9.4-14.8)
[2019-08-07 05:57] LABS: ANION GAP 6 mmol/L (5-15); CALCIUM 7.9 mg/dL (8.5-10.1); CHLORIDE 102 mmol/L (98-107)
[2019-08-07 05:59] LABS: CREATININE 2.82 mg/dL (0.7-1.3)
[2019-08-07] MEDS ORDERED: SODIUM CHLORIDE 0.9%, 500ML IVBOLUS ONE (07:00)
[2019-08-07] MEDS: INSULIN LISPRO 100 UNITS/ML, PEN SQ-INSULIN SCH ×4 (07:33→22:26)
[2019-08-07 08:14] VITALS: BP 117/78
[2019-08-07] MEDS: CARVEDILOL 12.5 MG TABLET PO SCH ×2 (08:19→21:47)
[2019-08-07] MEDS: FLUOXETINE 10 MG CAP PO SCH (08:20)
[2019-08-07] MEDS: GABAPENTIN 100 MG CAPSULE PO SCH (08:21)
[2019-08-07] MEDS: ASPIRIN 81 MG TABLET EC PO SCH (08:21)
[2019-08-07] MEDS: FENOFIBRATE 145 MG TABLET PO SCH (08:21)
[2019-08-07] MEDS: VALACYCLOVIR 500MG TABLET PO SCH (08:21)
[2019-08-07] MEDS: APIXABAN 2.5 MG TABLET PO SCH ×2 (08:21→21:48)
[2019-08-07] MEDS: MECLIZINE 25 MG TABLET PO SCH ×2 (08:21→21:47)
[2019-08-07] MEDS: MAGNESIUM OXIDE 400 MG TABLET PO SCH ×2 (08:21→21:47)
[2019-08-07] MEDS: ALLOPURINOL 100 MG TABLET PO SCH (08:21)
[2019-08-07] MEDS: SODIUM CHLORIDE FLUSH 10ML SYR IVF SCH ×2 (08:22→21:46)
[2019-08-07 13:01] LABS: MICROSCOPIC AUTO
[2019-08-07 13:07] LABS: CULTURE INDICATED? YES
[2019-08-07 13:20] LABS: OCCULT BLOOD NEGATIVE (NEGATIVE)
[2019-08-07 13:52] VITALS: BP 117/74
[2019-08-07 19:58] VITALS: BP 105/67
[2019-08-07] MEDS: FAMOTIDINE 20 MG TABLET PO SCH (21:48)
[2019-08-07] MEDS: INSULIN GLARGINE 100 UNITS/ML, PEN SQ-INSULIN SCH (22:25)
[2019-08-07] MEDS: ATORVASTATIN 40 MG TABLET PO SCH (22:25)
[2019-08-08 01:30] VITALS: BP 121/82
[2019-08-08 05:45] LABS: ANION GAP 6 mmol/L (5-15); BASOPHILS # (AUTO) 0.03 x10^3/uL (0-0.1); BASOPHILS % (AUTO) 0 % (0-1); CHLORIDE 103 mmol/L (98-107); EOSINOPHILS # (AUTO) 0.05 x10^3/uL (0-0.4); EOSINOPHILS % (AUTO) 1 % (1-7); LYMPHOCYTES # (AUTO) 0.97 x10^3/uL (1-3.4); LYMPHOCYTES % (AUTO) 17 % (22-44); MD NO; MEAN CORPUSCULAR HEMOGLOBIN 32.4 pg (27.5-34.5); MEAN CORPUSCULAR HGB CONC 33.3 g/dL (33.2-36.2); MEAN CORPUSCULAR VOLUME 97.3 fL (81-97); MEAN PLATELET VOLUME 9.8 fL (7.4-10.4); MONOCYTES # (AUTO) 0.74 x10^3/uL (0.2-0.8); MONOCYTES % (AUTO) 13 % (2-9); NEUTROPHILS % (AUTO) 69 % (42-75); PLATELET COUNT 142 x10^3/uL (130-400); RED BLOOD COUNT 2.69 x10^6/uL (4.38-5.82); RED CELL DISTRIBUTION WIDTH 14.9 % (9.4-14.8)
[2019-08-08 06:02] LABS: CALCIUM 8.4 mg/dL (8.5-10.1); CREATININE 2.86 mg/dL (0.7-1.3)
[2019-08-08 06:42] VITALS: BP 129/79
[2019-08-08] MEDS ORDERED: SODIUM POLYSTYRENE SULFONATE ORAL SUSP PO ONE (07:00)
[2019-08-08] MEDS: INSULIN LISPRO 100 UNITS/ML, PEN SQ-INSULIN SCH ×4 (07:01→21:00)
[2019-08-08] MEDS: ASPIRIN 81 MG TABLET EC PO SCH (08:38)
[2019-08-08] MEDS: MAGNESIUM OXIDE 400 MG TABLET PO SCH ×2 (08:38→20:36)
[2019-08-08] MEDS: FLUOXETINE 10 MG CAP PO SCH (08:38)
[2019-08-08] MEDS: VALACYCLOVIR 500MG TABLET PO SCH (08:38)
[2019-08-08] MEDS: FENOFIBRATE 145 MG TABLET PO SCH (08:38)
[2019-08-08] MEDS: ALLOPURINOL 100 MG TABLET PO SCH (08:38)
[2019-08-08] MEDS: CARVEDILOL 12.5 MG TABLET PO SCH ×2 (08:38→22:05)
[2019-08-08] MEDS: APIXABAN 2.5 MG TABLET PO SCH ×2 (08:39→22:05)
[2019-08-08] MEDS: SODIUM CHLORIDE FLUSH 10ML SYR IVF SCH ×2 (08:39→20:36)
[2019-08-08] MEDS: MECLIZINE 25 MG TABLET PO SCH ×2 (08:39→20:36)
[2019-08-08 12:53] VITALS: BP 148/82
[2019-08-08] MEDS ORDERED: PROPOFOL 10 MG/ML, 20ML ONE (16:22)
[2019-08-08] MEDS ORDERED: ROCURONIUM 10 MG/ML,10ML ONE (16:22)
[2019-08-08] MEDS ORDERED: FENTANYL PF 100 MCG/2ML ONE (16:22)
[2019-08-08] MEDS ORDERED: PHENYLEPHRINE 10 MG/ML ONE (16:22)
[2019-08-08] MEDS ORDERED: ONDANSETRON 2MG/ML, 2ML ONE (16:22)
[2019-08-08] MEDS ORDERED: PROMETHAZINE 25 MG/ML, 1ML IV PRN (18:30)
[2019-08-08] MEDS ORDERED: OXYcodone 5 MG/5 ML ORAL.SOL UDC PO PRN (18:30)
[2019-08-08] MEDS ORDERED: FENTANYL PF 100 MCG/2ML IV PRN (18:30)
[2019-08-08] MEDS ORDERED: ONDANSETRON 2MG/ML, 2ML IV PRN (18:30)
[2019-08-08] MEDS ORDERED: HYDROmorphone 2 MG/ML, 1ML IVPush PRN (18:30)
[2019-08-08 20:27] VITALS: BP 137/81
[2019-08-08] MEDS: FAMOTIDINE 20 MG TABLET PO SCH (20:35)
[2019-08-08] MEDS: ATORVASTATIN 40 MG TABLET PO SCH (20:36)
[2019-08-08] MEDS: INSULIN GLARGINE 100 UNITS/ML, PEN SQ-INSULIN SCH (21:00)
[2019-08-09 01:04] VITALS: BP 154/71
[2019-08-09 05:38] LABS: ANION GAP 6 mmol/L (5-15); CALCIUM 8.2 mg/dL (8.5-10.1); CHLORIDE 107 mmol/L (98-107); CREATININE 2.49 mg/dL (0.7-1.3)
[2019-08-09] MEDS: INSULIN LISPRO 100 UNITS/ML, PEN SQ-INSULIN SCH ×4 (07:00→21:19)
[2019-08-09] MEDS ORDERED: [UNRECOGNIZED DRUG - REMARK] MC SCH (08:00)
[2019-08-09 08:50] VITALS: BP 126/78
[2019-08-09] MEDS: FENOFIBRATE 145 MG TABLET PO SCH (08:58)
[2019-08-09] MEDS: MAGNESIUM OXIDE 400 MG TABLET PO SCH ×2 (08:58→21:13)
[2019-08-09] MEDS: ASPIRIN 81 MG TABLET EC PO SCH (08:59)
[2019-08-09] MEDS: MECLIZINE 25 MG TABLET PO SCH ×2 (08:59→21:13)
[2019-08-09] MEDS: ALLOPURINOL 100 MG TABLET PO SCH (08:59)
[2019-08-09] MEDS: APIXABAN 2.5 MG TABLET PO SCH ×2 (08:59→21:13)
[2019-08-09] MEDS: FUROSEMIDE 40 MG TABLET PO SCH ×2 (08:59→17:33)
[2019-08-09] MEDS: VALACYCLOVIR 500MG TABLET PO SCH (08:59)
[2019-08-09] MEDS: FLUOXETINE 10 MG CAP PO SCH (08:59)
[2019-08-09] MEDS: CARVEDILOL 25 MG TABLET PO SCH ×2 (08:59→21:13)
[2019-08-09] MEDS: SODIUM CHLORIDE FLUSH 10ML SYR IVF SCH ×2 (09:00→21:14)
[2019-08-09] MEDS: SPIRONOLACTONE 25 MG TABLET PO SCH (11:48)
[2019-08-09 14:01] VITALS: BP 111/68
[2019-08-09 21:10] VITALS: BP 132/71
[2019-08-09] MEDS: FAMOTIDINE 20 MG TABLET PO SCH (21:13)
[2019-08-09] MEDS: ATORVASTATIN 40 MG TABLET PO SCH (21:13)
[2019-08-09] MEDS: INSULIN GLARGINE 100 UNITS/ML, PEN SQ-INSULIN SCH (21:41)
[2019-08-10 05:20] VITALS: BP 123/71
[2019-08-10 05:50] LABS: ANION GAP 7 mmol/L (5-15); CALCIUM 8.4 mg/dL (8.5-10.1); CHLORIDE 104 mmol/L (98-107); CREATININE 2.68 mg/dL (0.7-1.3)
[2019-08-10] MEDS: INSULIN LISPRO 100 UNITS/ML, PEN SQ-INSULIN SCH ×3 (07:00→20:58)
[2019-08-10 08:41] VITALS: BP 136/74
[2019-08-10] MEDS: ASPIRIN 81 MG TABLET EC PO SCH (09:05)
[2019-08-10] MEDS: FENOFIBRATE 145 MG TABLET PO SCH (09:05)
[2019-08-10] MEDS: FLUOXETINE 10 MG CAP PO SCH (09:05)
[2019-08-10] MEDS: CARVEDILOL 25 MG TABLET PO SCH ×2 (09:05→20:53)
[2019-08-10] MEDS: VALACYCLOVIR 500MG TABLET PO SCH (09:06)
[2019-08-10] MEDS: ALLOPURINOL 100 MG TABLET PO SCH (09:06)
[2019-08-10] MEDS: MECLIZINE 25 MG TABLET PO SCH ×2 (09:06→20:53)
[2019-08-10] MEDS: APIXABAN 2.5 MG TABLET PO SCH ×2 (09:06→20:53)
[2019-08-10] MEDS: MAGNESIUM OXIDE 400 MG TABLET PO SCH ×2 (09:06→20:53)
[2019-08-10] MEDS: FUROSEMIDE 40 MG TABLET PO SCH (09:06)
[2019-08-10] MEDS: SODIUM CHLORIDE FLUSH 10ML SYR IVF SCH ×2 (09:07→20:54)
[2019-08-10] MEDS: SPIRONOLACTONE 25 MG TABLET PO SCH (09:10)
[2019-08-10 16:56] VITALS: BP 107/61
[2019-08-10 20:50] VITALS: BP 114/71
[2019-08-10] MEDS: ATORVASTATIN 40 MG TABLET PO SCH (20:53)
[2019-08-10] MEDS: FAMOTIDINE 20 MG TABLET PO SCH (20:53)
[2019-08-10] MEDS: INSULIN GLARGINE 100 UNITS/ML, PEN SQ-INSULIN SCH (21:14)
[2019-08-11 02:12] VITALS: BP 117/69
[2019-08-11 07:09] VITALS: BP 107/69
[2019-08-11] MEDS: INSULIN LISPRO 100 UNITS/ML, PEN SQ-INSULIN SCH ×2 (09:31→13:04)
[2019-08-11] MEDS: SODIUM CHLORIDE FLUSH 10ML SYR IVF SCH (09:32)
[2019-08-11] MEDS: VALACYCLOVIR 500MG TABLET PO SCH (09:33)
[2019-08-11] MEDS: ASPIRIN 81 MG TABLET EC PO SCH (09:34)
[2019-08-11] MEDS: FUROSEMIDE 40 MG TABLET PO SCH (09:34)
[2019-08-11] MEDS: FENOFIBRATE 145 MG TABLET PO SCH (09:35)
[2019-08-11] MEDS: CARVEDILOL 25 MG TABLET PO SCH (09:36)
[2019-08-11] MEDS: ALLOPURINOL 100 MG TABLET PO SCH (09:37)
[2019-08-11] MEDS: FLUOXETINE 10 MG CAP PO SCH (09:37)
[2019-08-11] MEDS: APIXABAN 2.5 MG TABLET PO SCH (09:37)
[2019-08-11] MEDS: MAGNESIUM OXIDE 400 MG TABLET PO SCH (09:38)
[2019-08-11] MEDS: SPIRONOLACTONE 25 MG TABLET PO SCH (09:38)
[2019-08-11] MEDS: MECLIZINE 25 MG TABLET PO SCH (09:38)
[2019-08-11] MEDS ORDERED: VALA500T8 PO (14:13)
[2019-08-11 14:29] VITALS: BP 104/66
== END 2019-08-11 18:35 | disposition home or self-care (01) | DRG 595 ==
LOC: ED 14:17 → EDIP 15:58 → INTOOBSV 15:58 → 5SO 16:52 → OBSVTOIN 08-06 13:10
PROVIDERS: ADMIT Internal Medicine Infectious Disease; ATTEND Hospitalist
DX: B02.9 Zoster without complications (principal); N17.0 Acute kidney failure with tubular necrosis; B01.9 Varicella without complication; I13.0 Hypertensive heart and chronic kidney disease with heart failure and stage 1 through stage 4 chronic kidney disease, or unspecified chronic kidney disease; J96.10 Chronic respiratory failure, unspecified whether with hypoxia or hypercapnia; N18.4 Chronic kidney disease, stage 4 (severe); E66.2 Morbid (severe) obesity with alveolar hypoventilation; G93.40 Encephalopathy, unspecified; Z68.42 Body mass index [BMI] 45.0-49.9, adult; E11.22 Type 2 diabetes mellitus with diabetic chronic kidney disease; I27.20 Pulmonary hypertension, unspecified; E11.42 Type 2 diabetes mellitus with diabetic polyneuropathy; D64.9 Anemia, unspecified; B02.0 Zoster encephalitis; E78.5 Hyperlipidemia, unspecified; E87.5 Hyperkalemia; G37.3 Acute transverse myelitis in demyelinating disease of central nervous system; I25.10 Atherosclerotic heart disease of native coronary artery without angina pectoris; I25.5 Ischemic cardiomyopathy; I35.0 Nonrheumatic aortic (valve) stenosis; K21.9 Gastro-esophageal reflux disease without esophagitis; I48.0 Paroxysmal atrial fibrillation; J43.9 Emphysema, unspecified; M10.9 Gout, unspecified; T42.6X5A Adverse effect of other antiepileptic and sedative-hypnotic drugs, initial encounter; Y92.89 Other specified places as the place of occurrence of the external cause; Z79.01 Long term (current) use of anticoagulants; I25.2 Old myocardial infarction; Z79.4 Long term (current) use of insulin; Z81.8 Family history of other mental and behavioral disorders; Z82.49 Family history of ischemic heart disease and other diseases of the circulatory system; Z87.891 Personal history of nicotine dependence; Z95.1 Presence of aortocoronary bypass graft; Z99.81 Dependence on supplemental oxygen; Z79.899 Other long term (current) drug therapy
CPT/HCPCS: 36415; 70551; 71045; 72141; 76770; 80048; 80053; 81001; 82272; 82570; 82962; 83735; 83880; 84132; 84300; 84484; 85025; 87086; 93005; 96374; G0378; J1940; J2405; J2704; J3010; J1815; J2270; J2370; J7040

== ENCOUNTER 2019-10-29 19:08 | Emergency (ER) | payer MEDICARE, OTHER ==
[~2019-10-29] VITALS: Ht 160 cm; Wt 118.8 kg
[~2019-10-29 19:08] MED LIST changes: +VALA500T8 PO
--- NOTE | 2019-10-29 19:38 | NUR ---
PT BIB [facility] TONIGHT FOR INCREASING SOB AT HOME. PT OXYGEN DEPENDENT ON 4 L WITH HISTORY OF CHF, NIR, AND PULMONARY EDEMA. PT STATES THAT DESPITE COMPLIANCE WITH HOME MEDS, PT IS GETTING INCREASING ORTHOPNEA. PT AAO X 4 UPON ARRIVAL TO [facility] ED. PT VSS EN ROUTE FOR [facility]. PT FSBS 201 ON SCENE. IV ACCESS ESTABLISHED BY EMS WITH NO INTERVENTIONS EN ROUTE. UPON ARRIVAL TO [facility] ED, PT ATTACHED TO VS AND CARDIAC MONITORS. VSS. PT EDUCATED ON ER PROCESS AND VERBALIZES UNDERSTANDING. CALL LIGHT IS WITHIN REACH. AWAITING ERP AND NEW ORDERS AT THIS TIME.
--- NOTE | 2019-10-29 19:44 | NUR ---
DR. JORDAN AT FOR PT HISTORY AND ASSESSMENT
[2019-10-29] MEDS ORDERED: SODIUM CHLORIDE FLUSH 10ML SYR IVF ONE (20:00)
[2019-10-29 20:33] LABS: BASOPHILS # (AUTO) 0.02 x10^3/uL (0-0.1); BASOPHILS % (AUTO) 0 % (0-1); EOSINOPHILS # (AUTO) 0.07 x10^3/uL (0-0.4); EOSINOPHILS % (AUTO) 1 % (1-7); LYMPHOCYTES # (AUTO) 0.79 x10^3/uL (1-3.4); LYMPHOCYTES % (AUTO) 14 % (22-44); MD NO; MEAN CORPUSCULAR HEMOGLOBIN 31.8 pg (27.5-34.5); MEAN CORPUSCULAR HGB CONC 32.7 g/dL (33.2-36.2); MEAN CORPUSCULAR VOLUME 97.2 fL (81-97); MEAN PLATELET VOLUME 9.6 fL (7.4-10.4); MONOCYTES # (AUTO) 0.76 x10^3/uL (0.2-0.8); MONOCYTES % (AUTO) 14 % (2-9); NEUTROPHILS # (AUTO) 3.93 x10^3/uL (1.8-6.8); NEUTROPHILS % (AUTO) 71 % (42-75); PLATELET COUNT 189 x10^3/uL (130-400); RED BLOOD COUNT 3.27 x10^6/uL (4.38-5.82); RED CELL DISTRIBUTION WIDTH 15.6 % (9.4-14.8)
--- NOTE | 2019-10-29 20:44 | NUR ---
PT SITTING IN [facility] AT THIS TIME; JEFF. CALL LIGHT WITHIN REACH. PT DENIES ANY NEEDS AT THIS TIME.
[2019-10-29 20:50] LABS: ALANINE AMINOTRANSFERASE 10 U/L (12-78); ALBUMIN 2.9 g/dL (3.4-5.0); ANION GAP 4 mmol/L (5-15); CALCIUM 8.7 mg/dL (8.5-10.1); CHLORIDE 106 mmol/L (98-107)
[2019-10-29 20:54] LABS: ALKALINE PHOSPHATASE 32 U/L (45-117); BILIRUBIN,TOTAL 0.2 mg/dL (0.2-1.0); CREATININE 2.05 mg/dL (0.7-1.3); TOTAL PROTEIN 7.5 g/dL (6.4-8.2); TROPONIN I 0.018 ng/mL (0.000-0.045)
[2019-10-29] MEDS ORDERED: LIDOCAINE 1%, 10ML ONE (21:30)
--- NOTE | 2019-10-29 22:59 | NUR ---
PT WITH US IN ROOM FOR THORACENTESIS. PT DENIES ANY NEEDS AT THIS TIME. PT VSS AND UPDATED IN EMR. PT HAS CALL LIGHT WITHIN REACH.
--- NOTE | 2019-10-29 23:48 | NUR ---
PT PROVIDED NEW URINAL. PT HAD APPROXIMATELY 1.5 LITERS DRAINED FROM THORACENTESIS. XRAY AT BS TO RESHOOT CHX AT THIS TIME.
[2019-10-30 01:04] VITALS: BP 161/77
--- NOTE | 2019-10-30 01:07 | NUR ---
PHONED FOR PT TRANSPORT HOME. PER , PT WILL BE PICKED UP IN APPROXIMATELY 20 MINS.
--- NOTE | 2019-10-30 01:24 | NUR ---
PT D/C WITH D/C SUMMARY AND SCRIPTS. ALL QUESTIONS ANSWERED. PT VSS AND UPDATED IN EMR. PT IV D/C WITH TIP INTACT. PT DENIES ANY OTHER NEEDS PERTAINING TO THIS VISIT AND WAS WHEELED TO PERSONAL VEHICLE WITH D/C HOME WITH HIS .
== END 2019-10-30 01:53 | disposition home or self-care (01) ==
LOC: ED 19:34
DX: I13.0 Hypertensive heart and chronic kidney disease with heart failure and stage 1 through stage 4 chronic kidney disease, or unspecified chronic kidney disease (principal); I50.1 Left ventricular failure, unspecified; N18.9 Chronic kidney disease, unspecified; J90 Pleural effusion, not elsewhere classified; R06.00 Dyspnea, unspecified; J43.9 Emphysema, unspecified; M19.90 Unspecified osteoarthritis, unspecified site; E78.5 Hyperlipidemia, unspecified; M10.9 Gout, unspecified; I25.2 Old myocardial infarction; E66.01 Morbid (severe) obesity due to excess calories; Z95.1 Presence of aortocoronary bypass graft
CPT/HCPCS: 32555; 36415; 71045; 80053; 83880; 84484; 85025; 93005; 99285; J3490

== ENCOUNTER 2019-11-29 22:15 | Inpatient (IN) | payer MEDICARE, OTHER ==
[~2019-11-29] VITALS: Ht 157.5 cm; Wt 104.1 kg
[2019-11-29] MEDS ORDERED: SODIUM CHLORIDE FLUSH 10ML SYR IVF ONE (22:30)
--- NOTE | 2019-11-29 22:48 | NUR ---
Patient BIB [facility] c/o low quad abd pain with abd distention. Patient had a fall x1 week ago and hit his abd on his oxygen tank on the way down. Patient also has SOB which is normal for him; it is not worse today. Patient is on O2 at home. Hx pleural effusion with a thoracentesis x1 month ago. Patient has slightly labored breathing, which he states is normal. Respirations even; LS clear and equal bilat. Abd distended. Scaly skin on bilat feet into calves. Patient states it has been there for years; no associated pain.
[2019-11-29 23:02] LABS: BASOPHILS # (AUTO) 0.02 x10^3/uL (0-0.1); BASOPHILS % (AUTO) 0 % (0-1); EOSINOPHILS # (AUTO) 0.04 x10^3/uL (0-0.4); EOSINOPHILS % (AUTO) 1 % (1-7); LYMPHOCYTES # (AUTO) 0.77 x10^3/uL (1-3.4); LYMPHOCYTES % (AUTO) 14 % (22-44); MD NO; MEAN CORPUSCULAR HEMOGLOBIN 30.1 pg (27.5-34.5); MEAN CORPUSCULAR HGB CONC 31.2 g/dL (33.2-36.2); MEAN CORPUSCULAR VOLUME 96.4 fL (81-97); MONOCYTES # (AUTO) 0.64 x10^3/uL (0.2-0.8); MONOCYTES % (AUTO) 12 % (2-9); NEUTROPHILS # (AUTO) 3.92 x10^3/uL (1.8-6.8); NEUTROPHILS % (AUTO) 73 % (42-75); PLATELET COUNT 176 x10^3/uL (130-400); RED BLOOD COUNT 3.27 x10^6/uL (4.38-5.82); RED CELL DISTRIBUTION WIDTH 16.5 % (9.4-14.8)
--- NOTE | 2019-11-29 23:09 | NUR ---
Patient to CT.
[2019-11-29 23:10] LABS: INTERNATIONAL NORMALIZED RATIO 1.01 (0.93-1.1); PROTHROMBIN TIME 10.7 Seconds (9.6-11.5)
[2019-11-29 23:12] LABS: ALBUMIN 2.6 g/dL (3.4-5.0); ANION GAP 2 mmol/L (5-15); CALCIUM 8.4 mg/dL (8.5-10.1); CHLORIDE 106 mmol/L (98-107)
[2019-11-29 23:17] LABS: ALANINE AMINOTRANSFERASE 11 U/L (12-78); ALKALINE PHOSPHATASE 39 U/L (45-117); BILIRUBIN,TOTAL 0.5 mg/dL (0.2-1.0); TROPONIN I 0.027 ng/mL (0.000-0.045)
--- NOTE | 2019-11-29 23:19 | NUR ---
PT BACK FROM CT
[2019-11-30] MEDS ORDERED: FUROSEMIDE 40 MG/4 ML IV ONE
--- NOTE | 2019-11-30 00:23 | NUR ---
break rn: pt repositioned in bed per request. denies any further needs or concerns at this time.
[2019-11-30] MEDS ORDERED: FUROSEMIDE 40 MG/4 ML ONE (00:59)
[2019-11-30 01:50] VITALS: BP 130/84
[2019-11-30] MEDS ORDERED: ACETAMINOPHEN 325 MG TABLET PO PRN (02:00)
[2019-11-30] MEDS ORDERED: ONDANSETRON 2MG/ML, 2ML IVPush PRN (02:00)
[2019-11-30] MEDS ORDERED: NITROGLYCERIN 0.4 MG BOTTLE (25 TABS) SL PRN (02:00)
[2019-11-30] MEDS ORDERED: LABETALOL 5MG/ML, 20ML IVPush PRN (02:00)
[2019-11-30] MEDS ORDERED: ALBUTEROL SULFATE 2.5 MG/3 ML NPPB PRN (03:00)
[2019-11-30 05:38] LABS: BASOPHILS # (AUTO) 0.01 x10^3/uL (0-0.1); BASOPHILS % (AUTO) 0 % (0-1); EOSINOPHILS # (AUTO) 0.06 x10^3/uL (0-0.4); EOSINOPHILS % (AUTO) 1 % (1-7); LYMPHOCYTES # (AUTO) 0.81 x10^3/uL (1-3.4); LYMPHOCYTES % (AUTO) 15 % (22-44); MD NO; MEAN CORPUSCULAR HEMOGLOBIN 30.5 pg (27.5-34.5); MEAN CORPUSCULAR HGB CONC 31.7 g/dL (33.2-36.2); MEAN CORPUSCULAR VOLUME 96.2 fL (81-97); MEAN PLATELET VOLUME 8.8 fL (7.4-10.4); MONOCYTES # (AUTO) 0.76 x10^3/uL (0.2-0.8); MONOCYTES % (AUTO) 14 % (2-9); NEUTROPHILS # (AUTO) 3.77 x10^3/uL (1.8-6.8); NEUTROPHILS % (AUTO) 70 % (42-75); PLATELET COUNT 171 x10^3/uL (130-400); RED BLOOD COUNT 3.31 x10^6/uL (4.38-5.82); RED CELL DISTRIBUTION WIDTH 15.5 % (9.4-14.8)
[2019-11-30 05:44] LABS: ANION GAP 5 mmol/L (5-15); CALCIUM 8.7 mg/dL (8.5-10.1); CHLORIDE 106 mmol/L (98-107); CREATININE 2.17 mg/dL (0.7-1.3)
[2019-11-30] MEDS: INSULIN LISPRO 100 UNITS/ML, PEN SQ-INSULIN SCH ×4 (07:00→22:33)
[2019-11-30 07:30] VITALS: BP 112/66
[2019-11-30] MEDS ORDERED: FLUOXETINE HCL 20 MG CAPSULE PO SCH (09:00)
[2019-11-30] MEDS ORDERED: SPIRONOLACTONE 50 MG TABLET PO SCH (09:00)
[2019-11-30] MEDS: FUROSEMIDE 40 MG/4 ML IV SCH ×2 (09:26→21:57)
[2019-11-30] MEDS: CHOLECALCIFEROL 5,000u TAB PO SCH (09:27)
[2019-11-30] MEDS: MULTIVITAMIN 1 TABLET PO SCH (09:27)
[2019-11-30] MEDS: FENOFIBRATE 145 MG TABLET PO SCH (09:27)
[2019-11-30] MEDS: ALLOPURINOL 100 MG TABLET PO SCH (09:27)
[2019-11-30] MEDS: CARVEDILOL 25 MG TABLET PO SCH ×2 (09:27→21:57)
[2019-11-30] MEDS ORDERED: LIDOCAINE 1%, 10ML ONE (10:06)
[2019-11-30 12:15] VITALS: BP 93/52
[2019-11-30] MEDS: MECLIZINE 25 MG TABLET PO SCH ×2 (13:11→21:57)
[2019-11-30 14:30] VITALS: BP 107/64
[2019-11-30 20:31] VITALS: BP 120/82
[2019-11-30] MEDS ORDERED: APIXABAN 2.5 MG TABLET PO SCH (21:00)
[2019-11-30] MEDS: APIXABAN 5 MG TABLET PO SCH (21:57)
[2019-11-30] MEDS: ATORVASTATIN 40 MG TABLET PO SCH (21:57)
[2019-12-01] VITALS: BP 93/60
[2019-12-01 05:09] LABS: BASOPHILS # (AUTO) 0.02 x10^3/uL (0-0.1); BASOPHILS % (AUTO) 0 % (0-1); EOSINOPHILS # (AUTO) 0.07 x10^3/uL (0-0.4); EOSINOPHILS % (AUTO) 2 % (1-7); LYMPHOCYTES # (AUTO) 0.91 x10^3/uL (1-3.4); LYMPHOCYTES % (AUTO) 22 % (22-44); MD NO; MEAN CORPUSCULAR HEMOGLOBIN 30.5 pg (27.5-34.5); MEAN CORPUSCULAR HGB CONC 31.6 g/dL (33.2-36.2); MEAN CORPUSCULAR VOLUME 96.5 fL (81-97); MEAN PLATELET VOLUME 9.2 fL (7.4-10.4); MONOCYTES # (AUTO) 0.69 x10^3/uL (0.2-0.8); MONOCYTES % (AUTO) 16 % (2-9); NEUTROPHILS # (AUTO) 2.55 x10^3/uL (1.8-6.8); NEUTROPHILS % (AUTO) 60 % (42-75); PLATELET COUNT 171 x10^3/uL (130-400); RED BLOOD COUNT 3.11 x10^6/uL (4.38-5.82); RED CELL DISTRIBUTION WIDTH 15.7 % (9.4-14.8)
[2019-12-01 05:16] LABS: ALANINE AMINOTRANSFERASE 12 U/L (12-78); ALBUMIN 2.7 g/dL (3.4-5.0); ANION GAP 8 mmol/L (5-15); CALCIUM 8.4 mg/dL (8.5-10.1); CHLORIDE 103 mmol/L (98-107)
[2019-12-01 05:18] LABS: ALKALINE PHOSPHATASE 38 U/L (45-117); BILIRUBIN,TOTAL 0.5 mg/dL (0.2-1.0); TOTAL PROTEIN 7.1 g/dL (6.4-8.2)
[2019-12-01] MEDS: ASPIRIN 81 MG TABLET EC PO SCH (06:30)
[2019-12-01] MEDS: INSULIN LISPRO 100 UNITS/ML, PEN SQ-INSULIN SCH ×4 (07:58→21:00)
[2019-12-01 08:56] VITALS: BP 98/62
[2019-12-01] MEDS: FLUOXETINE 10 MG CAP PO SCH (08:58)
[2019-12-01] MEDS: FENOFIBRATE 145 MG TABLET PO SCH (08:58)
[2019-12-01] MEDS: APIXABAN 5 MG TABLET PO SCH ×2 (08:58→21:27)
[2019-12-01] MEDS: ALLOPURINOL 100 MG TABLET PO SCH (08:58)
[2019-12-01] MEDS: MECLIZINE 25 MG TABLET PO SCH (08:58)
[2019-12-01] MEDS: CARVEDILOL 25 MG TABLET PO SCH (08:58)
[2019-12-01] MEDS: CHOLECALCIFEROL 5,000u TAB PO SCH (08:58)
[2019-12-01] MEDS: MULTIVITAMIN 1 TABLET PO SCH (08:58)
[2019-12-01] MEDS ORDERED: FUROSEMIDE 40 MG/4 ML IV SCH (09:00)
[2019-12-01] MEDS: CEFTRIAXONE PMX 1GM/50ML 50 ML IV SCH (09:18)
[2019-12-01 16:47] VITALS: BP 85/50
[2019-12-01] MEDS ORDERED: MECLIZINE 25 MG TABLET PO PRN (17:00)
[2019-12-01 18:56] VITALS: BP 91/59
[2019-12-01] MEDS: CARVEDILOL 12.5 MG TABLET PO SCH (21:00)
[2019-12-01] MEDS: ATORVASTATIN 40 MG TABLET PO SCH (21:28)
[2019-12-02 00:21] VITALS: BP 112/70
[2019-12-02 05:36] LABS: BASOPHILS # (AUTO) 0.06 x10^3/uL (0-0.1); BASOPHILS % (AUTO) 1 % (0-1); EOSINOPHILS # (AUTO) 0.06 x10^3/uL (0-0.4); EOSINOPHILS % (AUTO) 1 % (1-7); LYMPHOCYTES # (AUTO) 0.98 x10^3/uL (1-3.4); LYMPHOCYTES % (AUTO) 18 % (22-44); MD NO; MEAN CORPUSCULAR HEMOGLOBIN 30.7 pg (27.5-34.5); MEAN CORPUSCULAR HGB CONC 32.2 g/dL (33.2-36.2); MEAN CORPUSCULAR VOLUME 95.4 fL (81-97); MEAN PLATELET VOLUME 9.6 fL (7.4-10.4); MONOCYTES # (AUTO) 0.81 x10^3/uL (0.2-0.8); MONOCYTES % (AUTO) 15 % (2-9); NEUTROPHILS # (AUTO) 3.58 x10^3/uL (1.8-6.8); NEUTROPHILS % (AUTO) 65 % (42-75); PLATELET COUNT 173 x10^3/uL (130-400); RED BLOOD COUNT 3.18 x10^6/uL (4.38-5.82); RED CELL DISTRIBUTION WIDTH 15.7 % (9.4-14.8)
[2019-12-02 05:39] LABS: ALANINE AMINOTRANSFERASE 75 U/L (12-78); ALBUMIN 2.7 g/dL (3.4-5.0); ANION GAP 5 mmol/L (5-15); CALCIUM 8.5 mg/dL (8.5-10.1); CHLORIDE 101 mmol/L (98-107)
[2019-12-02 05:42] LABS: ALKALINE PHOSPHATASE 41 U/L (45-117); BILIRUBIN,TOTAL 0.7 mg/dL (0.2-1.0); CREATININE 3.25 mg/dL (0.7-1.3); TOTAL PROTEIN 6.9 g/dL (6.4-8.2)
[2019-12-02] MEDS: ASPIRIN 81 MG TABLET EC PO SCH (06:17)
[2019-12-02 06:57] VITALS: BP 94/60
[2019-12-02] MEDS: INSULIN LISPRO 100 UNITS/ML, PEN SQ-INSULIN SCH ×4 (07:00→21:32)
[2019-12-02] MEDS ORDERED: SODIUM ZIRCONIUM CYCLOSILICATE 10 GM PO ONE ×2 (07:00→10:30)
[2019-12-02 07:59] LABS: INTERNATIONAL NORMALIZED RATIO 1.08 (0.93-1.1); PROTHROMBIN TIME 11.5 Seconds (9.6-11.5)
[2019-12-02] MEDS: FLUOXETINE 10 MG CAP PO SCH (08:17)
[2019-12-02] MEDS: ALLOPURINOL 100 MG TABLET PO SCH (08:17)
[2019-12-02] MEDS: CHOLECALCIFEROL 5,000u TAB PO SCH (08:17)
[2019-12-02] MEDS: MULTIVITAMIN 1 TABLET PO SCH (08:17)
[2019-12-02] MEDS: APIXABAN 5 MG TABLET PO SCH ×2 (08:17→21:31)
[2019-12-02] MEDS: FENOFIBRATE 145 MG TABLET PO SCH (08:17)
[2019-12-02] MEDS: CARVEDILOL 12.5 MG TABLET PO SCH ×2 (08:18→21:31)
[2019-12-02] MEDS ORDERED: FUROSEMIDE 40 MG/4 ML IV SCH (09:00)
[2019-12-02] MEDS ORDERED: FUROSEMIDE 40 MG/4 ML IV ONE (09:00)
[2019-12-02] MEDS: CEFTRIAXONE PMX 1GM/50ML 50 ML IV SCH (09:20)
[2019-12-02] MEDS: ALBUMIN HUMAN 25% 100 ML IV SCH ×3 (10:49→20:49)
[2019-12-02 12:20] VITALS: BP 141/83
[2019-12-02 19:45] VITALS: BP 103/53
[2019-12-02] MEDS ORDERED: FUROSEMIDE 100 MG/10 ML IV SCH (21:00)
[2019-12-02] MEDS ORDERED: FUROSEMIDE 40 MG/4 ML ONE (21:24)
[2019-12-02] MEDS: ATORVASTATIN 40 MG TABLET PO SCH (21:31)
[2019-12-03 01:01] VITALS: BP 99/55
[2019-12-03] MEDS: ALBUMIN HUMAN 25% 100 ML IV SCH ×2 (03:07→08:32)
[2019-12-03 05:35] LABS: BASOPHILS # (AUTO) 0.01 x10^3/uL (0-0.1); BASOPHILS % (AUTO) 0 % (0-1); EOSINOPHILS # (AUTO) 0.05 x10^3/uL (0-0.4); EOSINOPHILS % (AUTO) 1 % (1-7); LYMPHOCYTES # (AUTO) 0.57 x10^3/uL (1-3.4); LYMPHOCYTES % (AUTO) 12 % (22-44); MD NO; MEAN CORPUSCULAR HEMOGLOBIN 30.5 pg (27.5-34.5); MEAN CORPUSCULAR HGB CONC 31.4 g/dL (33.2-36.2); MEAN PLATELET VOLUME 9.4 fL (7.4-10.4); MONOCYTES % (AUTO) 14 % (2-9); NEUTROPHILS % (AUTO) 72 % (42-75); PLATELET COUNT 167 x10^3/uL (130-400); RED BLOOD COUNT 3.04 x10^6/uL (4.38-5.82); RED CELL DISTRIBUTION WIDTH 15.4 % (9.4-14.8)
[2019-12-03 05:42] LABS: ALBUMIN 3.6 g/dL (3.4-5.0); ANION GAP 12 mmol/L (5-15); CALCIUM 8.3 mg/dL (8.5-10.1); CHLORIDE 100 mmol/L (98-107)
[2019-12-03 05:45] LABS: ALANINE AMINOTRANSFERASE 62 U/L (12-78); ALKALINE PHOSPHATASE 35 U/L (45-117); BILIRUBIN,TOTAL 0.8 mg/dL (0.2-1.0); CREATININE 3.23 mg/dL (0.7-1.3); TOTAL PROTEIN 7.2 g/dL (6.4-8.2)
[2019-12-03] MEDS: ASPIRIN 81 MG TABLET EC PO SCH (06:25)
[2019-12-03] MEDS: CEFTRIAXONE PMX 1GM/50ML 50 ML IV SCH (06:25)
[2019-12-03] MEDS: INSULIN LISPRO 100 UNITS/ML, PEN SQ-INSULIN SCH ×4 (07:00→19:53)
[2019-12-03 07:02] VITALS: BP 133/82
[2019-12-03] MEDS: CARVEDILOL 12.5 MG TABLET PO SCH ×2 (08:32→20:22)
[2019-12-03] MEDS: APIXABAN 5 MG TABLET PO SCH ×2 (08:32→20:22)
[2019-12-03] MEDS: ALLOPURINOL 100 MG TABLET PO SCH (08:32)
[2019-12-03] MEDS: FENOFIBRATE 145 MG TABLET PO SCH (08:32)
[2019-12-03] MEDS: FLUOXETINE 10 MG CAP PO SCH (08:32)
[2019-12-03] MEDS: MULTIVITAMIN 1 TABLET PO SCH (08:32)
[2019-12-03] MEDS: CHOLECALCIFEROL 5,000u TAB PO SCH (08:32)
[2019-12-03 10:19] LABS: O2 FLOW 4 L/min
[2019-12-03] MEDS ORDERED: FUROSEMIDE 40 MG/4 ML IV ONE (10:30)
[2019-12-03] MEDS ORDERED: FUROSEMIDE IV SCH (10:30)
[2019-12-03] MEDS ORDERED: SODIUM CHLORIDE 0.9% IV SCH (10:30)
[2019-12-03] MEDS: FUROSEMIDE 100 MG in SODIUM CHLORIDE 0.9% 90 ML IV PRN (11:01)
[2019-12-03] MEDS ORDERED: LIDOCAINE 1%, 10ML ONE (12:42)
[2019-12-03 13:54] VITALS: BP 95/60
[2019-12-03 16:05] LABS: ALBUMIN 3.7 g/dL (3.4-5.0); ANION GAP 10 mmol/L (5-15); CALCIUM 8.4 mg/dL (8.5-10.1); CHLORIDE 101 mmol/L (98-107); CREATININE 3.16 mg/dL (0.7-1.3)
[2019-12-03 19:17] VITALS: BP 113/70
[2019-12-03] MEDS: ATORVASTATIN 40 MG TABLET PO SCH (20:22)
[2019-12-04 01:40] VITALS: BP 122/81
[2019-12-04] MEDS: FUROSEMIDE 100 MG in SODIUM CHLORIDE 0.9% 90 ML IV PRN ×2 (04:21→19:31)
[2019-12-04] MEDS: ASPIRIN 81 MG TABLET EC PO SCH (06:23)
[2019-12-04] MEDS: CEFTRIAXONE PMX 1GM/50ML 50 ML IV SCH (06:30)
[2019-12-04 06:52] VITALS: BP 117/70
[2019-12-04] MEDS: INSULIN LISPRO 100 UNITS/ML, PEN SQ-INSULIN SCH ×4 (07:00→20:17)
[2019-12-04 07:58] LABS: % IRON SATURATION 10 % (20-55); ALANINE AMINOTRANSFERASE 53 U/L (12-78); ALBUMIN 3.3 g/dL (3.4-5.0); ANION GAP 9 mmol/L (5-15); CALCIUM 8.1 mg/dL (8.5-10.1); CHLORIDE 100 mmol/L (98-107); CREATININE 3.15 mg/dL (0.7-1.3); IRON LEVEL 27 mcg/dL (65-175); TOTAL IRON BINDING CAPACITY 273 mcg/dL (250-450)
[2019-12-04 08:01] LABS: ALKALINE PHOSPHATASE 31 U/L (45-117); BILIRUBIN,TOTAL 0.7 mg/dL (0.2-1.0); TOTAL PROTEIN 6.7 g/dL (6.4-8.2)
[2019-12-04] MEDS: FENOFIBRATE 145 MG TABLET PO SCH (08:23)
[2019-12-04] MEDS: FLUOXETINE 10 MG CAP PO SCH (08:23)
[2019-12-04] MEDS: APIXABAN 5 MG TABLET PO SCH ×2 (08:23→20:03)
[2019-12-04] MEDS: MULTIVITAMIN 1 TABLET PO SCH (08:23)
[2019-12-04] MEDS: CARVEDILOL 12.5 MG TABLET PO SCH ×2 (08:23→20:04)
[2019-12-04] MEDS: ALLOPURINOL 100 MG TABLET PO SCH (08:23)
[2019-12-04] MEDS: CHOLECALCIFEROL 5,000u TAB PO SCH (08:23)
[2019-12-04] MEDS: METOLAZONE 5 MG TABLET PO SCH (11:41)
[2019-12-04] MEDS: IRON SUCROSE COMPLEX 100MG/5ML IV SCH (11:41)
[2019-12-04 12:20] VITALS: BP 117/68
[2019-12-04 19:32] VITALS: BP 103/54
[2019-12-04] MEDS: ATORVASTATIN 40 MG TABLET PO SCH (20:04)
[2019-12-05 02:10] VITALS: BP 109/57
[2019-12-05 05:13] LABS: BASOPHILS # (AUTO) 0.01 x10^3/uL (0-0.1); BASOPHILS % (AUTO) 0 % (0-1); EOSINOPHILS # (AUTO) 0.06 x10^3/uL (0-0.4); EOSINOPHILS % (AUTO) 1 % (1-7); LYMPHOCYTES # (AUTO) 0.53 x10^3/uL (1-3.4); LYMPHOCYTES % (AUTO) 12 % (22-44); MD NO; MEAN CORPUSCULAR HEMOGLOBIN 30.4 pg (27.5-34.5); MEAN CORPUSCULAR HGB CONC 32.2 g/dL (33.2-36.2); MEAN CORPUSCULAR VOLUME 94.6 fL (81-97); MEAN PLATELET VOLUME 9.2 fL (7.4-10.4); MONOCYTES # (AUTO) 0.78 x10^3/uL (0.2-0.8); MONOCYTES % (AUTO) 18 % (2-9); NEUTROPHILS # (AUTO) 2.95 x10^3/uL (1.8-6.8); NEUTROPHILS % (AUTO) 68 % (42-75); PLATELET COUNT 153 x10^3/uL (130-400); RED BLOOD COUNT 3.01 x10^6/uL (4.38-5.82); RED CELL DISTRIBUTION WIDTH 15.7 % (9.4-14.8)
[2019-12-05] MEDS: ASPIRIN 81 MG TABLET EC PO SCH (05:41)
[2019-12-05] MEDS: FUROSEMIDE 100 MG in SODIUM CHLORIDE 0.9% 90 ML IV PRN ×3 (05:59→23:43)
[2019-12-05] MEDS: INSULIN LISPRO 100 UNITS/ML, PEN SQ-INSULIN SCH ×4 (07:58→22:03)
[2019-12-05] MEDS: METOLAZONE 5 MG TABLET PO SCH (07:59)
[2019-12-05] MEDS: CEFTRIAXONE PMX 1GM/50ML 50 ML IV SCH (08:00)
[2019-12-05 08:53] VITALS: BP 121/65
[2019-12-05] MEDS: FLUOXETINE 10 MG CAP PO SCH (09:17)
[2019-12-05] MEDS: APIXABAN 5 MG TABLET PO SCH ×2 (09:17→21:52)
[2019-12-05] MEDS: ALLOPURINOL 100 MG TABLET PO SCH (09:18)
[2019-12-05] MEDS: CHOLECALCIFEROL 5,000u TAB PO SCH (09:18)
[2019-12-05] MEDS: FENOFIBRATE 145 MG TABLET PO SCH (09:18)
[2019-12-05] MEDS: CARVEDILOL 12.5 MG TABLET PO SCH ×2 (09:18→21:52)
[2019-12-05] MEDS: MULTIVITAMIN 1 TABLET PO SCH (09:18)
[2019-12-05 10:31] LABS: ANION GAP 9 mmol/L (5-15); CHLORIDE 100 mmol/L (98-107); CREATININE 3.12 mg/dL (0.7-1.3)
[2019-12-05] MEDS ORDERED: FUROSEMIDE 40 MG/4 ML IV ONE (11:30)
[2019-12-05 11:42] VITALS: BP 111/70
[2019-12-05] MEDS: IRON SUCROSE COMPLEX 100MG/5ML IV SCH (11:48)
[2019-12-05 13:48] VITALS: BP 109/62
[2019-12-05 18:48] VITALS: BP 94/55
[2019-12-05] MEDS: ATORVASTATIN 40 MG TABLET PO SCH (21:52)
[2019-12-06 01:36] VITALS: BP 112/66
[2019-12-06 05:03] LABS: BASOPHILS # (AUTO) 0.01 x10^3/uL (0-0.1); BASOPHILS % (AUTO) 0 % (0-1); EOSINOPHILS # (AUTO) 0.06 x10^3/uL (0-0.4); EOSINOPHILS % (AUTO) 1 % (1-7); LYMPHOCYTES # (AUTO) 0.56 x10^3/uL (1-3.4); LYMPHOCYTES % (AUTO) 13 % (22-44); MD NO; MEAN CORPUSCULAR HEMOGLOBIN 30.9 pg (27.5-34.5); MEAN CORPUSCULAR HGB CONC 32.4 g/dL (33.2-36.2); MEAN CORPUSCULAR VOLUME 95.4 fL (81-97); MONOCYTES # (AUTO) 0.74 x10^3/uL (0.2-0.8); MONOCYTES % (AUTO) 17 % (2-9); NEUTROPHILS # (AUTO) 2.97 x10^3/uL (1.8-6.8); NEUTROPHILS % (AUTO) 69 % (42-75); PLATELET COUNT 154 x10^3/uL (130-400); RED BLOOD COUNT 3.05 x10^6/uL (4.38-5.82); RED CELL DISTRIBUTION WIDTH 16.1 % (9.4-14.8)
[2019-12-06 05:13] LABS: ALANINE AMINOTRANSFERASE 44 U/L (12-78); ALBUMIN 3.1 g/dL (3.4-5.0); ANION GAP 9 mmol/L (5-15); CALCIUM 8.2 mg/dL (8.5-10.1); CHLORIDE 98 mmol/L (98-107); CREATININE 3.23 mg/dL (0.7-1.3)
[2019-12-06 05:16] LABS: ALKALINE PHOSPHATASE 28 U/L (45-117); BILIRUBIN,TOTAL 0.5 mg/dL (0.2-1.0); TOTAL PROTEIN 6.7 g/dL (6.4-8.2)
[2019-12-06] MEDS: ASPIRIN 81 MG TABLET EC PO SCH (06:18)
[2019-12-06] MEDS: INSULIN LISPRO 100 UNITS/ML, PEN SQ-INSULIN SCH ×4 (07:00→21:22)
[2019-12-06 07:20] VITALS: BP 116/68
[2019-12-06] MEDS: CEFTRIAXONE PMX 1GM/50ML 50 ML IV SCH (07:37)
[2019-12-06] MEDS: METOLAZONE 5 MG TABLET PO SCH (07:50)
[2019-12-06] MEDS: FUROSEMIDE 100 MG in SODIUM CHLORIDE 0.9% 90 ML IV PRN ×2 (07:50→16:33)
[2019-12-06] MEDS: CARVEDILOL 12.5 MG TABLET PO SCH ×2 (09:00→21:13)
[2019-12-06] MEDS: ALLOPURINOL 100 MG TABLET PO SCH (09:14)
[2019-12-06] MEDS: IRON SUCROSE COMPLEX 100MG/5ML IV SCH (09:14)
[2019-12-06] MEDS: MULTIVITAMIN 1 TABLET PO SCH (09:15)
[2019-12-06] MEDS: CHOLECALCIFEROL 5,000u TAB PO SCH (09:15)
[2019-12-06] MEDS: FENOFIBRATE 145 MG TABLET PO SCH (09:15)
[2019-12-06] MEDS: FLUOXETINE 10 MG CAP PO SCH (09:15)
[2019-12-06] MEDS: APIXABAN 5 MG TABLET PO SCH ×2 (09:15→21:13)
[2019-12-06 13:49] VITALS: BP 128/71
[2019-12-06 19:45] VITALS: BP 112/74
[2019-12-06] MEDS: ATORVASTATIN 40 MG TABLET PO SCH (21:12)
[2019-12-07] MEDS: FUROSEMIDE 100 MG in SODIUM CHLORIDE 0.9% 90 ML IV PRN ×3 (01:40→18:36)
[2019-12-07 01:44] VITALS: BP 106/71
[2019-12-07 04:20] LABS: ALBUMIN 3.1 g/dL (3.4-5.0); ANION GAP 8 mmol/L (5-15); CALCIUM 8.5 mg/dL (8.5-10.1); CHLORIDE 97 mmol/L (98-107)
[2019-12-07 04:21] LABS: CREATININE 3.42 mg/dL (0.7-1.3)
[2019-12-07] MEDS: ASPIRIN 81 MG TABLET EC PO SCH (05:48)
[2019-12-07 06:58] VITALS: BP 109/67
[2019-12-07] MEDS: INSULIN LISPRO 100 UNITS/ML, PEN SQ-INSULIN SCH ×4 (07:00→20:38)
[2019-12-07] MEDS: METOLAZONE 5 MG TABLET PO SCH (07:12)
[2019-12-07] MEDS: CEFTRIAXONE PMX 1GM/50ML 50 ML IV SCH (07:12)
[2019-12-07] MEDS: APIXABAN 5 MG TABLET PO SCH ×2 (08:49→20:37)
[2019-12-07] MEDS: IRON SUCROSE COMPLEX 100MG/5ML IV SCH (08:49)
[2019-12-07] MEDS: MULTIVITAMIN 1 TABLET PO SCH (08:49)
[2019-12-07] MEDS: ALLOPURINOL 100 MG TABLET PO SCH (08:50)
[2019-12-07] MEDS: FLUOXETINE 10 MG CAP PO SCH (08:50)
[2019-12-07] MEDS: CARVEDILOL 12.5 MG TABLET PO SCH ×2 (08:50→20:37)
[2019-12-07] MEDS: CHOLECALCIFEROL 5,000u TAB PO SCH (08:50)
[2019-12-07] MEDS: FENOFIBRATE 145 MG TABLET PO SCH (08:50)
[2019-12-07 14:25] VITALS: BP 105/65
[2019-12-07 20:30] VITALS: BP 107/65
[2019-12-07] MEDS: ATORVASTATIN 40 MG TABLET PO SCH (20:37)
[2019-12-08 00:47] VITALS: BP 111/51
[2019-12-08 05:03] LABS: BASOPHILS # (AUTO) 0.01 x10^3/uL (0-0.1); BASOPHILS % (AUTO) 0 % (0-1); EOSINOPHILS # (AUTO) 0.06 x10^3/uL (0-0.4); EOSINOPHILS % (AUTO) 1 % (1-7); LYMPHOCYTES # (AUTO) 0.54 x10^3/uL (1-3.4); LYMPHOCYTES % (AUTO) 12 % (22-44); MD NO; MEAN CORPUSCULAR HEMOGLOBIN 30.6 pg (27.5-34.5); MEAN CORPUSCULAR HGB CONC 31.8 g/dL (33.2-36.2); MEAN PLATELET VOLUME 8.9 fL (7.4-10.4); MONOCYTES # (AUTO) 0.72 x10^3/uL (0.2-0.8); MONOCYTES % (AUTO) 16 % (2-9); NEUTROPHILS # (AUTO) 3.15 x10^3/uL (1.8-6.8); NEUTROPHILS % (AUTO) 70 % (42-75); PLATELET COUNT 158 x10^3/uL (130-400); RED BLOOD COUNT 3.09 x10^6/uL (4.38-5.82); RED CELL DISTRIBUTION WIDTH 16.1 % (9.4-14.8)
[2019-12-08 05:10] LABS: CHLORIDE 96 mmol/L (98-107)
[2019-12-08 05:20] LABS: ALBUMIN 3.1 g/dL (3.4-5.0); ANION GAP 12 mmol/L (5-15); CALCIUM 8.6 mg/dL (8.5-10.1); CREATININE 3.57 mg/dL (0.7-1.3)
[2019-12-08] MEDS: INSULIN LISPRO 100 UNITS/ML, PEN SQ-INSULIN SCH ×4 (07:00→21:00)
[2019-12-08 07:10] VITALS: BP 104/66
[2019-12-08 10:00] VITALS: BP 121/75
[2019-12-08] MEDS: CEFTRIAXONE PMX 1GM/50ML 50 ML IV SCH (10:00)
[2019-12-08] MEDS: IRON SUCROSE COMPLEX 100MG/5ML IV SCH (10:02)
[2019-12-08] MEDS: APIXABAN 5 MG TABLET PO SCH ×2 (10:03→21:59)
[2019-12-08] MEDS: FENOFIBRATE 145 MG TABLET PO SCH (10:03)
[2019-12-08] MEDS: ALLOPURINOL 100 MG TABLET PO SCH (10:03)
[2019-12-08] MEDS: MULTIVITAMIN 1 TABLET PO SCH (10:03)
[2019-12-08] MEDS: METOLAZONE 5 MG TABLET PO SCH (10:03)
[2019-12-08] MEDS: ASPIRIN 81 MG TABLET EC PO SCH (10:04)
[2019-12-08] MEDS: CARVEDILOL 12.5 MG TABLET PO SCH ×2 (10:06→21:59)
[2019-12-08] MEDS: CHOLECALCIFEROL 5,000u TAB PO SCH (10:06)
[2019-12-08] MEDS: FLUOXETINE 10 MG CAP PO SCH (10:19)
[2019-12-08] MEDS: FUROSEMIDE 20 MG/2 ML IV SCH ×3 (11:58→22:00)
[2019-12-08] MEDS ORDERED: POTASSIUM CHLORIDE 20 MEQ TAB.ER.PRT PO ONE (12:00)
[2019-12-08 12:16] VITALS: BP 112/57
[2019-12-08] MEDS ORDERED: MAGNESIUM SULFATE PMX 2GM/50ML 50 ML IV ONE (13:00)
[2019-12-08] MEDS ORDERED: POLYETHYLENE GLYCOL 17 GM PACKET ONE (13:37)
[2019-12-08] MEDS ORDERED: DOCUSATE 100 MG CAPSULE PO PRN (14:00)
[2019-12-08 14:10] VITALS: BP 111/62
[2019-12-08 19:20] VITALS: BP 111/64
[2019-12-08] MEDS: POLYETHYLENE GLYCOL 17 GM PACKET PO SCH (21:00)
[2019-12-08] MEDS ORDERED: POLYETHYLENE GLYCOL 17 GM PACKET NG SCH (21:00)
[2019-12-08] MEDS: ATORVASTATIN 40 MG TABLET PO SCH (21:59)
[2019-12-09 01:36] VITALS: BP 126/64
[2019-12-09 06:03] LABS: BASOPHILS # (AUTO) 0.01 x10^3/uL (0-0.1); BASOPHILS % (AUTO) 0 % (0-1); EOSINOPHILS # (AUTO) 0.08 x10^3/uL (0-0.4); EOSINOPHILS % (AUTO) 2 % (1-7); LYMPHOCYTES # (AUTO) 0.53 x10^3/uL (1-3.4); LYMPHOCYTES % (AUTO) 13 % (22-44); MD NO; MEAN CORPUSCULAR HGB CONC 32.4 g/dL (33.2-36.2); MEAN CORPUSCULAR VOLUME 95.9 fL (81-97); MEAN PLATELET VOLUME 9.3 fL (7.4-10.4); MONOCYTES # (AUTO) 0.66 x10^3/uL (0.2-0.8); MONOCYTES % (AUTO) 17 % (2-9); NEUTROPHILS % (AUTO) 68 % (42-75); PLATELET COUNT 151 x10^3/uL (130-400); RED BLOOD COUNT 3.06 x10^6/uL (4.38-5.82)
[2019-12-09 06:15] LABS: CALCIUM 8.5 mg/dL (8.5-10.1); CHLORIDE 95 mmol/L (98-107)
[2019-12-09 06:18] LABS: ANION GAP 10 mmol/L (5-15); CREATININE 3.83 mg/dL (0.7-1.3)
[2019-12-09] MEDS: FUROSEMIDE 20 MG/2 ML IV SCH (06:33)
[2019-12-09 06:45] VITALS: BP 130/73
[2019-12-09] MEDS: INSULIN LISPRO 100 UNITS/ML, PEN SQ-INSULIN SCH ×4 (07:40→20:32)
[2019-12-09] MEDS ORDERED: POTASSIUM CHLORIDE 10% 20 MEQ/15 ML UDC PO SCH (09:00)
[2019-12-09] MEDS: MULTIVITAMIN 1 TABLET PO SCH (10:11)
[2019-12-09] MEDS: FENOFIBRATE 145 MG TABLET PO SCH (10:11)
[2019-12-09] MEDS: POTASSIUM CHLORIDE 10 MEQ TABLET.ER PO SCH ×2 (10:11→20:31)
[2019-12-09] MEDS: APIXABAN 5 MG TABLET PO SCH ×2 (10:11→20:31)
[2019-12-09] MEDS: FLUOXETINE 10 MG CAP PO SCH (10:11)
[2019-12-09] MEDS: CHOLECALCIFEROL 5,000u TAB PO SCH (10:11)
[2019-12-09] MEDS: FUROSEMIDE 80 MG TABLET PO SCH ×2 (10:11→20:31)
[2019-12-09] MEDS: ALLOPURINOL 100 MG TABLET PO SCH (10:11)
[2019-12-09] MEDS: CARVEDILOL 12.5 MG TABLET PO SCH ×2 (10:11→20:31)
[2019-12-09] MEDS: POLYETHYLENE GLYCOL 17 GM PACKET PO SCH ×2 (10:12→20:34)
[2019-12-09] MEDS: ASPIRIN 81 MG TABLET EC PO SCH (10:12)
[2019-12-09 12:23] VITALS: BP 136/81
[2019-12-09 19:26] VITALS: BP 112/61
[2019-12-09] MEDS: ATORVASTATIN 40 MG TABLET PO SCH (20:31)
[2019-12-10 01:26] VITALS: BP 127/72
[2019-12-10 05:06] LABS: ALBUMIN 3.3 g/dL (3.4-5.0); ANION GAP 13 mmol/L (5-15); CALCIUM 8.6 mg/dL (8.5-10.1); CHLORIDE 92 mmol/L (98-107)
[2019-12-10 05:07] LABS: CREATININE 4.17 mg/dL (0.7-1.3)
[2019-12-10 05:13] LABS: BASOPHILS # (AUTO) 0.02 x10^3/uL (0-0.1); BASOPHILS % (AUTO) 0 % (0-1); EOSINOPHILS # (AUTO) 0.11 x10^3/uL (0-0.4); EOSINOPHILS % (AUTO) 3 % (1-7); LYMPHOCYTES # (AUTO) 0.67 x10^3/uL (1-3.4); LYMPHOCYTES % (AUTO) 16 % (22-44); MD NO; MEAN CORPUSCULAR HEMOGLOBIN 30.7 pg (27.5-34.5); MEAN CORPUSCULAR HGB CONC 31.7 g/dL (33.2-36.2); MEAN CORPUSCULAR VOLUME 96.9 fL (81-97); MONOCYTES # (AUTO) 0.74 x10^3/uL (0.2-0.8); MONOCYTES % (AUTO) 17 % (2-9); NEUTROPHILS # (AUTO) 2.71 x10^3/uL (1.8-6.8); NEUTROPHILS % (AUTO) 64 % (42-75); PLATELET COUNT 161 x10^3/uL (130-400); RED CELL DISTRIBUTION WIDTH 16.3 % (9.4-14.8)
[2019-12-10 06:40] VITALS: BP 131/80
[2019-12-10] MEDS: INSULIN LISPRO 100 UNITS/ML, PEN SQ-INSULIN SCH ×4 (07:10→21:18)
[2019-12-10] MEDS: POLYETHYLENE GLYCOL 17 GM PACKET PO SCH ×2 (09:58→21:00)
[2019-12-10] MEDS: POTASSIUM CHLORIDE 10 MEQ TABLET.ER PO SCH ×2 (10:04→21:18)
[2019-12-10] MEDS: MULTIVITAMIN 1 TABLET PO SCH (10:04)
[2019-12-10] MEDS: CARVEDILOL 12.5 MG TABLET PO SCH ×2 (10:04→21:00)
[2019-12-10] MEDS: ALLOPURINOL 100 MG TABLET PO SCH (10:04)
[2019-12-10] MEDS: FLUOXETINE 10 MG CAP PO SCH (10:04)
[2019-12-10] MEDS: CHOLECALCIFEROL 5,000u TAB PO SCH (10:04)
[2019-12-10] MEDS: FENOFIBRATE 145 MG TABLET PO SCH (10:04)
[2019-12-10] MEDS: ASPIRIN 81 MG TABLET EC PO SCH (10:04)
[2019-12-10] MEDS: FUROSEMIDE 80 MG TABLET PO SCH ×2 (10:05→21:19)
[2019-12-10] MEDS: APIXABAN 5 MG TABLET PO SCH ×2 (10:05→21:18)
[2019-12-10 12:17] VITALS: BP 134/78
[2019-12-10 21:06] VITALS: BP 109/60
[2019-12-10] MEDS: ATORVASTATIN 40 MG TABLET PO SCH (21:18)
[2019-12-11 01:24] VITALS: BP 127/72
[2019-12-11 05:24] LABS: ANION GAP 13 mmol/L (5-15); CALCIUM 8.7 mg/dL (8.5-10.1); CHLORIDE 91 mmol/L (98-107); CREATININE 4.35 mg/dL (0.7-1.3)
[2019-12-11 06:42] VITALS: BP 120/74
[2019-12-11] MEDS: INSULIN LISPRO 100 UNITS/ML, PEN SQ-INSULIN SCH ×4 (07:00→20:40)
[2019-12-11] MEDS: ALLOPURINOL 100 MG TABLET PO SCH (08:56)
[2019-12-11] MEDS: ASPIRIN 81 MG TABLET EC PO SCH (08:56)
[2019-12-11] MEDS: APIXABAN 5 MG TABLET PO SCH (08:56)
[2019-12-11] MEDS: CHOLECALCIFEROL 5,000u TAB PO SCH (08:56)
[2019-12-11] MEDS: FUROSEMIDE 80 MG TABLET PO SCH ×2 (08:56→20:41)
[2019-12-11] MEDS: MULTIVITAMIN 1 TABLET PO SCH (08:56)
[2019-12-11] MEDS: POTASSIUM CHLORIDE 10 MEQ TABLET.ER PO SCH ×2 (08:56→20:40)
[2019-12-11] MEDS: FENOFIBRATE 145 MG TABLET PO SCH (08:57)
[2019-12-11] MEDS: FLUOXETINE 10 MG CAP PO SCH (08:57)
[2019-12-11] MEDS: CARVEDILOL 12.5 MG TABLET PO SCH ×3 (08:57→21:00)
[2019-12-11] MEDS: POLYETHYLENE GLYCOL 17 GM PACKET PO SCH ×2 (08:57→20:43)
[2019-12-11 12:45] VITALS: BP 125/75
[2019-12-11 18:23] VITALS: BP 97/57
[2019-12-11] MEDS: ATORVASTATIN 40 MG TABLET PO SCH (20:41)
[2019-12-11 21:00] VITALS: BP 134/80
[2019-12-12 00:16] VITALS: BP 120/80
[2019-12-12 06:37] VITALS: BP 115/63
[2019-12-12] MEDS: INSULIN LISPRO 100 UNITS/ML, PEN SQ-INSULIN SCH ×2 (07:00→11:00)
[2019-12-12 07:53] LABS: ANION GAP 11 mmol/L (5-15); CALCIUM 8.7 mg/dL (8.5-10.1); CHLORIDE 92 mmol/L (98-107); CREATININE 4.28 mg/dL (0.7-1.3)
[2019-12-12] MEDS: MULTIVITAMIN 1 TABLET PO SCH (08:28)
[2019-12-12] MEDS: CHOLECALCIFEROL 5,000u TAB PO SCH (08:28)
[2019-12-12] MEDS: CARVEDILOL 12.5 MG TABLET PO SCH ×2 (08:28→21:30)
[2019-12-12] MEDS: FUROSEMIDE 80 MG TABLET PO SCH ×2 (08:28→21:30)
[2019-12-12] MEDS: FLUOXETINE 10 MG CAP PO SCH (08:28)
[2019-12-12] MEDS: ASPIRIN 81 MG TABLET EC PO SCH (08:28)
[2019-12-12] MEDS: FENOFIBRATE 145 MG TABLET PO SCH (08:28)
[2019-12-12] MEDS: POLYETHYLENE GLYCOL 17 GM PACKET PO SCH ×2 (08:28→21:00)
[2019-12-12] MEDS: ALLOPURINOL 100 MG TABLET PO SCH (08:28)
[2019-12-12 13:44] VITALS: BP 102/64
[2019-12-12 19:38] VITALS: BP 131/85
[2019-12-12] MEDS: ATORVASTATIN 40 MG TABLET PO SCH (21:30)
[2019-12-12] MEDS: ACETAMINOPHEN 325 MG TABLET PO PRN (23:00)
[2019-12-13 00:19] VITALS: BP 93/61
[2019-12-13 06:55] VITALS: BP 138/82
[2019-12-13] MEDS: CHOLECALCIFEROL 5,000u TAB PO SCH (08:18)
[2019-12-13] MEDS: MULTIVITAMIN 1 TABLET PO SCH (08:18)
[2019-12-13] MEDS: POLYETHYLENE GLYCOL 17 GM PACKET PO SCH ×2 (08:18→20:26)
[2019-12-13] MEDS: FLUOXETINE 10 MG CAP PO SCH (08:18)
[2019-12-13] MEDS: FENOFIBRATE 145 MG TABLET PO SCH (08:18)
[2019-12-13] MEDS: FUROSEMIDE 80 MG TABLET PO SCH ×2 (08:19→20:27)
[2019-12-13] MEDS: ALLOPURINOL 100 MG TABLET PO SCH (08:19)
[2019-12-13] MEDS: ASPIRIN 81 MG TABLET EC PO SCH ×2 (08:19→14:45)
[2019-12-13] MEDS: CARVEDILOL 12.5 MG TABLET PO SCH ×2 (08:19→20:27)
[2019-12-13 09:11] LABS: BASOPHILS # (AUTO) 0.01 x10^3/uL (0-0.1); BASOPHILS % (AUTO) 0 % (0-1); EOSINOPHILS # (AUTO) 0.04 x10^3/uL (0-0.4); EOSINOPHILS % (AUTO) 1 % (1-7); LYMPHOCYTES # (AUTO) 0.46 x10^3/uL (1-3.4); LYMPHOCYTES % (AUTO) 13 % (22-44); MD NO; MEAN CORPUSCULAR HEMOGLOBIN 30.9 pg (27.5-34.5); MEAN CORPUSCULAR VOLUME 96.4 fL (81-97); MEAN PLATELET VOLUME 7.9 fL (7.4-10.4); MONOCYTES # (AUTO) 0.53 x10^3/uL (0.2-0.8); MONOCYTES % (AUTO) 15 % (2-9); NEUTROPHILS # (AUTO) 2.46 x10^3/uL (1.8-6.8); NEUTROPHILS % (AUTO) 70 % (42-75); PLATELET COUNT 149 x10^3/uL (130-400); RED BLOOD COUNT 3.19 x10^6/uL (4.38-5.82); RED CELL DISTRIBUTION WIDTH 16.5 % (9.4-14.8)
[2019-12-13 09:20] LABS: ANION GAP 11 mmol/L (5-15); CALCIUM 8.9 mg/dL (8.5-10.1); CHLORIDE 90 mmol/L (98-107); CREATININE 3.94 mg/dL (0.7-1.3)
[2019-12-13 12:17] VITALS: BP 144/74
[2019-12-13 20:22] VITALS: BP 109/69
[2019-12-13] MEDS: ATORVASTATIN 40 MG TABLET PO SCH (20:27)
[2019-12-14 02:23] VITALS: BP 95/54
[2019-12-14 05:52] LABS: BASOPHILS # (AUTO) 0.02 x10^3/uL (0-0.1); BASOPHILS % (AUTO) 1 % (0-1); CHLORIDE 91 mmol/L (98-107); EOSINOPHILS # (AUTO) 0.05 x10^3/uL (0-0.4); EOSINOPHILS % (AUTO) 2 % (1-7); LYMPHOCYTES # (AUTO) 0.66 x10^3/uL (1-3.4); LYMPHOCYTES % (AUTO) 19 % (22-44); MD NO; MEAN CORPUSCULAR HEMOGLOBIN 30.9 pg (27.5-34.5); MEAN CORPUSCULAR HGB CONC 32.3 g/dL (33.2-36.2); MEAN CORPUSCULAR VOLUME 95.5 fL (81-97); MEAN PLATELET VOLUME 9.4 fL (7.4-10.4); MONOCYTES % (AUTO) 18 % (2-9); NEUTROPHILS # (AUTO) 2.08 x10^3/uL (1.8-6.8); NEUTROPHILS % (AUTO) 61 % (42-75); PLATELET COUNT 131 x10^3/uL (130-400); RED BLOOD COUNT 2.98 x10^6/uL (4.38-5.82); RED CELL DISTRIBUTION WIDTH 16.4 % (9.4-14.8)
[2019-12-14 05:57] LABS: ANION GAP 7 mmol/L (5-15); CALCIUM 8.8 mg/dL (8.5-10.1); CREATININE 3.74 mg/dL (0.7-1.3)
[2019-12-14 07:50] VITALS: BP 102/61
[2019-12-14] MEDS: CARVEDILOL 3.125 MG TABLET PO SCH ×2 (08:14→21:00)
[2019-12-14] MEDS: FUROSEMIDE 80 MG TABLET PO SCH (08:14)
[2019-12-14] MEDS ORDERED: POTASSIUM CHLORIDE 20 MEQ TAB.ER.PRT ONE (08:15)
[2019-12-14] MEDS: FLUOXETINE 10 MG CAP PO SCH (08:18)
[2019-12-14] MEDS: CHOLECALCIFEROL 5,000u TAB PO SCH (08:18)
[2019-12-14] MEDS: ALLOPURINOL 100 MG TABLET PO SCH (08:19)
[2019-12-14] MEDS: FENOFIBRATE 145 MG TABLET PO SCH (08:19)
[2019-12-14] MEDS: MULTIVITAMIN 1 TABLET PO SCH (08:19)
[2019-12-14] MEDS: POLYETHYLENE GLYCOL 17 GM PACKET PO SCH ×2 (08:19→21:22)
[2019-12-14] MEDS ORDERED: POTASSIUM CHLORIDE 20 MEQ TAB.ER.PRT PO ONE (08:30)
[2019-12-14] MEDS ORDERED: FENTANYL PF 100 MCG/2ML ONE ×2 (10:03)
[2019-12-14] MEDS ORDERED: FLUMAZENIL 0.1 MG/1 ML, 5ML ONE (10:04)
[2019-12-14] MEDS ORDERED: LIDOCAINE 1%, 20ML ONE (10:04)
[2019-12-14] MEDS ORDERED: NALOXONE 1 MG/ML, 2ML ONE (10:04)
[2019-12-14] MEDS ORDERED: MIDAZOLAM 1 MG/ML, 5ML ONE (10:04)
[2019-12-14] MEDS ORDERED: CEFAZOLIN PMX 1GM/50ML 50 ML ONE (10:06)
[2019-12-14 12:02] VITALS: BP 121/69
[2019-12-14 13:50] VITALS: BP 100/50
[2019-12-14 21:19] VITALS: BP 104/49
[2019-12-14] MEDS: ATORVASTATIN 40 MG TABLET PO SCH (21:21)
[2019-12-14] MEDS: ACETAMINOPHEN 325 MG TABLET PO PRN (21:21)
[2019-12-14] MEDS: APIXABAN 5 MG TABLET PO SCH (21:21)
[2019-12-15 01:25] VITALS: BP 120/69
[2019-12-15] MEDS: ACETAMINOPHEN 325 MG TABLET PO PRN (03:32)
[2019-12-15 05:41] LABS: CALCIUM 9.1 mg/dL (8.5-10.1); CHLORIDE 93 mmol/L (98-107)
[2019-12-15 05:44] LABS: ANION GAP 11 mmol/L (5-15)
[2019-12-15 05:49] LABS: BASOPHILS # (AUTO) 0.01 x10^3/uL (0-0.1); BASOPHILS % (AUTO) 0 % (0-1); EOSINOPHILS # (AUTO) 0.07 x10^3/uL (0-0.4); EOSINOPHILS % (AUTO) 2 % (1-7); LYMPHOCYTES # (AUTO) 0.49 x10^3/uL (1-3.4); LYMPHOCYTES % (AUTO) 12 % (22-44); MD NO; MEAN CORPUSCULAR HEMOGLOBIN 30.6 pg (27.5-34.5); MEAN CORPUSCULAR HGB CONC 31.8 g/dL (33.2-36.2); MEAN CORPUSCULAR VOLUME 96.4 fL (81-97); MEAN PLATELET VOLUME 9.6 fL (7.4-10.4); MONOCYTES # (AUTO) 0.64 x10^3/uL (0.2-0.8); MONOCYTES % (AUTO) 16 % (2-9); NEUTROPHILS # (AUTO) 2.86 x10^3/uL (1.8-6.8); NEUTROPHILS % (AUTO) 70 % (42-75); PLATELET COUNT 133 x10^3/uL (130-400); RED CELL DISTRIBUTION WIDTH 16.5 % (9.4-14.8)
[2019-12-15] MEDS ORDERED: POTASSIUM CHLORIDE 20 MEQ TAB.ER.PRT PO ONE (06:30)
[2019-12-15 06:57] VITALS: BP 128/76
[2019-12-15] MEDS: POLYETHYLENE GLYCOL 17 GM PACKET PO SCH ×2 (09:00→20:59)
[2019-12-15 11:51] VITALS: BP 112/53
[2019-12-15] MEDS: CHOLECALCIFEROL 5,000u TAB PO SCH (12:18)
[2019-12-15] MEDS: FLUOXETINE 10 MG CAP PO SCH (12:19)
[2019-12-15] MEDS: APIXABAN 5 MG TABLET PO SCH ×2 (12:19→20:59)
[2019-12-15] MEDS: FENOFIBRATE 145 MG TABLET PO SCH (12:19)
[2019-12-15] MEDS: ASPIRIN 81 MG TABLET EC PO SCH (12:19)
[2019-12-15] MEDS: MULTIVITAMIN 1 TABLET PO SCH (12:19)
[2019-12-15] MEDS: CARVEDILOL 3.125 MG TABLET PO SCH ×2 (12:19→23:51)
[2019-12-15] MEDS ORDERED: POTASSIUM CHLORIDE 20 MEQ TAB.ER.PRT ONE (12:25)
[2019-12-15] MEDS: FUROSEMIDE 80 MG TABLET PO SCH (12:27)
[2019-12-15] MEDS: ALLOPURINOL 100 MG TABLET PO SCH (12:29)
[2019-12-15 14:15] VITALS: BP 94/55
[2019-12-15] MEDS ORDERED: FAMOTIDINE 20 MG TABLET PO SCH ×2 (16:00→17:00)
[2019-12-15] MEDS ORDERED: FAMOTIDINE 40 MG TABLET ONE (16:44)
[2019-12-15] MEDS: ATORVASTATIN 40 MG TABLET PO SCH (20:59)
[2019-12-15 21:04] VITALS: BP 110/67
[2019-12-15 23:50] VITALS: BP 114/67
[2019-12-16 05:14] LABS: BASOPHILS # (AUTO) 0.01 x10^3/uL (0-0.1); BASOPHILS % (AUTO) 0 % (0-1); EOSINOPHILS # (AUTO) 0.06 x10^3/uL (0-0.4); EOSINOPHILS % (AUTO) 2 % (1-7); LYMPHOCYTES # (AUTO) 0.57 x10^3/uL (1-3.4); LYMPHOCYTES % (AUTO) 16 % (22-44); MD NO; MEAN CORPUSCULAR HEMOGLOBIN 31.9 pg (27.5-34.5); MEAN CORPUSCULAR HGB CONC 32.6 g/dL (33.2-36.2); MEAN CORPUSCULAR VOLUME 97.6 fL (81-97); MEAN PLATELET VOLUME 8.3 fL (7.4-10.4); MONOCYTES % (AUTO) 20 % (2-9); NEUTROPHILS # (AUTO) 2.25 x10^3/uL (1.8-6.8); NEUTROPHILS % (AUTO) 63 % (42-75); PLATELET COUNT 125 x10^3/uL (130-400); RED CELL DISTRIBUTION WIDTH 17.1 % (9.4-14.8)
[2019-12-16 05:28] LABS: ANION GAP 9 mmol/L (5-15); CALCIUM 8.6 mg/dL (8.5-10.1); CHLORIDE 97 mmol/L (98-107)
[2019-12-16 05:29] LABS: CREATININE 2.59 mg/dL (0.7-1.3)
[2019-12-16 07:10] VITALS: BP 116/51
[2019-12-16] MEDS: POLYETHYLENE GLYCOL 17 GM PACKET PO SCH ×2 (08:41→21:28)
[2019-12-16] MEDS: ASPIRIN 81 MG TABLET EC PO SCH (08:42)
[2019-12-16] MEDS: FLUOXETINE 10 MG CAP PO SCH (08:42)
[2019-12-16] MEDS: ALLOPURINOL 100 MG TABLET PO SCH (08:42)
[2019-12-16] MEDS: APIXABAN 5 MG TABLET PO SCH ×2 (08:42→21:28)
[2019-12-16] MEDS: MULTIVITAMIN 1 TABLET PO SCH (08:42)
[2019-12-16] MEDS: FUROSEMIDE 80 MG TABLET PO SCH (08:42)
[2019-12-16] MEDS: FENOFIBRATE 145 MG TABLET PO SCH (08:43)
[2019-12-16] MEDS: CHOLECALCIFEROL 5,000u TAB PO SCH (08:43)
[2019-12-16] MEDS: CARVEDILOL 3.125 MG TABLET PO SCH ×2 (08:43→21:28)
[2019-12-16] MEDS ORDERED: FAMOTIDINE 20 MG TABLET PO SCH (09:00)
[2019-12-16 13:17] VITALS: BP 115/56
[2019-12-16] MEDS: ARANESP 60 MCG/ML **ESRD SQ SCH (13:20)
[2019-12-16] MEDS: FAMOTIDINE 20 MG TABLET PO SCH (17:30)
[2019-12-16 18:56] VITALS: BP 109/66
[2019-12-16] MEDS: ATORVASTATIN 40 MG TABLET PO SCH (21:28)
[2019-12-17 02:05] VITALS: BP 109/67
[2019-12-17 06:05] LABS: MEAN CORPUSCULAR HEMOGLOBIN 30.9 pg (27.5-34.5); MEAN CORPUSCULAR HGB CONC 31.8 g/dL (33.2-36.2); MEAN CORPUSCULAR VOLUME 97.2 fL (81-97); MEAN PLATELET VOLUME 9.3 fL (7.4-10.4); PLATELET COUNT 113 x10^3/uL (130-400); RED BLOOD COUNT 2.77 x10^6/uL (4.38-5.82); RED CELL DISTRIBUTION WIDTH 17.3 % (9.4-14.8)
[2019-12-17 06:08] LABS: ANION GAP 9 mmol/L (5-15); CALCIUM 8.1 mg/dL (8.5-10.1); CHLORIDE 100 mmol/L (98-107)
[2019-12-17 06:12] LABS: ALANINE AMINOTRANSFERASE 12 U/L (12-78); ALKALINE PHOSPHATASE 22 U/L (45-117); BILIRUBIN,TOTAL 0.8 mg/dL (0.2-1.0); CREATININE 2.32 mg/dL (0.7-1.3); TOTAL PROTEIN 7.1 g/dL (6.4-8.2)
[2019-12-17 06:32] VITALS: BP 137/77
[2019-12-17 06:36] LABS: MD YES
[2019-12-17 06:39] LABS: BAND#(MANUAL) 0.17 x10^3/uL; BANDS%(MANUAL) 5 % (0-7); BASOS#(MANUAL) 0.03 x10^3/uL (0-0.1); BASOS% (MANUAL) 1 % (0-1); EOS% (MANUAL) 3 % (1-7); LYMPH#(MANUAL) 0.53 x10^3/uL (1-3.4); LYMPHS% (MANUAL) 16 % (22-44); MONOS#(MANUAL) 0.46 x10^3/uL (0.3-2.7); MONOS% (MANUAL) 14 % (2-9); SEG#(MANUAL) 2.01 x10^3/uL (1.8-6.8); SEGS% (MANUAL) 61 % (42-75)
[2019-12-17 06:40] LABS: <PLATELET ESTIMATE> DECREASED; <PLT MORPHOLOGY> NORMAL PLT MORPH; ANISOCYTOSIS 1+; OVALOCYTES 1+
[2019-12-17] MEDS: POLYETHYLENE GLYCOL 17 GM PACKET PO SCH ×2 (09:00→21:08)
[2019-12-17 12:35] VITALS: BP 152/86
[2019-12-17] MEDS: CARVEDILOL 3.125 MG TABLET PO SCH ×2 (12:50→21:08)
[2019-12-17] MEDS: FENOFIBRATE 145 MG TABLET PO SCH (12:51)
[2019-12-17] MEDS: MULTIVITAMIN 1 TABLET PO SCH (12:51)
[2019-12-17] MEDS: APIXABAN 5 MG TABLET PO SCH ×2 (12:51→21:08)
[2019-12-17] MEDS: ASPIRIN 81 MG TABLET EC PO SCH (12:51)
[2019-12-17] MEDS: CHOLECALCIFEROL 5,000u TAB PO SCH (12:51)
[2019-12-17] MEDS: FUROSEMIDE 80 MG TABLET PO SCH (12:51)
[2019-12-17] MEDS: FLUOXETINE 10 MG CAP PO SCH (12:51)
[2019-12-17] MEDS: ALLOPURINOL 100 MG TABLET PO SCH (12:51)
[2019-12-17] MEDS: FAMOTIDINE 20 MG TABLET PO SCH (17:39)
[2019-12-17 20:02] VITALS: BP 99/63
[2019-12-17] MEDS: ATORVASTATIN 40 MG TABLET PO SCH (21:08)
[2019-12-18 00:35] VITALS: BP 104/63
[2019-12-18] MEDS: ACETAMINOPHEN 325 MG TABLET PO PRN (02:36)
[2019-12-18 06:11] LABS: MEAN CORPUSCULAR HGB CONC 31.7 g/dL (33.2-36.2); MEAN CORPUSCULAR VOLUME 97.7 fL (81-97); MEAN PLATELET VOLUME 9.1 fL (7.4-10.4); PLATELET COUNT 118 x10^3/uL (130-400); RED BLOOD COUNT 2.92 x10^6/uL (4.38-5.82); RED CELL DISTRIBUTION WIDTH 17.7 % (9.4-14.8)
[2019-12-18 06:20] LABS: ANION GAP 6 mmol/L (5-15); CALCIUM 8.5 mg/dL (8.5-10.1); CHLORIDE 100 mmol/L (98-107); CREATININE 2.33 mg/dL (0.7-1.3)
[2019-12-18 06:38] LABS: MD YES
[2019-12-18 06:40] LABS: <PLATELET ESTIMATE> DECREASED; <PLT MORPHOLOGY> NORMAL PLT MORPH; ANISOCYTOSIS 1+; BAND#(MANUAL) 0.04 x10^3/uL; BANDS%(MANUAL) 1 % (0-7); EOS#(MANUAL) 0.04 x10^3/uL (0.0-0.4); EOS% (MANUAL) 1 % (1-7); LYMPH#(MANUAL) 0.76 x10^3/uL (1-3.4); LYMPHS% (MANUAL) 20 % (22-44); METAMYELOCYTES# (MANUAL) 0.04 x10^3/uL (0-0); METAMYELOCYTES% (MANUAL) 1 % (0-1); MONOS#(MANUAL) 0.84 x10^3/uL (0.3-2.7); MONOS% (MANUAL) 22 % (2-9); OVALOCYTES 1+; SEG#(MANUAL) 2.09 x10^3/uL (1.8-6.8); SEGS% (MANUAL) 55 % (42-75)
[2019-12-18 08:26] VITALS: BP 110/56
[2019-12-18] MEDS: MULTIVITAMIN 1 TABLET PO SCH (08:45)
[2019-12-18] MEDS: APIXABAN 5 MG TABLET PO SCH ×2 (08:45→20:26)
[2019-12-18] MEDS: CHOLECALCIFEROL 5,000u TAB PO SCH (08:45)
[2019-12-18] MEDS: FUROSEMIDE 80 MG TABLET PO SCH (08:45)
[2019-12-18] MEDS: ASPIRIN 81 MG TABLET EC PO SCH (08:45)
[2019-12-18] MEDS: FENOFIBRATE 145 MG TABLET PO SCH (08:45)
[2019-12-18] MEDS: ALLOPURINOL 100 MG TABLET PO SCH (08:45)
[2019-12-18] MEDS: FLUOXETINE 10 MG CAP PO SCH (08:45)
[2019-12-18] MEDS: CARVEDILOL 3.125 MG TABLET PO SCH ×2 (08:45→20:25)
[2019-12-18] MEDS: POLYETHYLENE GLYCOL 17 GM PACKET PO SCH ×2 (08:46→20:28)
[2019-12-18 15:40] VITALS: BP 101/64
[2019-12-18] MEDS: FAMOTIDINE 20 MG TABLET PO SCH (17:28)
[2019-12-18 19:43] VITALS: BP 116/68
[2019-12-18] MEDS: ATORVASTATIN 40 MG TABLET PO SCH (20:25)
[2019-12-18] MEDS: RISPERIDONE 0.5 MG TABLET PO SCH (20:26)
[2019-12-19 01:14] VITALS: BP 121/60
[2019-12-19 06:01] LABS: BASOPHILS # (AUTO) 0.01 x10^3/uL (0-0.1); BASOPHILS % (AUTO) 0 % (0-1); EOSINOPHILS # (AUTO) 0.05 x10^3/uL (0-0.4); EOSINOPHILS % (AUTO) 1 % (1-7); LYMPHOCYTES # (AUTO) 0.64 x10^3/uL (1-3.4); LYMPHOCYTES % (AUTO) 16 % (22-44); MD NO; MEAN CORPUSCULAR HEMOGLOBIN 31.3 pg (27.5-34.5); MEAN CORPUSCULAR HGB CONC 31.6 g/dL (33.2-36.2); MEAN PLATELET VOLUME 8.7 fL (7.4-10.4); MONOCYTES # (AUTO) 0.73 x10^3/uL (0.2-0.8); MONOCYTES % (AUTO) 18 % (2-9); NEUTROPHILS # (AUTO) 2.62 x10^3/uL (1.8-6.8); NEUTROPHILS % (AUTO) 65 % (42-75); PLATELET COUNT 118 x10^3/uL (130-400); RED BLOOD COUNT 2.92 x10^6/uL (4.38-5.82); RED CELL DISTRIBUTION WIDTH 17.5 % (9.4-14.8)
[2019-12-19 06:05] LABS: ANION GAP 4 mmol/L (5-15); CALCIUM 8.3 mg/dL (8.5-10.1); CHLORIDE 100 mmol/L (98-107)
[2019-12-19 06:06] LABS: CREATININE 2.69 mg/dL (0.7-1.3)
[2019-12-19 08:20] VITALS: BP 131/63
[2019-12-19 11:40] VITALS: BP 142/68
[2019-12-19] MEDS: MULTIVITAMIN 1 TABLET PO SCH (12:35)
[2019-12-19] MEDS: FENOFIBRATE 145 MG TABLET PO SCH (12:35)
[2019-12-19] MEDS: APIXABAN 5 MG TABLET PO SCH ×2 (12:36→20:46)
[2019-12-19] MEDS: POLYETHYLENE GLYCOL 17 GM PACKET PO SCH ×2 (12:36→20:47)
[2019-12-19] MEDS: ASPIRIN 81 MG TABLET EC PO SCH (12:36)
[2019-12-19] MEDS: FUROSEMIDE 80 MG TABLET PO SCH (12:36)
[2019-12-19] MEDS: CARVEDILOL 3.125 MG TABLET PO SCH ×2 (12:37→20:45)
[2019-12-19] MEDS: CHOLECALCIFEROL 5,000u TAB PO SCH (12:37)
[2019-12-19] MEDS: FLUOXETINE 10 MG CAP PO SCH (12:37)
[2019-12-19] MEDS: ALLOPURINOL 100 MG TABLET PO SCH (12:37)
[2019-12-19 15:46] VITALS: BP 126/76
[2019-12-19] MEDS: FAMOTIDINE 20 MG TABLET PO SCH (17:18)
[2019-12-19 19:15] VITALS: BP 104/65
[2019-12-19 20:44] VITALS: BP 101/65
[2019-12-19] MEDS: ATORVASTATIN 40 MG TABLET PO SCH (20:45)
[2019-12-19] MEDS: RISPERIDONE 0.5 MG TABLET PO SCH (20:46)
[2019-12-20 01:03] VITALS: BP 112/65
[2019-12-20 07:10] VITALS: BP 113/67
[2019-12-20 07:10] LABS: BASOPHILS # (AUTO) 0.02 x10^3/uL (0-0.1); BASOPHILS % (AUTO) 1 % (0-1); EOSINOPHILS # (AUTO) 0.05 x10^3/uL (0-0.4); EOSINOPHILS % (AUTO) 1 % (1-7); LYMPHOCYTES # (AUTO) 0.77 x10^3/uL (1-3.4); LYMPHOCYTES % (AUTO) 19 % (22-44); MD NO; MEAN CORPUSCULAR HGB CONC 31.4 g/dL (33.2-36.2); MEAN CORPUSCULAR VOLUME 98.6 fL (81-97); MEAN PLATELET VOLUME 8.8 fL (7.4-10.4); MONOCYTES # (AUTO) 0.81 x10^3/uL (0.2-0.8); MONOCYTES % (AUTO) 20 % (2-9); NEUTROPHILS # (AUTO) 2.48 x10^3/uL (1.8-6.8); NEUTROPHILS % (AUTO) 60 % (42-75); PLATELET COUNT 129 x10^3/uL (130-400); RED BLOOD COUNT 2.96 x10^6/uL (4.38-5.82)
[2019-12-20 07:16] LABS: ANION GAP 8 mmol/L (5-15); CALCIUM 8.4 mg/dL (8.5-10.1); CHLORIDE 101 mmol/L (98-107); CREATININE 2.42 mg/dL (0.7-1.3)
[2019-12-20] MEDS: POLYETHYLENE GLYCOL 17 GM PACKET PO SCH ×2 (09:00→21:00)
[2019-12-20] MEDS: MULTIVITAMIN 1 TABLET PO SCH (09:33)
[2019-12-20] MEDS: FLUOXETINE 10 MG CAP PO SCH (09:33)
[2019-12-20] MEDS: CHOLECALCIFEROL 5,000u TAB PO SCH (09:33)
[2019-12-20] MEDS: CARVEDILOL 3.125 MG TABLET PO SCH ×2 (09:33→20:53)
[2019-12-20] MEDS: ALLOPURINOL 100 MG TABLET PO SCH (09:34)
[2019-12-20] MEDS: FUROSEMIDE 80 MG TABLET PO SCH (09:34)
[2019-12-20] MEDS: FENOFIBRATE 145 MG TABLET PO SCH (09:34)
[2019-12-20] MEDS: ASPIRIN 81 MG TABLET EC PO SCH (09:34)
[2019-12-20] MEDS: APIXABAN 5 MG TABLET PO SCH ×2 (09:46→20:54)
[2019-12-20 12:52] VITALS: BP 131/63
[2019-12-20] MEDS: FAMOTIDINE 20 MG TABLET PO SCH (17:57)
[2019-12-20 18:33] VITALS: BP 100/60
[2019-12-20 20:52] VITALS: BP 107/68
[2019-12-20] MEDS: RISPERIDONE 0.5 MG TABLET PO SCH (20:54)
[2019-12-20] MEDS: ATORVASTATIN 40 MG TABLET PO SCH (20:54)
[2019-12-21 00:45] VITALS: BP 93/59
[2019-12-21 02:11] VITALS: BP 108/75
[2019-12-21 06:16] LABS: MEAN CORPUSCULAR HEMOGLOBIN 30.9 pg (27.5-34.5); MEAN CORPUSCULAR HGB CONC 31.6 g/dL (33.2-36.2); MEAN CORPUSCULAR VOLUME 97.8 fL (81-97); MEAN PLATELET VOLUME 8.9 fL (7.4-10.4); PLATELET COUNT 123 x10^3/uL (130-400); RED BLOOD COUNT 2.91 x10^6/uL (4.38-5.82); RED CELL DISTRIBUTION WIDTH 18.1 % (9.4-14.8)
[2019-12-21 06:23] LABS: ALANINE AMINOTRANSFERASE 12 U/L (12-78); ALBUMIN 2.9 g/dL (3.4-5.0); ANION GAP 6 mmol/L (5-15); CALCIUM 8.2 mg/dL (8.5-10.1); CHLORIDE 101 mmol/L (98-107); CREATININE 3.56 mg/dL (0.7-1.3)
[2019-12-21 06:25] LABS: ALKALINE PHOSPHATASE 21 U/L (45-117); BILIRUBIN,TOTAL 0.8 mg/dL (0.2-1.0); TOTAL PROTEIN 7.1 g/dL (6.4-8.2)
[2019-12-21 06:44] LABS: MD YES
[2019-12-21 06:46] LABS: BAND#(MANUAL) 0.04 x10^3/uL; BANDS%(MANUAL) 1 % (0-7)
[2019-12-21 06:47] LABS: LYMPH#(MANUAL) 0.76 x10^3/uL (1-3.4); LYMPHS% (MANUAL) 18 % (22-44); MONOS% (MANUAL) 18 % (2-9); SEG#(MANUAL) 2.52 x10^3/uL (1.8-6.8); SEGS% (MANUAL) 60 % (42-75)
[2019-12-21 06:48] LABS: <PLATELET ESTIMATE> DECREASED; <PLT MORPHOLOGY> NORMAL PLT MORPH; ANISOCYTOSIS 1+; EOS#(MANUAL) 0.13 x10^3/uL (0.0-0.4); EOS% (MANUAL) 3 % (1-7); HYPOCHROMIA 1+; MONOS#(MANUAL) 0.76 x10^3/uL (0.3-2.7); OVALOCYTES 1+; POLYCHROMASIA 1+
[2019-12-21 07:14] VITALS: BP 126/77
[2019-12-21] MEDS: CARVEDILOL 3.125 MG TABLET PO SCH ×2 (09:00→20:05)
[2019-12-21] MEDS: MULTIVITAMIN 1 TABLET PO SCH (09:00)
[2019-12-21] MEDS: CHOLECALCIFEROL 5,000u TAB PO SCH (13:21)
[2019-12-21] MEDS: ASPIRIN 81 MG TABLET EC PO SCH (13:21)
[2019-12-21] MEDS: FENOFIBRATE 145 MG TABLET PO SCH (13:21)
[2019-12-21] MEDS: FLUOXETINE 10 MG CAP PO SCH (13:21)
[2019-12-21] MEDS: FUROSEMIDE 80 MG TABLET PO SCH (13:22)
[2019-12-21] MEDS: APIXABAN 5 MG TABLET PO SCH (13:22)
[2019-12-21] MEDS: POLYETHYLENE GLYCOL 17 GM PACKET PO SCH ×2 (13:23→19:59)
[2019-12-21 13:24] VITALS: BP 128/72
[2019-12-21] MEDS: ALLOPURINOL 100 MG TABLET PO SCH (13:31)
[2019-12-21] MEDS: FAMOTIDINE 20 MG TABLET PO SCH (15:47)
[2019-12-21 19:04] VITALS: BP 108/67
[2019-12-21] MEDS: ATORVASTATIN 40 MG TABLET PO SCH (20:05)
[2019-12-22] MEDS: APIXABAN 5 MG TABLET PO SCH ×3 (00:18→20:46)
[2019-12-22 00:19] VITALS: BP 99/64
[2019-12-22 04:09] LABS: BASOPHILS # (AUTO) 0.01 x10^3/uL (0-0.1); BASOPHILS % (AUTO) 0 % (0-1); EOSINOPHILS % (AUTO) 2 % (1-7); LYMPHOCYTES % (AUTO) 17 % (22-44); MD NO; MEAN CORPUSCULAR HEMOGLOBIN 30.9 pg (27.5-34.5); MEAN CORPUSCULAR HGB CONC 31.7 g/dL (33.2-36.2); MEAN CORPUSCULAR VOLUME 97.2 fL (81-97); MEAN PLATELET VOLUME 8.5 fL (7.4-10.4); MONOCYTES # (AUTO) 0.92 x10^3/uL (0.2-0.8); MONOCYTES % (AUTO) 19 % (2-9); NEUTROPHILS # (AUTO) 2.99 x10^3/uL (1.8-6.8); NEUTROPHILS % (AUTO) 62 % (42-75); PLATELET COUNT 137 x10^3/uL (130-400); RED BLOOD COUNT 3.09 x10^6/uL (4.38-5.82); RED CELL DISTRIBUTION WIDTH 17.6 % (9.4-14.8)
[2019-12-22 04:23] LABS: ANION GAP 6 mmol/L (5-15); CALCIUM 8.2 mg/dL (8.5-10.1); CHLORIDE 98 mmol/L (98-107)
[2019-12-22 04:26] LABS: CREATININE 3.55 mg/dL (0.7-1.3)
[2019-12-22 08:22] VITALS: BP 107/76
[2019-12-22] MEDS: CHOLECALCIFEROL 5,000u TAB PO SCH (08:54)
[2019-12-22] MEDS: FLUOXETINE 10 MG CAP PO SCH (08:54)
[2019-12-22] MEDS: FUROSEMIDE 80 MG TABLET PO SCH (08:54)
[2019-12-22] MEDS: FENOFIBRATE 145 MG TABLET PO SCH (08:54)
[2019-12-22] MEDS: ASPIRIN 81 MG TABLET EC PO SCH (08:55)
[2019-12-22] MEDS: MULTIVITAMIN 1 TABLET PO SCH (08:55)
[2019-12-22] MEDS: CARVEDILOL 3.125 MG TABLET PO SCH ×2 (08:55→20:46)
[2019-12-22] MEDS: POLYETHYLENE GLYCOL 17 GM PACKET PO SCH ×2 (08:55→19:40)
[2019-12-22] MEDS: ALLOPURINOL 100 MG TABLET PO SCH (08:55)
[2019-12-22] MEDS: FAMOTIDINE 20 MG TABLET PO SCH (17:55)
[2019-12-22 18:35] VITALS: BP 95/63
[2019-12-22 20:42] VITALS: BP 106/69
[2019-12-22] MEDS: ATORVASTATIN 40 MG TABLET PO SCH (20:46)
[2019-12-22] MEDS: RISPERIDONE 0.5 MG TABLET PO SCH (21:54)
[2019-12-23 00:16] VITALS: BP 108/72
[2019-12-23] MEDS: ACETAMINOPHEN 325 MG TABLET PO PRN (02:59)
[2019-12-23 03:01] VITALS: BP 116/58
[2019-12-23] MEDS: POLYETHYLENE GLYCOL 17 GM PACKET PO SCH (09:00)
[2019-12-23 09:17] VITALS: BP 92/56
[2019-12-23] MEDS: APIXABAN 5 MG TABLET PO SCH (09:29)
[2019-12-23] MEDS: ALLOPURINOL 100 MG TABLET PO SCH (09:30)
[2019-12-23] MEDS: FLUOXETINE 10 MG CAP PO SCH (09:30)
[2019-12-23] MEDS: MULTIVITAMIN 1 TABLET PO SCH (09:30)
[2019-12-23] MEDS: CHOLECALCIFEROL 5,000u TAB PO SCH (09:30)
[2019-12-23] MEDS: FENOFIBRATE 145 MG TABLET PO SCH (09:30)
[2019-12-23] MEDS: ASPIRIN 81 MG TABLET EC PO SCH (09:31)
[2019-12-23] MEDS: CARVEDILOL 3.125 MG TABLET PO SCH (09:31)
[2019-12-23] MEDS: FUROSEMIDE 80 MG TABLET PO SCH (09:31)
[2019-12-23] MEDS ORDERED: DOCU100C33 PO (10:46)
[2019-12-23] MEDS ORDERED: FLUO20CA19 PO (10:46)
[2019-12-23] MEDS ORDERED: FURO-92 PO (10:46)
[2019-12-23] MEDS ORDERED: APIX5TAB PO (10:46)
[2019-12-23] MEDS ORDERED: DARB60VI SQ ×3 (10:46→10:53)
[2019-12-23] MEDS ORDERED: CARV3.1212 PO (10:46)
[2019-12-23] MEDS: ARANESP 60 MCG/ML **ESRD SQ SCH (13:00)
[2019-12-23 13:13] VITALS: BP 101/65
== END 2019-12-23 15:25 | disposition home health service (06) | DRG 673 ==
LOC: ED 23:17 → EDIP 23:53 → 5SO 11-30 01:40 → 4WST 12-17 20:18 → DCLOUNGE 12-23 15:04
PROVIDERS: ADMIT Family Medicine; ATTEND Internal Medicine
PROC: 0W9G3ZZ Drainage of Peritoneal Cavity, Percutaneous Approach (ICD-10-PCS; 2019-11-30)
PROC: 0W9G3ZZ Drainage of Peritoneal Cavity, Percutaneous Approach (ICD-10-PCS; 2019-11-30)
PROC: 0W993ZZ Drainage of Right Pleural Cavity, Percutaneous Approach (ICD-10-PCS; 2019-12-03)
PROC: 5A09357 Assistance with Respiratory Ventilation, Less than 24 Consecutive Hours, Continuous Positive Airway Pressure (ICD-10-PCS; 2019-12-05)
PROC: 5A09357 Assistance with Respiratory Ventilation, Less than 24 Consecutive Hours, Continuous Positive Airway Pressure (ICD-10-PCS; 2019-12-07)
PROC: 5A09357 Assistance with Respiratory Ventilation, Less than 24 Consecutive Hours, Continuous Positive Airway Pressure (ICD-10-PCS; 2019-12-08)
PROC: 5A09357 Assistance with Respiratory Ventilation, Less than 24 Consecutive Hours, Continuous Positive Airway Pressure (ICD-10-PCS; 2019-12-10)
PROC: 5A09357 Assistance with Respiratory Ventilation, Less than 24 Consecutive Hours, Continuous Positive Airway Pressure (ICD-10-PCS; 2019-12-12)
PROC: 5A09357 Assistance with Respiratory Ventilation, Less than 24 Consecutive Hours, Continuous Positive Airway Pressure (ICD-10-PCS; 2019-12-13)
PROC: 0JH63XZ Insertion of Tunneled Vascular Access Device into Chest Subcutaneous Tissue and Fascia, Percutaneous Approach (ICD-10-PCS; 2019-12-14)
PROC: 5A09357 Assistance with Respiratory Ventilation, Less than 24 Consecutive Hours, Continuous Positive Airway Pressure (ICD-10-PCS; 2019-12-14)
PROC: 02HV33Z Insertion of Infusion Device into Superior Vena Cava, Percutaneous Approach (ICD-10-PCS; 2019-12-14)
PROC: B5181ZA Fluoroscopy of Superior Vena Cava using Low Osmolar Contrast, Guidance (ICD-10-PCS; 2019-12-14)
PROC: B548ZZA Ultrasonography of Superior Vena Cava, Guidance (ICD-10-PCS; 2019-12-14)
PROC: 5A1D70Z Performance of Urinary Filtration, Intermittent, Less than 6 Hours Per Day (ICD-10-PCS; 2019-12-15)
PROC: 5A09357 Assistance with Respiratory Ventilation, Less than 24 Consecutive Hours, Continuous Positive Airway Pressure (ICD-10-PCS; 2019-12-16)
PROC: 5A1D70Z Performance of Urinary Filtration, Intermittent, Less than 6 Hours Per Day (ICD-10-PCS; 2019-12-16)
PROC: 5A1D70Z Performance of Urinary Filtration, Intermittent, Less than 6 Hours Per Day (ICD-10-PCS; 2019-12-17)
PROC: 5A09357 Assistance with Respiratory Ventilation, Less than 24 Consecutive Hours, Continuous Positive Airway Pressure (ICD-10-PCS; 2019-12-18)
PROC: 5A09357 Assistance with Respiratory Ventilation, Less than 24 Consecutive Hours, Continuous Positive Airway Pressure (ICD-10-PCS; 2019-12-19)
PROC: 5A1D70Z Performance of Urinary Filtration, Intermittent, Less than 6 Hours Per Day (ICD-10-PCS; 2019-12-19)
PROC: 5A09357 Assistance with Respiratory Ventilation, Less than 24 Consecutive Hours, Continuous Positive Airway Pressure (ICD-10-PCS; 2019-12-20)
PROC: 5A09357 Assistance with Respiratory Ventilation, Less than 24 Consecutive Hours, Continuous Positive Airway Pressure (ICD-10-PCS; principal; 2019-12-21)
PROC: 5A1D70Z Performance of Urinary Filtration, Intermittent, Less than 6 Hours Per Day (ICD-10-PCS; 2019-12-21)
PROC: 5A1D70Z Performance of Urinary Filtration, Intermittent, Less than 6 Hours Per Day (ICD-10-PCS; 2019-12-22)
DX: N17.9 Acute kidney failure, unspecified (principal); I50.43 Acute on chronic combined systolic (congestive) and diastolic (congestive) heart failure; J96.21 Acute and chronic respiratory failure with hypoxia; I13.0 Hypertensive heart and chronic kidney disease with heart failure and stage 1 through stage 4 chronic kidney disease, or unspecified chronic kidney disease; R18.8 Other ascites; I48.20 Chronic atrial fibrillation, unspecified; I47.2 Ventricular tachycardia; Z68.42 Body mass index [BMI] 45.0-49.9, adult; N18.4 Chronic kidney disease, stage 4 (severe); I27.20 Pulmonary hypertension, unspecified; Z79.4 Long term (current) use of insulin; E11.42 Type 2 diabetes mellitus with diabetic polyneuropathy; E87.5 Hyperkalemia; D50.9 Iron deficiency anemia, unspecified; I25.10 Atherosclerotic heart disease of native coronary artery without angina pectoris; E78.5 Hyperlipidemia, unspecified; G47.33 Obstructive sleep apnea (adult) (pediatric); R04.0 Epistaxis; M10.9 Gout, unspecified; E66.01 Morbid (severe) obesity due to excess calories; I25.5 Ischemic cardiomyopathy; D63.8 Anemia in other chronic diseases classified elsewhere; I27.29 Other secondary pulmonary hypertension; I50.82 Biventricular heart failure; Z99.2 Dependence on renal dialysis; I48.0 Paroxysmal atrial fibrillation; F02.80 Dementia in other diseases classified elsewhere, unspecified severity, without behavioral disturbance, psychotic disturbance, mood disturbance, and anxiety; H53.2 Diplopia; T50.1X5A Adverse effect of loop [high-ceiling] diuretics, initial encounter; K80.20 Calculus of gallbladder without cholecystitis without obstruction; K59.00 Constipation, unspecified; K74.60 Unspecified cirrhosis of liver; J43.9 Emphysema, unspecified; G71.00 Muscular dystrophy, unspecified; F41.9 Anxiety disorder, unspecified; I25.2 Old myocardial infarction; I35.0 Nonrheumatic aortic (valve) stenosis; I49.3 Ventricular premature depolarization; M17.0 Bilateral primary osteoarthritis of knee; W06.XXXA Fall from bed, initial encounter; Z79.01 Long term (current) use of anticoagulants; Z20.828 Contact with and (suspected) exposure to other viral communicable diseases; Z82.49 Family history of ischemic heart disease and other diseases of the circulatory system; Z80.3 Family history of malignant neoplasm of breast; Z82.0 Family history of epilepsy and other diseases of the nervous system; Z99.81 Dependence on supplemental oxygen; Z81.8 Family history of other mental and behavioral disorders; Z79.899 Other long term (current) drug therapy; Z87.891 Personal history of nicotine dependence; Y93.89 Activity, other specified; Y92.89 Other specified places as the place of occurrence of the external cause; Y99.8 Other external cause status
CPT/HCPCS: 32555; 36415; 36558; 36600; 49083; 70450; 71045; 71250; 74176; 76937; 77001; 80048; 80053; 80069; 82042; 82550; 82728; 82803; 82962; 83036; 83540; 83550; 83735; 83880; 84100; 84132; 84157; 84443; 84484; 85025; 85610; 85730; 86480; 86705; 86706; 87070; 87205; 87340; 88112; 88305; 89051; 90935; 93005; 99156; 99157; 99291; C8929; G0378; J0690; J0696; J0882; J1756; J1940; J2250; J3010; P9047; C1750; J1642; J1815; J2310; J3475; U0001-CS